=== PATIENT | male | born 1975 | race Caucasian/White ===

== ENCOUNTER 2018-06-24 17:55 | Emergency (ER) | payer MEDICAID, SELFPAY ==
[2018-06-24] VITALS (70 sets, daily range): BP systolic 92–193; BP diastolic 28–105; PULSE 50–81; RESP 9–28; TEMP 36.3; O2SAT 73–100
--- NOTE | 2018-06-24 18:22 | DI.CT_ITS ---
SYMPTOMS/DIAGNOSIS: AGITATED DELIRIUM, ALTERED MENTAL STATUS; VOMITING CT BRAIN, NONCONTRAST: No priors. There is normal finney-white matter differentiation. No intracranial hemorrhage, infarct, midline shift or mass effect is identified. The ventricles are intact. The basilar cisterns are patent. There is opacification of several ethmoid air cells. The visualized paranasal sinuses are otherwise clear. The mastoid air cells are well pneumatized. The calvarium is intact. IMPRESSION: No acute intracranial process. CT SCAN OF THE CHEST, ABDOMEN AND PELVIS: CT scan of the chest, abdomen and pelvis was performed following the uneventful administration of intravenous contrast material. There is some streak artifact present. The liver is normal in size and appearance. The portal and superior mesenteric veins are patent. The gallbladder is negative. No biliary ductal dilatation is seen. The pancreas, spleen and adrenal glands are unremarkable. The kidneys show normal and symmetric enhancement. No evidence of a solid renal mass or obstruction. The urinary bladder is incompletely distended. There is a Lawson catheter in place. There is a small amount of air within the bladder, most consistent with recent instrumentation. The reproductive organs are unremarkable. There is diverticulosis seen in the colon, but no evidence of acute diverticulitis. There is an air-filled appendix present. No periappendiceal changes are seen to suggest an acute appendicitis. The remainder of the bowel is unremarkable. Note is made of a nasogastric tube with its tip in the stomach. The aorta is of normal caliber. No significant abdominal or pelvic adenopathy, ascites or pneumoperitoneum is seen. Degenerative changes are seen in the spine with vacuum discs at L3-4 and L5-S1. IMPRESSION: No evidence of an acute abdomen. CT SCAN OF THE CHEST: There is an endotracheal tube, its tip is well above the oanh. Nasogastric tube passes into the stomach. The thoracic aorta is of normal caliber. Heart size is within normal limits. No significant pericardial effusion is seen. No significant mediastinal or hilar adenopathy is present. No significant axillary adenopathy is present. Note is made of multiple left rib fractures, some of which appear healed and some are nonunited. There are infiltrates seen in the lower lobes bilaterally and the dependent portion of the right upper lobe. There are small bilateral pleural effusions. There is no evidence of a pneumothorax. IMPRESSION: 1. Bilateral pulmonary infiltrates in the lower lobes and the right upper lobe. These may represent atelectasis or pneumonia. 2. Multiple old left rib fracture deformities.
[2018-06-24] MEDS: diphenhydrAMINE 50 MG/ML VIAL (18:25)
[2018-06-24] MEDS: Haloperidol 5 MG/ML VIAL (18:25)
[2018-06-24] MEDS: Normal Saline 1,000 ML 1000 ML IV ×4 (18:25→20:25)
[2018-06-24] MEDS: LORazepam 2 MG/ML VIAL (18:26)
[2018-06-24] MEDS: Etomidate 20 MG/10 ML VIAL IVP (18:35)
[2018-06-24] MEDS: Rocuronium 50 MG/5 ML SYR 100 MG IVP (18:35)
[2018-06-24] MEDS: PROPOFOL 1,000 MG/100 ML BTL 19.391 MG IVPB (18:40)
--- NOTE | 2018-06-24 18:46 | DI.RAD_ITS ---
SYMPTOMS/DIAGNOSIS: DEVICE PLACEMENT, INTUBATED CHEST X-RAY, PORTABLE AP VIEW: No priors. The heart size and pulmonary vasculature are within normal limits. There is poor inspiration. There is an infiltrate seen in the left lung base. This may represent atelectasis or pneumonia. No pneumothorax or pleural effusion is seen. There are old rib fractures, some of which appear nonunited. The endotracheal tube is in good position well above the oanh. The nasogastric tube is seen with its tip in the stomach. IMPRESSION: Left basilar infiltrate. This may represent atelectasis or pneumonia.
[2018-06-24 19:05] LABS: Abs Immature Grans 0.22 k/cumm (0.0-0.09); HCT 41.6 % (40.0-50.0); HGB 14.3 g/dL (13.5-17.5); Immature Grans % 0.7; Mean Corp. HGB Concentration 34.4 g/dL (32.0-36.0); Mean Corpuscular Hemoglobin 30.6 pg (27.0-33.0); Mean Corpuscular Volume 88.9 fL (80-95); Platelet Count 300 x1000/uL (130-400); RBC 4.68 m/cumm (4.50-6.00); RBC Distribution Width 12.9 % (11.8-14.1)
[2018-06-24 19:17] LABS: White Blood Cell Count 30.97 k/cumm (4.4-10.8)
[2018-06-24 19:19] LABS: *AMPHETAMINES SCREEN URINE Negative (Negative); *BARBITURATES SCREEN URINE Negative (Negative); *BENZODIAZEPINES SCREEN URINE Negative (Negative); Cannabinoids THC Negative (Negative); Cocaine Screen,Urine Negative (Negative); METHADONE URINE SCREEN Negative (Negative); OPIATES URINE SCREEN Negative (Negative)
[2018-06-24 19:20] LABS: Bilirubin Negative (Negative); Blood Negative (Negative); Clarity Clear; Glucose Negative (Negative); Ketones 15 mg/dL (Negative); Leukocyte Esterase Negative (Negative); Nitrite Negative (Negative); Specific Gravity >= 1.030 (1.005-1.025); Urobilinogen 0.2 EU/dL (Up TO 0.2); pH 5.5 (5-8)
[2018-06-24 19:23] LABS: C-Reactive Protein 0.59 mg/dL (0.0-0.3)
[2018-06-24 19:25] LABS: Salicylate 5.4 mg/dL (2.8-20.0)
[2018-06-24 19:30] LABS: Tricyclic Antidepressants Negative (Negative)
[2018-06-24 19:35] LABS: ALT 39 U/L (12-78); AST 52 U/L (15-37); Albumin 4.5 g/dL (3.4-5.0); Alkaline Phosphatase 84 U/L (46-116); Anion Gap 16.6 mmol/L (3-11); BUN 43 mg/dL (7-18); Bilirubin, Total 0.9 mg/dL (0.2-1.0); CO2 27.4 mmol/L (21.0-32.0); CREATININE 1.63 mg/dL (0.70-1.30); Calcium 9.8 mg/dL (8.5-10.1); Chloride 103 mmol/L (98-107); Estimated GFR 46.86 (mL/min/1.73m2); Glucose 77 mg/dL (70-100); Potassium 3.5 mmol/L (3.5-5.1); Sodium 147 mmol/L (136-145); TSH 0.83 uIU/mL (0.358-3.74); Total Protein 7.9 g/dL (6.4-8.2)
[2018-06-24 19:37] LABS: Ammonia 119 umol/L (11-32)
[2018-06-24 19:38] LABS: INR 1.1 (1.0-3.5); Prothrombin Time 11.1 sec (9.3-10.8)
[2018-06-24 19:43] LABS: Creatine Kinase 2068 U/L (39-308); Troponin I < 0.02 ng/mL (0.00-0.06)
--- NOTE | 2018-06-24 19:44 | DI.VRAD_ITS ---
EXAM: CT Head Without Intravenous Contrast EXAM DATE/TIME: 06/24/2018 6:31 PM CLINICAL HISTORY: 42 years old, male; Signs and symptoms; Altered mental status/memory loss; Confusion or disorientation; Patient HX: Altered, vomitting TECHNIQUE: Axial computed tomography images of the head/brain without intravenous contrast. All CT scans at this facility use at least one of these dose optimization techniques: automated exposure control; mA and/or kV adjustment per patient size (includes targeted exams where dose is matched to clinical indication); or iterative reconstruction. Coronal and sagittal reformatted images were created and reviewed. COMPARISON: No relevant prior studies available. FINDINGS: Brain: No acute intracranial hemorrhage identified. There is no midline shift. There are vascular calcifications. Ventricles: Normal. No ventriculomegaly. Bones/joints: Normal. No acute fracture. Sinuses: There is partial opacification of the ethmoid sinuses which can be seen with sinusitis. Superimposed polyps or mucosal retention cysts would be difficult to exclude. Mastoid air cells: Normal as visualized. No mastoid effusion. Soft tissues: Normal. IMPRESSION: 1. No acute intracranial hemorrhage identified. If symptoms remain concerning, MRI would be beneficial. 2. Sinus and other findings as above. Dictated and Authenticated by: Jacquie Lowery MD. Ordering:TORY RAMSAY MD
[2018-06-24 19:45] LABS: BE -3.1 mmol/L (-3-3); HCO3 24 mmol/L (22-28); pCO2 57 mmHg (34-47); pH 7.24 (7.35-7.45); pO2 115 mmHg (83-108); sO2 97 % (94-98); tCO2 23 mmol/L (22-29)
[2018-06-24 19:47] LABS: FIO2 50 %; FIO2L Ventilator L; Site Left Radial
[2018-06-24] MEDS: methylPREDNISolone SUCC 125 MG VIAL IVP (19:50)
--- NOTE | 2018-06-24 19:50 | DI.VRAD_ITS ---
EXAM: XR Chest, 1 View EXAM DATE/TIME: 06/24/2018 6:47 PM CLINICAL HISTORY: 42 years old, male; Device placement; Other: Intubated TECHNIQUE: XR of the chest, 1 view. COMPARISON: No relevant prior studies available. FINDINGS: Tubes, catheters and devices: ET tube tip is above oanh. NG tube tip overlies stomach. Lungs: There is elevation of the right hemidiaphragm. There are bibasilar and left retrocardiac opacities likely represent atelectasis, infection, or aspiration in the appropriate clinical setting. Pleural space: The right costophrenic angle is excluded from the exam. There is blunting of the left costophrenic angle which could represent a small effusion or scar. Heart/Mediastinum: There is prominence to the cardiomediastinal contours. This may be related to supine nature of the film and rotation however correlation is recommended. If mediastinal or vascular abnormality is a concern,, cross-sectional imaging could be obtained. Bones/joints: There are multiple old-appearing left-sided rib fractures. IMPRESSION: 1. Lines and tubes as above. 2. Bibasilar and left retrocardiac opacities that could represent atelectasis, infection, or aspiration in the appropriate clinical setting. 3. Blunting of the left costophrenic angle which could represent a small effusion or scar. 4.There is prominence to the cardiomediastinal contours. This may be related to supine nature of the film and rotation however correlation is recommended. If mediastinal or vascular abnormality is a concern,, cross-sectional imaging could be obtained. 5. Multiple old-appearing left-sided rib fractures. A CT scan has been performed. Correlation with those findings suggested. Dictated and Authenticated by: Jacquie Lowery MD. Ordering:TORY RAMSAY MD
[2018-06-24] MEDS: CIPROFLOXACIN 400 MG/200 ML BAG 200 MG IVPB (19:52)
[2018-06-24] MEDS: VANCOMYCIN 2,000 MG in Normal Saline 500 ML 250 MG IVPB (19:53)
[2018-06-24 19:55] LABS: ETHANOL BLOOD < 3.0 mg/dL (<3)
--- NOTE | 2018-06-24 20:04 | W.ED.GENAD ---
Discharge Plan Disposition Patient Disposition: [facility] Condition: Stable Discharge Details Chief Complaint: AMS/LOC Clinical Impression: Rhabdomyolysis, Encephalitis, Dehydration, severe, Delirium, Increased ammonia level, Pneumonia Primary Care Provider: Ozzie Weinstein ED Provider: Madan Larsen Home Meds and New Rx's Prescriptions: No Action simvastatin 40 MG tablet 40 mg PO HS RF: 0 paroxetine HCl 20 MG tablet 40 mg PO DAILY RF: 0 losartan 100 MG tablet 100 mg PO DAILY RF: 0 chlorthalidone 25 mg Tablet 25 mg PO DAILY RF: 0 baclofen 20 mg Tablet 20 mg PO TID PRNRF: 0 Medical Decision Making This is a 42-year-old male who presents for agitated delirium. States that he states that he is a normal this more to chart he went to [facility], however shortly after this he became extremely agitated and confused, he was throwing things in the house, running around, and speaking nonsensically. He had a rash yesterday on his lower abdomen, and this is seem to his ovaries over his chest abdomen pelvis and extremities. Family denies any recent tick bites, he did recently restart his baclofen which he used to be on in the past. In spite of the patient's extreme agitation family was eventually able to get him into the car and he was stuck between the 2 seats in the van they brought him here for further evaluation. It took greater than 7 people to restrain the patient. Initially Benadryl, Ativan, and Haldol were attempted to used to sedate him because of severe self-harm and harm to others, however this did not improve his symptoms whatsoever. He was then put in four-point restraints with the assistance of multiple individuals, for the protection of his himself and others. However in spite of this he continued to flail about and was clearly a danger to himself. After multiple attempts to help decrease the agitation for the patient the decision was made to intubate for protection of the patient and staff. Patient was intubated successfully without any significant complication. Patient had no fever here, and did appear hemodynamically stable. The first lab that came back with an elevated white count of 30, which may be reactive or secondary to infection. Differential is extremely broad for the patient, EKG shows no significant abnormalities. We are awaiting laboratory workup. I am concerned for potential sepsis versus meningitis or encephalitis especially with the patient's canker sore. We did start broad-spectrum antibiotic therapy of vancomycin, Cipro, and Bactrim (for listeria / pen allergy) for potential meningitis, as well as acyclovir for potential viral encephalitis or meningitis with the presence of his canker sore. We did give steroids for his rash in case this is EM, however differential still remains broad. It may be a vesicular rash which has progressed and now is the removed versus an allergic component. No signs of SJS, or TEN at this time. Patient's ammonia has come back and it is notably elevated, this may be a byproduct of his current symptomatology. He will be given Xifaxan. Patient does demonstrate notably elevated creatinine kinase of greater than 2000, which I feel most likely secondary to his swelling and previously agitated state. Troponin is normal. TSH is normal, UDS is negative. We are awaiting imaging at this time. Patient will require admission. EKG 19: 34 Rate 62, OK 198, every, grade, nightly, 1, sinus rhythm, no ST elevations or depressions. Inverted T wave in lead III. No Q waves. QRS is slightly widened at 114, however there is no brought terminal R wave in aVR, unlikely to suggest a TCA etiology. 9:18 PM Patient's imaging workup has returned, no evidence of acute abnormality. CT scan of the chest does demonstrate evidence of a questionable bleb versus isolated chronic pneumothorax and a very small area in the lower lung villarreal. No evidence of acute pneumothorax no other acute etiology to explain his symptoms. Troponin and EKG are benign. We will continue hydrating the patient. He is currently on his fourth liter for his rhabdo. I am uncertain as to the exact etiology of the patient's symptomatology. I did contact our hospitalist and discussed the case with him, he recommends transfer to another facility. I did contact [facility] and discussed the case with Dr. Rouse and Dr. Wiklinson who agreed to accept the patient to the ICU/Green team. Patient will be transferred to [facility]. I have extensively reviewed the treatment plan with the patient. I have addressed all patient concerns at this time. I have also discussed the plan with the admitting physician and they agree with the current assessment and plan and have agreed to assume responsibility for the patient. All parties demonstrate verbal understanding and agreement with our assessment and plan at this time. Upon my evaluation, this patient had a high probability of imminent or life-threatening deterioration, which required my direct attention, intervention, and personal management. I have personally provided 45 minutes of critical care time exclusive of time spent on separately billable procedures. Time includes review of laboratory data, radiology results, discussion with consultants, and monitoring for potential decompensation. Interventions were performed as documented above. Procedure: Endotracheal Intubation Indication: Respiratory Distress A time-out was completed verifying correct patient, procedure, site, positioning, and special equipment if applicable. The patient was placed in a flat position. Sedation was obtained using Etomidate 20mg and paralysis was obtained using Rocuronium 100mg. The patient was easily ventilated using an ambu bag. The [employer] was used and inserted into the oropharynx however I was unable to get a good visualization of the cords with a glide scope. We then removed the glide scope, inserted an oral airway, bag the patient up to 100% on the pulse ox, and we attempted intubation with a MAC 4 blade. Utilizing this there was a Grade 1 view of the vocal cords. A 7.5-burkinan endotracheal tube was inserted and visualized going through the vocal cords. The stylette was removed. Colorimetric change was visualized on the CO2 meter. Breath sounds were heard in both lung villarreal equally. The endotracheal tube was placed at 22 cm, measured at the teeth. A chest x-ray was ordered to assess for pneumothorax and verify endotrachealtube placement. No pneumothorax was seen and tube was in good position. The patient tolerated the procedure well and there were no complications. CXR IMPRESSION: 1. Lines and tubes as above. 2. Bibasilar and left retrocardiac opacities that could represent atelectasis, infection, or aspiration in the appropriate clinical setting. 3. Blunting of the left costophrenic angle which could represent a small effusion or scar. 4.There is prominence to the cardiomediastinal contours. This may be related to supine nature of the film and rotation however correlation is recommended. If mediastinal or vascular abnormality is a concern,, cross-sectional imaging could be obtained. 5. Multiple old-appearing left-sided rib fractures. A CT scan has been performed. Correlation with those findings suggested. Dictated and Authenticated by: Jacquie Lowery MD. CT Head Impression: 1. No acute intracranial hemorrhage identified. If symptoms remain concerning, MRI would be beneficial. 2. Sinus and other findings as above. CT C/A/P mpression: 1. ET tube is just above the superior oanh. Consider a bit of retraction with re-imaging. 2. Series 7 image 45 demonstrates a rounded 3.3 cm locule of gas in the left posterior pleural space for which a loculated pneumothorax is possible. Alternatively, given the bony changes to the left hemithorax, findings could represent a chronic herniation of a bleb into the pleural space. Clinical correlation is recommended. Comparison with older imaging studies, if available, would be beneficial. 2. There are patchy opacities in the dependent aspects of the lungs bilaterally, right greater than left. These could represent areas of atelectasis, infection, or aspiration in the appropriate clinical setting. 4. Multiple old appearing left sided rib deformities. These could be secondary to trauma or prior surgery. Clinical correlation recommended. Possible small right pleural effusion. Other findings as above. HPI General Date/Time Provider Initiated Documentation: 06/24/18 18:21. HPI Narrative: This is a 42-year-old male with a past medical history of drug use in the past, but not recently, anxiety, hypertension, and high cholesterol who presents today extremely agitated in an agitated delirium state. Family states that he has recently restarted on his home baclofen a few days ago, they did notice a small rash in his lower abdomen roughly 1-2 days ago which she states was itchy. Unsure if there are any vesicles, today he went to [place], and was acting slightly normal, family states that he accepted [employer] at [facility] and then ever since then went totally crazy. Throughout the rest of the day his rash progressed over his chest abdomen and extremities, the patient became confused, and extremely delirious. He was flailing throughout the house, trash the house per family, was extremely confrontational and agitated making nonsensical words and phrases, striking and attacking people. They were able to get him into the family van and brought into the front door of the emergency department. They state that he has been with them all day, has not taken any illicit drugs, has had no trauma. They do admit to a recent cough that the patient has been having, but denies any fevers, diarrhea or vomiting. They deny any previous history like this, they deny any other modifying factors. Past surgical history is positive for tonsillectomy. No recent IV or illicit drug use per family. Related Data Home Medications Medication Instructions Recorded Confirmed losartan 100 mg PO DAILY 12/23/13 06/24/18 paroxetine HCl 40 mg PO DAILY 12/23/13 06/24/18 simvastatin 40 mg PO HS 12/23/13 06/24/18 baclofen 20 mg PO TID PRN 06/24/18 06/24/18 chlorthalidone 25 mg PO DAILY 06/24/18 06/24/18 Allergies Allergy/AdvReac Type Severity Reaction Status Date / Time Penicillins Allergy Unknown Unverified 06/24/18 19:47 Sulfa (Sulfonamide AdvReac Intermediate vomitting Unverified 06/24/18 19:47 Antibiotics) General Stated Complaint: AMS/LOC KEN[place]ET[place]: 1 Review of Systems Review of Systems Unobtainable due to mental condition PFSH Social History Smoking/Tobacco Use Status: Current every day Exam Narrative Exam Narrative: 1.Const: Well-nourished, Well-developed, appearing stated age 2.Eyes: PERRL, no conjunctival injection, and symmetrical lids. Pupils are reactive, they are not overly dilated or constricted. 3.ENT: Atraumatic external nose and ears. Moist MM. Neck: Symmetric, trachea midline, No thyromegaly. No evidence of oral lesions, no evidence of vesicles in the mouth, patient does have a canker sore on his right lower lip. No neck stiffness that I can appreciate however the patient is flailing about and extremely agitated. 4.CVS: +S1/S2, No murmurs or gallops. Peripheral pulses 2+ and equal in all extremities. Brisk capillary refill in all extremities. 5.RESP: Unlabored respiratory effort. Clear to auscultation bilaterally. No wheezes rales or rhonchi 6.GI: Soft, Nontender/Nondistended, No hepatosplenomegaly. No guarding or rebound. 7.MSK: Normocephalic/Atraumatic, Extremities w/o deformity or ttp No cyanosis or clubbing, Normal movement of all extremities. No asterixis 8.Skin: Warm, Dry. Armpits are dry, however the patient is actively sweating on his forehead. Patient demonstrates a rash over his chest abdomen pelvis genitals arms and legs. No evidence of tick bite, or arthropod. The rash is blanchable, each lesion is circular and roughly 1 cm in diameter. There seems to be subtle central clearing, however there is also some resemblance to a do removed vesicle, however there are no vesicles at this time. Although there are lesions on the patient's genitals there does not appear to be any lesions on the general mucosal surface. No lesions in the mouth aside for a canker sore on the right lower lip. Negative Nikolsky sign. 9.Neuro: Patient is flailing about, actively striking out, he demonstrates movements of all extremities, no lead pipe rigidity. Unable to appreciate clonus. 10.Psych: The patient is in a state of agitated delirium. He is speaking nonsensically, striking out at visitors, flailing about and is requiring multiple people to restrain him. Speech does not make sense. Course Vital Signs Temperature 36.3 C L 06/24/18 18:20 Pulse 62 06/24/18 18:20 Respiratory Rate 28 H 06/24/18 18:20 Blood Pressure 102/46 L 06/24/18 18:20 Pulse Oximetry 97 06/24/18 18:20 Temperature 36.3 C L 06/24/18 18:20 Temperature Source Skin 06/24/18 18:20 Pulse 62 06/24/18 18:20 Respiratory Rate 14 06/24/18 19:30 Blood Pressure 102/46 L 06/24/18 18:20 Pulse Oximetry 99 06/24/18 19:30 Respiratory End-tidal CO2 39 06/24/18 19:30 Fraction of Inspired Oxygen (FIO2) 40 06/24/18 19:30 Lab/Test Results Lab/Test Results: 06/24/18 19:50 Blood Blood Culture - Pending 06/24/18 18:15 Blood Blood Culture - Pending Laboratory Tests Range/Units 06/24/18 06/24/18 06/24/18 18:15 18:15 18:15 PT (9.3-10.8) sec 11.1 H INR (1.0-3.5) 1.1 Sample Site pCO2 (34-47) mmHg pO2 (83-108) mmHg O2 Saturation (94-98) % ABG pH (7.35-7.45) ABG HCO3 (22-28) mmol/L ABG Total CO2 (22-29) mmol/L ABG Base Excess (-3-3) mmol/L Oxygen Liter Flow L FiO2 % Sodium (136-145) mmol/L 147 H Potassium (3.5-5.1) mmol/L 3.5 Chloride (98-107) mmol/L 103 Carbon Dioxide (21.0-32.0) mmol/L 27.4 Anion Gap (3-11) mmol/L 16.6 H BUN (7-18) mg/dL 43 H Creatinine (0.70-1.30) mg/dL 1.63 H Estimated GFR/1.73 m2 (mL/min/1.73m2) 46.86 Glucose (70-100) mg/dL 77 Calcium (8.5-10.1) mg/dL 9.8 Total Bilirubin (0.2-1.0) mg/dL 0.9 AST (15-37) U/L 52 H ALT (12-78) U/L 39 Alkaline Phosphatase (46-116) U/L 84 Ammonia Creatine Kinase (39-308) U/L 2068 H Troponin I (0.00-0.06) ng/mL < 0.02 C-Reactive Protein (0.0-0.3) mg/dL Total Protein (6.4-8.2) g/dL 7.9 Albumin (3.4-5.0) g/dL 4.5 TSH (0.358-3.74) uIU/mL 0.83 Urine Color (Yellow) Urine Clarity Urine pH (5-8) Ur Specific [place] (1.005-1.025) Urine Protein (Negative) mg/dL Urine Ketones (Negative) mg/dL Urine Blood (Negative) Urine Nitrite (Negative) Urine Bilirubin (Negative) Urine Urobilinogen (Up TO 0.2) EU/dL Ur Leukocyte Esterase (Negative) Urine Glucose (Negative) mg/dL Urine Opiates Screen (Negative) Urine Methadone Screen (Negative) Ur Barbiturates Screen (Negative) Ur Tricyclics Screen (Negative) Ur Amphetamines Screen (Negative) U Benzodiazepines Scrn (Negative) Urine Cocaine Screen (Negative) Ur THC Screen (Negative) Ethyl Alcohol (<3) mg/dL < 3.0 Range/Units 06/24/18 06/24/18 06/24/18 18:15 18:15 18:15 PT (9.3-10.8) sec INR (1.0-3.5) Sample Site pCO2 (34-47) mmHg pO2 (83-108) mmHg O2 Saturation (94-98) % ABG pH (7.35-7.45) ABG HCO3 (22-28) mmol/L ABG Total CO2 (22-29) mmol/L ABG Base Excess (-3-3) mmol/L Oxygen Liter Flow L FiO2 % Sodium (136-145) mmol/L Potassium (3.5-5.1) mmol/L Chloride (98-107) mmol/L Carbon Dioxide (21.0-32.0) mmol/L Anion Gap (3-11) mmol/L BUN (7-18) mg/dL Creatinine (0.70-1.30) mg/dL Estimated GFR/1.73 m2 (mL/min/1.73m2) Glucose (70-100) mg/dL Calcium (8.5-10.1) mg/dL Total Bilirubin (0.2-1.0) mg/dL AST (15-37) U/L ALT (12-78) U/L Alkaline Phosphatase (46-116) U/L Ammonia Creatine Kinase (39-308) U/L Troponin I (0.00-0.06) ng/mL C-Reactive Protein (0.0-0.3) mg/dL 0.59 H Total Protein (6.4-8.2) g/dL Albumin (3.4-5.0) g/dL TSH (0.358-3.74) uIU/mL Urine Color (Yellow) Yellow Urine Clarity Clear Urine pH (5-8) 5.5 Ur Specific [place] (1.005-1.025) >= 1.030 H Urine Protein (Negative) mg/dL Trace H Urine Ketones (Negative) mg/dL 15 H Urine Blood (Negative) Negative Urine Nitrite (Negative) Negative Urine Bilirubin (Negative) Negative Urine Urobilinogen (Up TO 0.2) EU/dL 0.2 Ur Leukocyte Esterase (Negative) Negative Urine Glucose (Negative) mg/dL Negative Urine Opiates Screen (Negative) Negative Urine Methadone Screen (Negative) Negative Ur Barbiturates Screen (Negative) Negative Ur Tricyclics Screen (Negative) Negative Ur Amphetamines Screen (Negative) Negative U Benzodiazepines Scrn (Negative) Negative Urine Cocaine Screen (Negative) Negative Ur THC Screen (Negative) Negative Ethyl Alcohol (<3) mg/dL Range/Units 06/24/18 06/24/18 06/24/18 18:22 19:00 19:40 PT (9.3-10.8) sec INR (1.0-3.5) Sample Site Left radial pCO2 (34-47) mmHg 57 H pO2 (83-108) mmHg 115 H O2 Saturation (94-98) % 97 ABG pH (7.35-7.45) 7.24 L ABG HCO3 (22-28) mmol/L 24 ABG Total CO2 (22-29) mmol/L 23 ABG Base Excess (-3-3) mmol/L -3.1 L Oxygen Liter Flow L Ventilator FiO2 % 50 Sodium (136-145) mmol/L Potassium (3.5-5.1) mmol/L Chloride (98-107) mmol/L Carbon Dioxide (21.0-32.0) mmol/L Anion Gap (3-11) mmol/L BUN (7-18) mg/dL Creatinine (0.70-1.30) mg/dL Estimated GFR/1.73 m2 (mL/min/1.73m2) Glucose (70-100) mg/dL Calcium (8.5-10.1) mg/dL Total Bilirubin (0.2-1.0) mg/dL AST (15-37) U/L ALT (12-78) U/L Alkaline Phosphatase (46-116) U/L Ammonia Cancelled 119 H Creatine Kinase (39-308) U/L Troponin I (0.00-0.06) ng/mL C-Reactive Protein (0.0-0.3) mg/dL Total Protein (6.4-8.2) g/dL Albumin (3.4-5.0) g/dL TSH (0.358-3.74) uIU/mL Urine Color (Yellow) Urine Clarity Urine pH (5-8) Ur Specific [place] (1.005-1.025) Urine Protein (Negative) mg/dL Urine Ketones (Negative) mg/dL Urine Blood (Negative) Urine Nitrite (Negative) Urine Bilirubin (Negative) Urine Urobilinogen (Up TO 0.2) EU/dL Ur Leukocyte Esterase (Negative) Urine Glucose (Negative) mg/dL Urine Opiates Screen (Negative) Urine Methadone Screen (Negative) Ur Barbiturates Screen (Negative) Ur Tricyclics Screen (Negative) Ur Amphetamines Screen (Negative) U Benzodiazepines Scrn (Negative) Urine Cocaine Screen (Negative) Ur THC Screen (Negative) Ethyl Alcohol (<3) mg/dL
--- NOTE | 2018-06-24 20:07 | ED.GENADUL_ITS ---
Discharge Plan Disposition Patient Disposition: [facility] Condition: Stable Discharge Details Chief Complaint: AMS/LOC Clinical Impression: Rhabdomyolysis, Encephalitis, Dehydration, severe, Delirium, Increased ammonia level, Pneumonia Primary Care Provider: Ozzie Weinstein ED Provider: Madan Larsen Home Meds and New Rx's Prescriptions: No Action simvastatin 40 MG tablet 40 mg PO HS RF: 0 paroxetine HCl 20 MG tablet 40 mg PO DAILY RF: 0 losartan 100 MG tablet 100 mg PO DAILY RF: 0 chlorthalidone 25 mg Tablet 25 mg PO DAILY RF: 0 baclofen 20 mg Tablet 20 mg PO TID PRNRF: 0 Medical Decision Making This is a 42-year-old male who presents for agitated delirium. States that he states that he is a normal this more to chart he went to [facility], however shortly after this he became extremely agitated and confused, he was throwing things in the house, running around, and speaking nonsensically. He had a rash yesterday on his lower abdomen, and this is seem to his ovaries over his chest abdomen pelvis and extremities. Family denies any recent tick bites, he did recently restart his baclofen which he used to be on in the past. In spite of the patient's extreme agitation family was eventually able to get him into the car and he was stuck between the 2 seats in the van they brought him here for further evaluation. It took greater than 7 people to restrain the patient. Initially Benadryl, Ativan, and Haldol were attempted to used to sedate him because of severe self-harm and harm to others, however this did not improve his symptoms whatsoever. He was then put in four- point restraints with the assistance of multiple individuals, for the protection of his himself and others. However in spite of this he continued to flail about and was clearly a danger to himself. After multiple attempts to help decrease the agitation for the patient the decision was made to intubate for protection of the patient and staff. Patient was intubated successfully without any significant complication. Patient had no fever here, and did appear hemodynamically stable. The first lab that came back with an elevated white count of 30, which may be reactive or secondary to infection. Differential is extremely broad for the patient, EKG shows no significant abnormalities. We are awaiting laboratory workup. I am concerned for potential sepsis versus meningitis or encephalitis especially with the patient' s canker sore. We did start broad-spectrum antibiotic therapy of vancomycin, Cipro, and Bactrim (for listeria / pen allergy) for potential meningitis, as well as acyclovir for potential viral encephalitis or meningitis with the presence of his canker sore. We did give steroids for his rash in case this is EM, however differential still remains broad. It may be a vesicular rash which has progressed and now is the removed versus an allergic component. No signs of SJS, or TEN at this time. Patient's ammonia has come back and it is notably elevated, this may be a byproduct of his current symptomatology. He will be given Xifaxan. Patient does demonstrate notably elevated creatinine kinase of greater than 2000, which I feel most likely secondary to his swelling and previously agitated state. Troponin is normal. TSH is normal, UDS is negative. We are awaiting imaging at this time. Patient will require admission. EKG 19: 34 Rate 62, IL 198, every, grade, nightly, 1, sinus rhythm, no ST elevations or depressions. Inverted T wave in lead III. No Q waves. QRS is slightly widened at 114, however there is no brought terminal R wave in aVR, unlikely to suggest a TCA etiology. 9:18 PM Patient's imaging workup has returned, no evidence of acute abnormality. CT scan of the chest does demonstrate evidence of a questionable bleb versus isolated chronic pneumothorax and a very small area in the lower lung villarreal. No evidence of acute pneumothorax no other acute etiology to explain his symptoms. Troponin and EKG are benign. We will continue hydrating the patient. He is currently on his fourth liter for his rhabdo. I am uncertain as to the exact etiology of the patient's symptomatology. I did contact our hospitalist and discussed the case with him, he recommends transfer to another facility. I did contact [facility] and discussed the case with Dr. Rouse and Dr. Wilkinson who agreed to accept the patient to the ICU/Green team. Patient will be transferred to [facility]. I have extensively reviewed the treatment plan with the patient. I have addressed all patient concerns at this time. I have also discussed the plan with the admitting physician and they agree with the current assessment and plan and have agreed to assume responsibility for the patient. All parties demonstrate verbal understanding and agreement with our assessment and plan at this time. Upon my evaluation, this patient had a high probability of imminent or life- threatening deterioration, which required my direct attention, intervention, and personal management. I have personally provided 45 minutes of critical care time exclusive of time spent on separately billable procedures. Time includes review of laboratory data, radiology results, discussion with consultants, and monitoring for potential decompensation. Interventions were performed as documented above. Procedure: Endotracheal Intubation Indication: Respiratory Distress A time-out was completed verifying correct patient, procedure, site, positioning , and special equipment if applicable. The patient was placed in a flat position. Sedation was obtained using Etomidate 20mg and paralysis was obtained using Rocuronium 100mg. The patient was easily ventilated using an ambu bag. The [employer] was used and inserted into the oropharynx however I was unable to get a good visualization of the cords with a glide scope. We then removed the glide scope, inserted an oral airway, bag the patient up to 100 % on the pulse ox, and we attempted intubation with a MAC 4 blade. Utilizing this there was a Grade 1 view of the vocal cords. A 7.5-[place] endotracheal tube was inserted and visualized going through the vocal cords. The stylette was removed. Colorimetric change was visualized on the CO2 meter. Breath sounds were heard in both lung villarreal equally. The endotracheal tube was placed at 22 cm, measured at the teeth. A chest x-ray was ordered to assess for pneumothorax and verify endotrachealtube placement. No pneumothorax was seen and tube was in good position. The patient tolerated the procedure well and there were no complications. CXR IMPRESSION: 1. Lines and tubes as above. 2. Bibasilar and left retrocardiac opacities that could represent atelectasis, infection, or aspiration in the appropriate clinical setting. 3. Blunting of the left costophrenic angle which could represent a small effusion or scar. 4.There is prominence to the cardiomediastinal contours. This may be related to supine nature of the film and rotation however correlation is recommended. If mediastinal or vascular abnormality is a concern,, cross-sectional imaging could be obtained. 5. Multiple old-appearing left-sided rib fractures. A CT scan has been performed. Correlation with those findings suggested. Dictated and Authenticated by: Jacquie Lowery MD. CT Head Impression: 1. No acute intracranial hemorrhage identified. If symptoms remain concerning, MRI would be beneficial. 2. Sinus and other findings as above. CT C/A/P mpression: 1. ET tube is just above the superior oanh. Consider a bit of retraction with re-imaging. 2. Series 7 image 45 demonstrates a rounded 3.3 cm locule of gas in the left posterior pleural space for which a loculated pneumothorax is possible. Alternatively, given the bony changes to the left hemithorax, findings could represent a chronic herniation of a bleb into the pleural space. Clinical correlation is recommended. Comparison with older imaging studies, if available, would be beneficial. 2. There are patchy opacities in the dependent aspects of the lungs bilaterally, right greater than left. These could represent areas of atelectasis, infection, or aspiration in the appropriate clinical setting. 4. Multiple old appearing left sided rib deformities. These could be secondary to trauma or prior surgery. Clinical correlation recommended. Possible small right pleural effusion. Other findings as above. HPI General Date/Time Provider Initiated Documentation: 06/24/18 18:21 . HPI Narrative: This is a 42-year-old male with a past medical history of drug use in the past, but not recently, anxiety, hypertension, and high cholesterol who presents today extremely agitated in an agitated delirium state. Family states that he has recently restarted on his home baclofen a few days ago, they did notice a small rash in his lower abdomen roughly 1-2 days ago which she states was itchy. Unsure if there are any vesicles, today he went to [facility], and was acting slightly normal, family states that he accepted [facility] at [facility] and then ever since then went totally crazy. Throughout the rest of the day his rash progressed over his chest abdomen and extremities, the patient became confused, and extremely delirious. He was flailing throughout the house, trash the house per family, was extremely confrontational and agitated making nonsensical words and phrases, striking and attacking people. They were able to get him into the family van and brought into the front door of the emergency department. They state that he has been with them all day, has not taken any illicit drugs, has had no trauma. They do admit to a recent cough that the patient has been having, but denies any fevers, diarrhea or vomiting. They deny any previous history like this, they deny any other modifying factors. Past surgical history is positive for tonsillectomy. No recent IV or illicit drug use per family. Related Data Home Medications Medication Instructions Recorded Confirmed losartan 100 mg PO DAILY 12/23/13 06/24/18 paroxetine HCl 40 mg PO DAILY 12/23/13 06/24/18 simvastatin 40 mg PO HS 12/23/13 06/24/18 baclofen 20 mg PO TID PRN 06/24/18 06/24/18 chlorthalidone 25 mg PO DAILY 06/24/18 06/24/18 Allergies Allergy/AdvReac Type Severity Reaction Status Date / Time Penicillins Allergy Unknown Unverified 06/24/18 19:47 Sulfa (Sulfonamide AdvReac Intermediate vomitting Unverified 06/24/18 19:47 Antibiotics) General Stated Complaint: AMS/LOC KENYETTA: 1 Review of Systems Review of Systems Unobtainable due to mental condition PFSH Social History Smoking/Tobacco Use Status: Current every day Exam Narrative Exam Narrative: 1.Const: Well-nourished, Well-developed, appearing stated age 2.Eyes: PERRL, no conjunctival injection, and symmetrical lids. Pupils are reactive, they are not overly dilated or constricted. 3.ENT: Atraumatic external nose and ears. Moist MM. Neck: Symmetric, trachea midline, No thyromegaly. No evidence of oral lesions, no evidence of vesicles in the mouth, patient does have a canker sore on his right lower lip. No neck stiffness that I can appreciate however the patient is flailing about and extremely agitated. 4.CVS: +S1/S2, No murmurs or gallops. Peripheral pulses 2+ and equal in all extremities. Brisk capillary refill in all extremities. 5.RESP: Unlabored respiratory effort. Clear to auscultation bilaterally. No wheezes rales or rhonchi 6.GI: Soft, Nontender/Nondistended, No hepatosplenomegaly. No guarding or rebound. 7.MSK: Normocephalic/Atraumatic, Extremities w/o deformity or ttp No cyanosis or clubbing, Normal movement of all extremities. No asterixis 8.Skin: Warm, Dry. Armpits are dry, however the patient is actively sweating on his forehead. Patient demonstrates a rash over his chest abdomen pelvis genitals arms and legs. No evidence of tick bite, or arthropod. The rash is blanchable, each lesion is circular and roughly 1 cm in diameter. There seems to be subtle central clearing, however there is also some resemblance to a do removed vesicle, however there are no vesicles at this time. Although there are lesions on the patient's genitals there does not appear to be any lesions on the general mucosal surface. No lesions in the mouth aside for a canker sore on the right lower lip. Negative Nikolsky sign. 9.Neuro: Patient is flailing about, actively striking out, he demonstrates movements of all extremities, no lead pipe rigidity. Unable to appreciate clonus. 10.Psych: The patient is in a state of agitated delirium. He is speaking nonsensically, striking out at visitors, flailing about and is requiring multiple people to restrain him. Speech does not make sense. Course Vital Signs Temperature 36.3 C L 06/24/18 18:20 Pulse 62 06/24/18 18:20 Respiratory Rate 28 H 06/24/18 18:20 Blood Pressure 102/46 L 06/24/18 18:20 Pulse Oximetry 97 06/24/18 18:20 Temperature 36.3 C L 06/24/18 18:20 Temperature Source Skin 06/24/18 18:20 Pulse 62 06/24/18 18:20 Respiratory Rate 14 06/24/18 19:30 Blood Pressure 102/46 L 06/24/18 18:20 Pulse Oximetry 99 06/24/18 19:30 Respiratory End-tidal CO2 39 06/24/18 19:30 Fraction of Inspired Oxygen (FIO2) 40 06/24/18 19:30 Lab/Test Results Lab/Test Results: 06/24/18 19:50 Blood Blood Culture - Pending 06/24/18 18:15 Blood Blood Culture - Pending Laboratory Tests Range/Units 06/24/18 06/24/18 06/24/18 18:15 18:15 18:15 PT (9.3-10.8) sec 11.1 H INR (1.0-3.5) 1.1 Sample Site pCO2 (34-47) mmHg pO2 (83-108) mmHg O2 Saturation (94-98) % ABG pH (7.35-7.45) ABG HCO3 (22-28) mmol/L ABG Total CO2 (22-29) mmol/L ABG Base Excess (-3-3) mmol/L Oxygen Liter Flow L FiO2 % Sodium (136-145) mmol/L 147 H Potassium (3.5-5.1) mmol/L 3.5 Chloride (98-107) mmol/L 103 Carbon Dioxide (21.0-32.0) mmol/L 27.4 Anion Gap (3-11) mmol/L 16.6 H BUN (7-18) mg/dL 43 H Creatinine (0.70-1.30) mg/dL 1.63 H Estimated GFR/1.73 m2 (mL/min/1.73m2) 46.86 Glucose (70-100) mg/dL 77 Calcium (8.5-10.1) mg/dL 9.8 Total Bilirubin (0.2-1.0) mg/dL 0.9 AST (15-37) U/L 52 H ALT (12-78) U/L 39 Alkaline Phosphatase (46-116) U/L 84 Ammonia Creatine Kinase (39-308) U/L 2068 H Troponin I (0.00-0.06) ng/mL < 0.02 C-Reactive Protein (0.0-0.3) mg/dL Total Protein (6.4-8.2) g/dL 7.9 Albumin (3.4-5.0) g/dL 4.5 TSH (0.358-3.74) uIU/mL 0.83 Urine Color (Yellow) Urine Clarity Urine pH (5-8) Ur Specific [place] (1.005-1.025) Urine Protein (Negative) mg/dL Urine Ketones (Negative) mg/dL Urine Blood (Negative) Urine Nitrite (Negative) Urine Bilirubin (Negative) Urine Urobilinogen (Up TO 0.2) EU/dL Ur Leukocyte Esterase (Negative) Urine Glucose (Negative) mg/dL Urine Opiates Screen (Negative) Urine Methadone Screen (Negative) Ur Barbiturates Screen (Negative) Ur Tricyclics Screen (Negative) Ur Amphetamines Screen (Negative) U Benzodiazepines Scrn (Negative) Urine Cocaine Screen (Negative) Ur THC Screen (Negative) Ethyl Alcohol (<3) mg/dL < 3.0 Range/Units 06/24/18 06/24/18 06/24/18 18:15 18:15 18:15 PT (9.3-10.8) sec INR (1.0-3.5) Sample Site pCO2 (34-47) mmHg pO2 (83-108) mmHg O2 Saturation (94-98) % ABG pH (7.35-7.45) ABG HCO3 (22-28) mmol/L ABG Total CO2 (22-29) mmol/L ABG Base Excess (-3-3) mmol/L Oxygen Liter Flow L FiO2 % Sodium (136-145) mmol/L Potassium (3.5-5.1) mmol/L Chloride (98-107) mmol/L Carbon Dioxide (21.0-32.0) mmol/L Anion Gap (3-11) mmol/L BUN (7-18) mg/dL Creatinine (0.70-1.30) mg/dL Estimated GFR/1.73 m2 (mL/min/1.73m2) Glucose (70-100) mg/dL Calcium (8.5-10.1) mg/dL Total Bilirubin (0.2-1.0) mg/dL AST (15-37) U/L ALT (12-78) U/L Alkaline Phosphatase (46-116) U/L Ammonia Creatine Kinase (39-308) U/L Troponin I (0.00-0.06) ng/mL C-Reactive Protein (0.0-0.3) mg/dL 0.59 H Total Protein (6.4-8.2) g/dL Albumin (3.4-5.0) g/dL TSH (0.358-3.74) uIU/mL Urine Color (Yellow) Yellow Urine Clarity Clear Urine pH (5-8) 5.5 Ur Specific [place] (1.005-1.025) >= 1.030 H Urine Protein (Negative) mg/dL Trace H Urine Ketones (Negative) mg/dL 15 H Urine Blood (Negative) Negative Urine Nitrite (Negative) Negative Urine Bilirubin (Negative) Negative Urine Urobilinogen (Up TO 0.2) EU/dL 0.2 Ur Leukocyte Esterase (Negative) Negative Urine Glucose (Negative) mg/dL Negative Urine Opiates Screen (Negative) Negative Urine Methadone Screen (Negative) Negative Ur Barbiturates Screen (Negative) Negative Ur Tricyclics Screen (Negative) Negative Ur Amphetamines Screen (Negative) Negative U Benzodiazepines Scrn (Negative) Negative Urine Cocaine Screen (Negative) Negative Ur THC Screen (Negative) Negative Ethyl Alcohol (<3) mg/dL Range/Units 06/24/18 06/24/18 06/24/18 18:22 19:00 19:40 PT (9.3-10.8) sec INR (1.0-3.5) Sample Site Left radial pCO2 (34-47) mmHg 57 H pO2 (83-108) mmHg 115 H O2 Saturation (94-98) % 97 ABG pH (7.35-7.45) 7.24 L ABG HCO3 (22-28) mmol/L 24 ABG Total CO2 (22-29) mmol/L 23 ABG Base Excess (-3-3) mmol/L -3.1 L Oxygen Liter Flow L Ventilator FiO2 % 50 Sodium (136-145) mmol/L Potassium (3.5-5.1) mmol/L Chloride (98-107) mmol/L Carbon Dioxide (21.0-32.0) mmol/L Anion Gap (3-11) mmol/L BUN (7-18) mg/dL Creatinine (0.70-1.30) mg/dL Estimated GFR/1.73 m2 (mL/min/1.73m2) Glucose (70-100) mg/dL Calcium (8.5-10.1) mg/dL Total Bilirubin (0.2-1.0) mg/dL AST (15-37) U/L ALT (12-78) U/L Alkaline Phosphatase (46-116) U/L Ammonia Cancelled 119 H Creatine Kinase (39-308) U/L Troponin I (0.00-0.06) ng/mL C-Reactive Protein (0.0-0.3) mg/dL Total Protein (6.4-8.2) g/dL Albumin (3.4-5.0) g/dL TSH (0.358-3.74) uIU/mL Urine Color (Yellow) Urine Clarity Urine pH (5-8) Ur Specific [place] (1.005-1.025) Urine Protein (Negative) mg/dL Urine Ketones (Negative) mg/dL Urine Blood (Negative) Urine Nitrite (Negative) Urine Bilirubin (Negative) Urine Urobilinogen (Up TO 0.2) EU/dL Ur Leukocyte Esterase (Negative) Urine Glucose (Negative) mg/dL Urine Opiates Screen (Negative) Urine Methadone Screen (Negative) Ur Barbiturates Screen (Negative) Ur Tricyclics Screen (Negative) Ur Amphetamines Screen (Negative) U Benzodiazepines Scrn (Negative) Urine Cocaine Screen (Negative) Ur THC Screen (Negative) Ethyl Alcohol (<3) mg/dL
--- NOTE | 2018-06-24 20:22 | DI.VRAD_ITS ---
EXAM: CT Chest With Intravenous Contrast EXAM DATE/TIME: 06/24/2018 6:31 PM CLINICAL HISTORY: 42 years old, male; Signs and symptoms; Vomiting; Other: Altered, vomitting; Additional info: Unable to hold breath/pt unresponsive TECHNIQUE: Axial computed tomography images of the chest with intravenous contrast. All CT scans at this facility use at least one of these dose optimization techniques: automated exposure control; mA and/or kV adjustment per patient size (includes targeted exams where dose is matched to clinical indication); or iterative reconstruction. Coronal and sagittal reformatted images were created and reviewed. CONTRAST: 125 ml of omni 350 administered intravenously. COMPARISON: No relevant prior studies available. FINDINGS: Limitations: This is a technically compromised examination secondary to motion. Tubes, catheters and devices: ET tube is just above the superior oanh. Consider a bit of retraction with re-imaging. NG tube tip is within stomach. Lungs: There are patchy opacities in the dependent aspects of the lungs bilaterally, right greater than left. These could represent areas of atelectasis, infection, or aspiration in the appropriate clinical setting. In the setting of pulmonary opacities, underlying neoplasia cannot be excluded. Pleural space: Series 7 image 45 demonstrates a rounded 3.3 cm locule of gas in the left posterior pleural space for which a loculated pneumothorax is possible. Alternatively, given the possible postsurgical changes to the left hemithorax, findings could represent a chronic herniation of a bleb into the pleural space. Clinical correlation is recommended. Comparison with older imaging studies, if available, would be beneficial. A possible small right pleural effusion is also seen (series 7 image 18). Heart: Normal. No cardiomegaly. No pericardial effusion. Pulmonary arteries: This study is not protocoled for the exclusion of pulmonary emboli. Aorta: Evaluation of the ascending aorta is limited secondary to motion. No aneurysm identified. The aorta and main pulmonary artery are similar in caliber which can be seen with pulmonary arterial hypertension. Lymph nodes: Unremarkable. No enlarged lymph nodes. Bones/joints: Multiple old appearing left sided rib deformities are seen. Skeletal degenerative changes. Soft tissues: Unremarkable. IMPRESSION: 1. ET tube is just above the superior oanh. Consider a bit of retraction with re-imaging. 2. Series 7 image 45 demonstrates a rounded 3.3 cm locule of gas in the left posterior pleural space for which a loculated pneumothorax is possible. Alternatively, given the bony changes to the left hemithorax, findings could represent a chronic herniation of a bleb into the pleural space. Clinical correlation is recommended. Comparison with older imaging studies, if available, would be beneficial. 2. There are patchy opacities in the dependent aspects of the lungs bilaterally, right greater than left. These could represent areas of atelectasis, infection, or aspiration in the appropriate clinical setting. 4. Multiple old appearing left sided rib deformities. These could be secondary to trauma or prior surgery. Clinical correlation recommended. Possible small right pleural effusion. Other findings as above. EXAM: CT Abdomen and Pelvis With Intravenous Contrast EXAM DATE/TIME: 06/24/2018 6:31 PM CLINICAL HISTORY: 42 years old, male; Signs and symptoms; Vomiting; Other: Altered, vomitting; Additional info: Unable to hold breath/pt unresponsive TECHNIQUE: Axial computed tomography images of the abdomen and pelvis with intravenous contrast. All CT scans at this facility use at least one of these dose optimization techniques: automated exposure control; mA and/or kV adjustment per patient size (includes targeted exams where dose is matched to clinical indication); or iterative reconstruction. Coronal and sagittal reformatted images were created and reviewed. CONTRAST: 125 ml of omni 350 administered intravenously. COMPARISON: No relevant prior studies available. FINDINGS: Limitations: This is a technically compromised examination secondary to streak artifact. Evaluation of the bowel is limited secondary to the lack of oral contrast. Tubes, catheters and devices: An NG tube tip is identified in the stomach. Lower thorax: See CT scan of the chest for further details. ABDOMEN: Liver: Normal. No mass. Gallbladder and bile ducts: Normal. No calcified stones. No ductal dilation. Pancreas: Normal. No ductal dilation. Spleen: Normal. No splenomegaly. Adrenals: Normal. No mass. Kidneys and ureters: Normal. No hydronephrosis. Stomach and bowel: There is some wall prominence to the proximal stomach which can be seen with gastritis in the appropriate clinical setting. No evidence of bowel obstruction. Appendix: The appendix measured dilated up to 7.7 mm. Other portions are normal in caliber. The appendix contains gas. There are no periappendiceal infiltrative changes. PELVIS: Bladder: A Lawson catheter is identified in the urinary bladder. There is gas within the urinary bladder which can be seen secondary to Lawson catheter placement or infection. There is urinary bladder wall prominence which can be seen with infection or under distention. Reproductive: Prostatic calcifications. ABDOMEN and PELVIS: Intraperitoneal space: No free air or free fluid. Bones/joints: Skeletal degenerative changes. Gas is noted at multiple disc spaces in the spine. In the absence of concern for infection, this is most likely secondary to vacuum phenomenon. Soft tissues: Small fat containing umbilical hernia. Vasculature: No abdominal aortic aneurysm. Lymph nodes: Normal. No enlarged lymph nodes. IMPRESSION: 1. Some wall prominence to the proximal stomach which can be seen with under distention or gastritis. 2. Portions of the appendix or measuring dilated area however, the appendix contains gas and no periappendiceal infiltrative changes are seen. This is therefore favored to represent normal variation but should be correlated with any concern for appendicitis. 3. Gas within the urinary bladder which can be seen secondary to Lawson catheter placement or infection. There is urinary bladder wall prominence which can be seen with infection or under distention. Correlation with urinalysis suggested. 4. Other findings as above. Dictated and Authenticated by: Jacquie Lowery MD. Ordering:TORY RAMSAY MD
[2018-06-24 20:30] LABS: Acetaminophen < 2 ug/mL (10-30)
[2018-06-24 20:31] LABS: ESR 11 MM/HR (0-15)
[2018-06-24] MEDS: Rifaximin 550 MG TAB PO (20:34)
[2018-06-24 20:45] LABS: Absolute Lymphocyte Count 1.86 k/cumm (1.2-3.4); Absolute Monocyte Count 1.24 k/cumm (0.11-0.7); Absolute Neutrophil Count 27.25 k/cumm (1.2-6.7)
[2018-06-24 20:46] LABS: Diff Comment Manual Differential; RBC Morphology Normal
[2018-06-24 21:01] LABS: WBC 0-2 HPF (0-5)
[2018-06-24 21:02] LABS: Bacteria Few HPF (Negative); Crystals Negative HPF (Negative); Epithelial Cells Rare HPF (Negative); Mucus Trace (Negative); Other Cells Few Renal (Negative); RBC Negative (0-2)
[2018-06-24 21:03] LABS: C & S Indicated? No; Casts 20-50 Hyaline LPF (Negative)
[2018-06-24] MEDS: Succinylcholine 200 MG/10 ML VIAL 100 MG IVP (21:50)
[2018-06-24] MEDS: LORazepam 2 MG/ML VIAL IVP (21:50)
[2018-06-24] MEDS: Ketamine 500 MG/10 ML VIAL 100 MG IVP (23:30)
--- NOTE | 2018-06-25 13:16 | PDOC.ERCMPRO ---
Care Management Progress Note 06/25-Karen from the lab called and stated that Tejinder was positive for MRSA. Tejinder was transferred to [facility] from this emergency department. Called [facility] ICU and spoke with Celia. Celia stated that Tejinder was a patient on their unit. Gave above test result and Celia read back.
--- NOTE | 2018-06-25 13:17 | CMPROGNOTE_ITS ---
Care Management Progress Note 06/25-Karen from the lab called and stated that Tejinder was positive for MRSA. Tejinder was transferred to [facility] from this emergency department. Called [facility] ICU and spoke with Celia. Celia stated that Tejinder was a patient on their unit. Gave above test result and Celia read back.
== END 2018-06-24 23:50 | disposition short-term general hospital (02) ==
PROVIDERS: Emergency Provider Student in an Organized Health Care Education/Training Program; PCP Family Medicine
DX: M62.82 Rhabdomyolysis (principal); G04.90 Encephalitis and encephalomyelitis, unspecified; E72.20 Disorder of urea cycle metabolism, unspecified; R41.0 Disorientation, unspecified; E86.0 Dehydration; J18.9 Pneumonia, unspecified organism
CPT/HCPCS: 31500; 36415; 71045; 74177; 80053; 80307; 82550; 82805; 85652; 87040; 87081; 93005; 96361; 96365; 96366; 99285; 36600; 70450; 71260; 80320; 80329; 81003; 81015; 82140; 84443; 84484; 85025; 85610; 86140; 93010; J0133; J0744; J1200; J1630; J2060; J2310; J2930

== ENCOUNTER 2018-07-05 10:43 | Outpatient (REF) | payer MEDICAID, SELFPAY ==
[2018-07-05 20:09] LABS: Anion Gap 8.8 mmol/L (3-11); BUN 17 mg/dL (7-18); CO2 30.2 mmol/L (21.0-32.0); CREATININE 0.84 mg/dL (0.70-1.30); Calcium 9.3 mg/dL (8.5-10.1); Chloride 101 mmol/L (98-107); Glucose 102 mg/dL (70-100); Potassium 4.3 mmol/L (3.5-5.1); Sodium 140 mmol/L (136-145)
== END 2018-07-05 11:03 ==
LOC: NCHCN 10:43
PROVIDERS: PCP Family Medicine; Visit Provider Physician Assistant Medical
DX: L03.90 Cellulitis, unspecified (principal); B95.62 Methicillin resistant Staphylococcus aureus infection as the cause of diseases classified elsewhere
CPT/HCPCS: 80048

== ENCOUNTER 2018-07-06 11:18 | Outpatient (REF) | payer MEDICAID, SELFPAY | END 2018-07-06 11:38 | LOC: NCHCN 11:18 | PROVIDERS: PCP Family Medicine; Visit Provider Nurse Practitioner Family | DX: L03.90 Cellulitis, unspecified (principal) | CPT/HCPCS: 87077; 83874; 87070; 87186; 87205 ==

== ENCOUNTER 2019-09-10 10:48 | Outpatient (REF) | payer MEDICAID, SELFPAY ==
[2019-09-10 19:44] LABS: Abs Immature Grans 0.11 k/cumm (0.0-0.09); Absolute Basophil Count 0.07 k/cumm (0.0-0.2); Absolute Eosinophil Count 0.36 k/cumm (0.0-0.7); Absolute Monocyte Count 0.93 k/cumm (0.11-0.7); Absolute Neutrophil Count 7.38 k/cumm (1.2-6.7); Basophils % 0.6; Eosinophils % 3.1; HCT 41.7 % (40.0-50.0); HGB 14.1 g/dL (13.5-17.5); Lymphocytes % 23.2; Mean Corp. HGB Concentration 33.8 g/dL (32.0-36.0); Mean Corpuscular Hemoglobin 30.7 pg (27.0-33.0); Mean Corpuscular Volume 90.8 fL (80-95); Mean Platelet Volume 11.6 fL (8.0-11.0); Monocytes % 8.1; Platelet Count 310 x1000/uL (130-400); RBC 4.59 m/cumm (4.50-6.00); RBC Distribution Width 13.2 % (11.8-14.1); White Blood Cell Count 11.53 k/cumm (4.4-10.8)
[2019-09-10 19:45] LABS: Absolute Lymphocyte Count 2.67 k/cumm (1.2-3.4)
[2019-09-10 20:17] LABS: ALT 40 U/L (16-63); AST 16 U/L (15-37); Albumin 4.2 g/dL (3.4-5.0); Alkaline Phosphatase 67 U/L (46-116); Anion Gap 7.5 mmol/L (3-11); BUN 18 mg/dL (7-18); Bilirubin, Total 0.5 mg/dL (0.2-1.0); CO2 33.5 mmol/L (21.0-32.0); CREATININE 1.03 mg/dL (0.70-1.30); Calcium 9.7 mg/dL (8.5-10.1); Calculated LDL 89 mg/dL; Chloride 101 mmol/L (98-107); Cholesterol 158 mg/dL (<200); Glucose 123 mg/dL (74-106); HDL Cholesterol 38 mg/dL (40-60); Potassium 4.1 mmol/L (3.5-5.1); Sodium 142 mmol/L (136-145); TSH (W/Ref FT4) 1.94 uIU/mL (0.36-3.74); Total Protein 7.5 g/dL (6.4-8.2); Triglyceride 156 mg/dL (<150)
== END 2019-09-10 11:08 ==
LOC: NCHCN 10:48
PROVIDERS: PCP Family Medicine; Visit Provider Physician Assistant
DX: E78.5 Hyperlipidemia, unspecified (principal); I10 Essential (primary) hypertension; Z00.00 Encounter for general adult medical examination without abnormal findings
CPT/HCPCS: 80053; 80061; 84443; 85025

== ENCOUNTER 2020-08-14 16:20 | Outpatient (REF) | payer MEDICAID, SELFPAY ==
[2020-08-14 19:39] LABS: ALT 80 U/L (16-63); AST 32 U/L (15-37); Albumin 4.6 g/dL (3.4-5.0); Alkaline Phosphatase 96 U/L (46-116); Anion Gap 10.7 mmol/L (3-11); BUN 22 mg/dL (7-18); Bilirubin, Total 0.4 mg/dL (0.2-1.0); CO2 29.3 mmol/L (21.0-32.0); Calcium 10.6 mg/dL (8.5-10.1); Chloride 97 mmol/L (98-107); Glucose 124 mg/dL (74-106); Potassium 3.6 mmol/L (3.5-5.1); Sodium 137 mmol/L (136-145); Total Protein 8.3 g/dL (6.4-8.2)
[2020-08-14 19:44] LABS: Hemoglobin A1C 6.1 % (<5.7)
== END 2020-08-14 16:40 ==
LOC: NCHCN 16:20
PROVIDERS: PCP Family Medicine; Visit Provider Physician Assistant
DX: R40.0 Somnolence (principal); R73.9 Hyperglycemia, unspecified
CPT/HCPCS: 80053; 83036

== ENCOUNTER 2020-12-14 14:55 | Outpatient (REF) | payer MEDICAID, SELFPAY ==
[2020-12-16 12:50] LABS: COVID-19 RT-PCR UVMMC Result Negative (Negative)
== END 2020-12-14 14:56 | disposition home or self-care (01) ==
LOC: NCHCN 14:55
PROVIDERS: PCP Family Medicine; Visit Provider Nurse Practitioner Family
DX: Z20.822 Contact with and (suspected) exposure to COVID-19 (principal)
CPT/HCPCS: U0003

== ENCOUNTER 2021-01-29 19:02 | Outpatient (REF) | payer MEDICAID, SELFPAY ==
[2021-01-29 19:31] LABS: ALT 76 U/L (16-63); AST 39 U/L (15-37); Albumin 4.4 g/dL (3.4-5.0); Alkaline Phosphatase 99 U/L (46-116); Anion Gap 11.2 mmol/L (3-11); BUN 19 mg/dL (7-18); Bilirubin, Total 0.9 mg/dL (0.2-1.0); CO2 27.8 mmol/L (21.0-32.0); Calcium 9.7 mg/dL (8.5-10.1); Chloride 100 mmol/L (98-107); Glucose 125 mg/dL (74-106); Potassium 3.3 mmol/L (3.5-5.1); Sodium 139 mmol/L (136-145)
[2021-01-29 19:32] LABS: Hemoglobin A1C 6.8 % (<5.7)
[2021-01-29 19:44] LABS: COMMENT (LAB VIEW ONLY) 294.95 mg/dL; Microalb ug/mg Crea 10.3 ug/mg Cr
== END 2021-01-29 19:03 | disposition home or self-care (01) ==
LOC: NCHCN 19:02
PROVIDERS: PCP Family Medicine; Visit Provider Physician Assistant
DX: R73.03 Prediabetes (principal)
CPT/HCPCS: 80053; 82043; 82570; 83036

== ENCOUNTER 2021-03-27 04:54 | Inpatient (IN) | payer MEDICAID, SELFPAY ==
[2021-03-27] VITALS (140 sets, daily range): BP systolic 102–182; BP diastolic 41–116; PULSE 72–109; RESP 11–36; TEMP 35.3–36.9; O2SAT 68–100
--- NOTE | 2021-03-27 05:00 | RT.EKG_ITS ---
APPROVED REPORT Exam: Resting ECG Reason for Exam: [facility] Patient Location: E HR:87 bpm ECG Measurements Heart Rate 87 AXIS PA 173 P 52 QRSd 106 QRS 22 QT 413 T 0 QTc 499 Conclusion Sinus rhythm...normal P axis, V-rate 60- 99 Physician: Rate 87, no significant ST elevation or depression. Sinus rhythm. Inverted T wave in jorge d III, Q waves in lead III, unchanged from prior EKG on 06/24/2018. No STEMI.
[2021-03-27] MEDS: LORazepam 2 MG/ML VIAL (05:14)
--- NOTE | 2021-03-27 05:15 | DI.RAD_ITS ---
Exam(s) XR PORTABLE CHEST AP POST LINE EXAM: XR PORTABLE CHEST AP POST LINE CLINICAL HISTORY: post intubation TECHNIQUE: COMPARISON: CR XR PORTABLE CHEST AP from 06/24/2018 FINDINGS: Supine portable AP chest films were obtained. The ET tube is present approximately 6 cm above the ca mendel. An NG tube is present, the tip of which overlies the gastric fundus. Lungs are grossly clear and well expanded. Multiple old healed left rib fractures noted. No gross p leural effusion seen on these supine images. IMPRESSION: RADIATION DOSE DELIVERED: Total DLP
[2021-03-27 05:19] LABS: BE (Venous) -1 mmol/L (-2-3); HCO3 (Venous) 25 mmol/L (23-28); O2 Sat (Venous) 78 %; TCO2 (Venous) 23 mmol/L (24-29); pCO2 (Venous) 46 mmHg (41-51); pH (Venous) 7.35 (7.31-7.41); pO2 (Venous) 47 mmHg
[2021-03-27 05:23] LABS: Lactate 4.3 mmol/L (0.6-1.4)
[2021-03-27 05:24] LABS: Abs Immature Grans 0.25 10^3/uL (0.0-0.06); HCT 39.8 % (40.0-50.0); HGB 13.4 g/dL (13.5-17.5); MCH 30.5 pg (27.0-33.0); MCHC 33.7 % (32.0-36.0); MCV 90.7 fL (80-95); MPV 11.5 fL (8.0-11.0); Nucleated RBC 0 %; Platelet Count 310 10^3/uL (130-400); RBC 4.39 10^6/uL (4.36-5.78); RDW 13.2 % (11.8-14.1); RDW-SD 43.4 fL
[2021-03-27] MEDS: Ketamine 500 MG/10 ML VIAL 250 MG IVP (05:26)
[2021-03-27] MEDS: Etomidate 20 MG/10 ML VIAL IVP (05:27)
[2021-03-27 05:32] LABS: ESR 17 mm/hr (0-15); WBC 27.16 10^3/uL (4.4-10.8)
[2021-03-27 05:34] LABS: C-Reactive Protein 2.96 mg/dL (0.0-0.3)
[2021-03-27] MEDS: Rocuronium 50 MG/5 ML SYR 100 MG IVP (05:34)
[2021-03-27 05:37] LABS: Ammonia 27 umol/L (11-32)
[2021-03-27 05:38] LABS: Salicylate 3.9 mg/dL (<2.8)
[2021-03-27 05:40] LABS: Absolute Lymphocyte Count 1.09 10^3/uL (1.2-3.4); Absolute Monocyte Count 1.09 10^3/uL (0.1-0.8); Absolute Neutrophil Count 24.99 10^3/uL (1.2-6.7); Bands % 1; Diff Comment Manual Differential; RBC Morphology Normal
[2021-03-27 05:45] LABS: Acetaminophen < 2 ug/mL (10-30)
[2021-03-27] MEDS: PROPOFOL 1,000 MG/100 ML BTL 35.52 MG IVPB ×3 (05:45→20:27)
[2021-03-27 05:46] LABS: ALT 74 U/L (16-63); AST 69 U/L (15-37); Albumin 4.4 g/dL (3.4-5.0); Alkaline Phosphatase 86 U/L (46-116); Anion Gap 17.5 mmol/L (3-11); BUN 47 mg/dL (7-18); CO2 25.5 mmol/L (21.0-32.0); CREATININE 1.8 mg/dL (0.70-1.30); Calcium 9.5 mg/dL (8.5-10.1); Chloride 107 mmol/L (98-107); Estimated GFR 41.19 (mL/min/1.73m2); Glucose 160 mg/dL (74-106); Potassium 3.2 mmol/L (3.5-5.1); Sodium 150 mmol/L (136-145); TSH (W/Ref FT4) 0.67 uIU/mL (0.36-3.74); Total Protein 8.3 g/dL (6.4-8.2)
[2021-03-27 05:51] LABS: Troponin I < 0.05 ng/mL (<0.06)
--- NOTE | 2021-03-27 05:51 | ED.GENADUL_ITS ---
Discharge Plan Disposition Patient Disposition: [facility] INPATIENT Condition: Serious Discharge Details Clinical Impression: Delirium, Altered mental status, Acute hypokalemia, Rhabdomyolysis, Rash and nonspecific skin eruption, Leukocytosis, Lactic acidosis Primary Care Provider: Ozzie Weinstein ED Provider: Madan Larsen Home Meds and New Rx's Prescriptions: No Action simvastatin 40 MG tablet 40 mg PO HS RF: 0 paroxetine HCl 20 MG tablet 40 mg PO DAILY RF: 0 losartan 100 MG tablet 100 mg PO DAILY RF: 0 chlorthalidone 25 mg Tablet 25 mg PO DAILY RF: 0 baclofen 20 mg Tablet 20 mg PO TID PRNRF: 0 Medical Decision Making This is a 45-year-old male with a past medical history of chronic back pain, hypertension, type 2 diabetes, high cholesterol, who presents today for notable agitated delirium. Coincidentally I saw and evaluated this patient 3 years ago in an extremely similar clinical scenario. At that time he had a sudden onset episode of extreme agitated delirium and violence which required sedation, intubation, and eventually led to a transfer to [facility] where no clear source of his symptoms or the event could be elicited. He did have a notably elevated ammonia level at that time, but work-up was otherwise equivocal. Today he presents in a very similar state. History comes from family, family states that patient has been having some social trouble some challenges at home. He was recently taken off of his baclofen medication within the past 2 to 3 days. Over the last 2 to 3 days family has noticed that he has been increasingly agitated and spastic, having notable atypical movements, and atypical sensorium. In spite of this he has been relatively stable, however this evening he became notably more agitated and incoherent. At 10 PM it got to the point where they felt intervention was needed. On an aside, they have also been noting that he has been purchasing multiple boxes of nicotine patches, and has been smoking tobacco, but otherwise deny any known drug use at this current time. Upon arrival to the ED the patient initially had an awareness of the scenario the situation, he had notable spastic movements but otherwise demonstrated a small degree of clear avoidance, however within 10 to 15 minutes of being here in the emergency department he became notably incoherent, would not speak clearly at all, became altered, and would flail about incessantly c ausing damage to both himself, the ED, and nursing staff. Patient during this time would complain of pain in his head and needing to urinate, which was remarkably similar to his last visit. No other known history, no other known modifying components. Upon initial arrival the patient was communicative, but definitely altered. He was able to answer some questions. He denied any drug use, review admitted to a mild headache, hitting his head on a tree outside, as well as feeling hyper aware. He demonstrated a notably muscular spastic nature, with his extremities however exam showed no clonus or hyperreflexia or asterixis. Unfortunately shortly after his arrival patient's symptoms notably progressed and worsened, he lost coherency, became much more spastic, would be bounding on and off the bed, rolling around, and then notably uncontrolled and very violent fashion. Inconsistent with a seizure though. IV had already been established, he was given 4 mg of IV Ativan which had no effect. Patient became a clear danger to self and others, unable to administer restraints secondary to the notable violent fashion of his uncontrolled flailing. The decision was made to sedate with ketamine, 250 mg were used provided good sedative effect. The decision was then made for an elective intubation to protect the patient's airway. This was performed without complication. Patient tolerated procedure well. Differential at this time is broad, last time the cause of the episode that was extremely similar if not nearly identical to this was never found while at [facility]. He did have an elevated ammonia level then, however that appears to not be the case today. He does have an atypical rash over his chest and abdomen, but shows no meningeal signs. No clinical evidence of meningococcemia. No genital lesions to suggest herpetic lesions. Encephalitis remains on the differential, however I feel that other concerning potential etiologies would be illicit drug use, nicotine overdose, or precipitated acute psychotic episode. Infectious etiology is certainly potential, however the uncertain as to what the source may be. Patient shows no meningeal signs, no nuchal rigidity. Patient has not received a Covid vaccine. We will give the future prescription of the head, broad laboratory work-up, monitor closely and reassess. Of note I did contact the patient's family twice and inform them of the scenario. They agree with the plan at this time. 6:50 AM Laboratory work-up is returned, notable white count of 27 with a left shift, 1 band, ESR elevated minimally at 17, CRP elevated at 2.9, lactate is high at 4.3, sodium 150, potassium 3.2. Anion gap of 17, CPK of 2900. Troponin normal, pending procalcitonin. Thyroid function normal, urinalysis stable, no infection. UDS negative, acetaminophen and salicylates negative. Still pending tick panel. Diagnoses at this time include lactic acidosis, leukocytosis, hypokalemia, rhabdomyolysis, suspected dehydration, continued encephalopathy and agitated delirium. Uncertain as to what the causative agent is still. Vital signs remained stable, patient stable on the vent. CT scan negative for acute process of the in the head, chest x-ray demonstrates mild cardiomegaly and mild perihilar infiltrates. No other significant abnormalities. Broad-spectrum antibiotics and antivirals were started early on in the patient's clinical course out of concern for infectious etiology. He was given vancomycin, aztreonam, doxycycline, and acyclovir. 7:26 AM Discussed the case with the hospitalist , he agrees with the assessment and plan. I will place bridging orders on his behalf. Of note patient was initially sedated with propofol, however we had to increase it to 80, which was now insufficient to maintain complete sedation. Will add a Versed drip. I have extensively reviewed the treatment plan with the patient. I have addressed all patient concerns at this time. I have also discussed the plan with the admitting physician and they agree with the current assessment and plan and have agreed to assume responsibility for the patient. All parties demonstrate verbal understanding and agreement with our assessment and plan at this time. The documentation in this chart was dictated using [employer] dictation software. Please excuse any dictation errors. EKG 6: 20 Rate 87, no significant ST elevation or depression. Sinus rhythm. Inverted T wave in lead III, Q waves in lead III, unchanged from prior EKG on 06/24/2018. No STEMI. FINDINGS: Tubes, catheters and devices: The endotracheal tube is approximately a 6 cm above the oanh. The NG tube is positioned into the proximal stomach with the side port near the GE junction. Lungs: See Heart/Mediastinum finding. Pleural spaces: No pleural effusion or pneumothorax is seen. Heart/Mediastinum: There is mild cardiomegaly with mild perihilar infiltrates. Bones/joints: The bones are demineralized and there are numerous remote appearing left rib fracture deformities. IMPRESSION: As detailed above. Thank you for allowing us to participate in the care of your patient. Dictated and Authenticated by: Mundo Oconnor MD 03/27/2021 6:53 AM Eastern Time ([place] & [place]) FINDINGS: Brain: The finney-white matter differentiation and basilar cisterns are maintained. There is no mass, mass effect or midline shift. No acute intracranial hemorrhage is identified. Cerebral ventricles: No intraventricular hemorrhage or mass. Paranasal sinuses: Visualized paranasal sinuses are clear. Mastoid air cells: Visualized mastoid air cells are well aerated and clear. Orbital cavity: The globes appear unremarkable and there is no retro-orbital abnormality. Bones/joints: Osseous structures are intact. No osteolytic or blastic bone lesions appreciated. Soft tissues: No focal scalp swelling or hematoma. IMPRESSION: 1. No acute intracranial process or trauma identified. Thank you for allowing us to participate in the care of your patient. Dictated and Authenticated by: Mundo Oconnor MD HPI General Date/Time Provider Initiated Documentation: 03/27/21 04:54 . HPI Narrative: This is a 45-year-old male with a past medical history of chronic back pain, hypertension, type 2 diabetes, high cholesterol, who presents today for n otable agitated delirium. Coincidentally I saw and evaluated this patient 3 years ago in an extremely similar clinical scenario. At that time he had a sudden onset episode of extreme agitated delirium and violence which required sedation, intubation, and eventually led to a transfer to [facility] where no clear source of his symptoms or the event could be elicited. He did have a notably elevated ammonia level at that time, but work-up was otherwise equivocal. Today he presents in a very similar state. History comes from family, family states that patient has been having some social trouble some challenges at home. He was recently taken off of his baclofen medication within the past 2 to 3 days. Over the last 2 to 3 days family has noticed that he has been increasingly agitated and spastic, having notable atypical movements, and atypical sensorium. In spite of this he has been relatively stable, however this evening he became notably more agitated and incoherent. At 10 PM it got to the point where they felt intervention was needed. On an aside, they have also been noting that he has been purchasing multiple boxes of nicotine patches, and has been smoking tobacco, but otherwise deny any known drug use at this current time. Upon arrival to the ED the patient initially had an awareness of the scenario the situation, he had notable spastic movements but otherwise demonstra rojelio a small degree of clear avoidance, however within 10 to 15 minutes of being here in the emergency department he became notably incoherent, would not speak clearly at all, became altered, and would flail about incessantly causing damage to both himself, the ED, and nursing staff. Patient during this time would complain of pain in his head and needing to urinate, which was remarkably similar to his last visit. No other known history, no other known modifying components. Related Data Home Medications Medication Instructions Recorded Confirmed losartan 100 mg PO DAILY 12/23/13 06/24/18 paroxetine HCl 40 mg PO DAILY 12/23/13 06/24/18 simvastatin 40 mg PO HS 12/23/13 06/24/18 baclofen 20 mg PO TID PRN 06/24/18 06/24/18 chlorthalidone 25 mg PO DAILY 06/24/18 06/24/18 Allergies Allergy/AdvReac Type Severity Reaction Status Date / Time Penicillins Allergy Unknown Unverified 06/24/18 19:47 Sulfa (Sulfonamide AdvReac Intermediate vomitting Unverified 06/24/18 19:47 Antibiotics) General Stated Complaint: AMS/LOC KENYETTA: 1 Review of Systems All systems reviewed & are unremarkable except as noted in HPI and below PFSH Social History Smoking/Tobacco Use Status: Current every day Smoking risk assessment performed?: Yes Drug use: Never Do you feel safe at home: Yes Do you feel safe in your relationship?: Yes Exam Narrative Exam Narrative: 1.Const: Well-nourished, Well-developed, appearing stated age, but somewhat disheveled with notable amount of dirt under his legs and feet 2.Eyes: PERRL, no conjunctival injection, and symmetrical lids. No pinpoint pupils. 3.ENT: Atraumatic external nose and ears. Moist MM. Neck: Symmetric, trachea midline, No thyromegaly. No nuchal rigidity. No meningiomas. 4.CVS: +S1/S2, No murmurs or gallops. Peripheral pulses 2+ and equal in all extremities. Brisk capillary refill in all extremities. 5.RESP: Unlabored respiratory effort. Clear to auscultation bilaterally. No wheezes rales or rhonchi 6.GI: Soft, Nontender/Nondistended, No hepatosplenomegaly. No guarding or rebound. 7.MSK: Normocephalic/Atraumatic, Extremities w/o deformity or ttp No cyanosis or clubbing, notable spastic movement of all extremities, however the patient showed no asterixis on exam and no clonus of his arms, legs or feet. No evidence of leadpipe rigidity. No hyperreflexia. 8.Skin: Warm, Dry. The patient has an atypical rash over his chest and abdomen, intermittent small 1.5 cm in diameter red blanching macules. No hives, no evidence of erythema migrans. Negative Nikolsky sign. No large vesicles or bulla. No palpable purpura. No oral lesions. No mucosal lesions. No evidence of severe cellulitis. 9.Neuro: band booker II-XII grossly intact. Sensation grossly intact, spastic movement of all extremities that appears to be somewhat controlled by the patient. 10.Psych: (AAO) x0. Altered, pressured incoherent speech. Mainly focused on needing to urinate Course Vital Signs Vital signs: Vital Signs Temperature 36.8 C 03/27/21 05:07 Pulse 99 H 03/27/21 05:07 Respiratory Rate 03/27/21 05:07 Blood Pressure 182/116 H 03/27/21 05:07 Temperature 36.8 C 03/27/21 05:07 Pulse 99 H 03/27/21 05:07 Respiratory Rate 03/27/21 05:07 Blood Pressure 182/116 H 03/27/21 05:07 Lab/Test Results Lab/Test Results: 03/27/21 05:20 Blood Blood Culture - Pending 03/27/21 05:20 Blood Blood Culture - Pending Laboratory Tests Range/Units 03/27/21 03/27/21 03/27/21 05:10 05:15 05:15 WBC (4.4-10.8) 10^3/uL RBC (4.36-5.78) 10^6/uL Hgb (13.5-17.5) g/dL Hct (40.0-50.0) % MCV (80-95) fL MCH (27.0-33.0) pg MCHC (32.0-36.0) % RDW (11.8-14.1) % Plt Count (130-400) 10^3/uL MPV (8.0-11.0) fL Immature Gran % Neutrophils % Band Neutrophils % Lymphocytes % Monocytes % Eosinophils % Basophils % Nucleated RBC % % Absolute Neutrophils (1.2-6.7) 10^3/uL Absolute Lymphocytes (1.2-3.4) 10^3/uL Absolute Monocytes (0.1-0.8) 10^3/uL Absolute Eosinophils (0.0-0.7) 10^3/uL Absolute Basophils (0.0-0.2) 10^3/uL RBC Morphology ESR (0-15) mm/hr VBG pH (7.31-7.41) 7.35 VBG pCO2 (41-51) mmHg 46 VBG pO2 mmHg 47 VBG HCO3 (23-28) mmol/L 25 VBG Total CO2 (24-29) mmol/L 23 L VBG O2 Saturation % 78 VBG Base Excess (-2-3) mmol/L -1 VBG Lactate (0.6-1.4) mmol/L Sodium (136-145) mmol/L Potassium (3.5-5.1) mmol/L Chloride (98-107) mmol/L Carbon Dioxide (21.0-32.0) mmol/L Anion Gap (3-11) mmol/L BUN (7-18) mg/dL Creatinine (0.70-1.30) mg/dL Estimated GFR/1.73 m2 (mL/min/1.73m2) Glucose (74-106) mg/dL Calcium (8.5-10.1) mg/dL Total Bilirubin (0.2-1.0) mg/dL AST (15-37) U/L ALT (16-63) U/L Alkaline Phosphatase (46-116) U/L Ammonia (11-32) umol/L 27 Troponin I (<0.06) ng/mL C-Reactive Protein (0.0-0.3) mg/dL Total Protein (6.4-8.2) g/dL Albumin (3.4-5.0) g/dL TSH (0.36-3.74) uIU/mL Salicylates (<2.8) mg/dL 3.9 Acetaminophen (10-30) ug/mL < 2 Range/Units 03/27/21 03/27/21 03/27/21 05:15 05:15 05:15 WBC (4.4-10.8) 10^3/uL 27.16 H* RBC (4.36-5.78) 10^6/uL 4.39 Hgb (13.5-17.5) g/dL 13.4 L Hct (40.0-50.0) % 39.8 L MCV (80-95) fL 90.7 MCH (27.0-33.0) pg 30.5 MCHC (32.0-36.0) % 33.7 RDW (11.8-14.1) % 13.2 Plt Count (130-400) 10^3/uL 310 MPV (8.0-11.0) fL 11.5 H Immature Gran % 0.0 Neutrophils % 91.0 Band Neutrophils % 1 Lymphocytes % 4.0 Monocytes % 4.0 Eosinophils % 0.0 Basophils % 0.0 Nucleated RBC % % 0 Absolute Neutrophils (1.2-6.7) 10^3/uL 24.99 H Absolute Lymphocytes (1.2-3.4) 10^3/uL 1.09 L Absolute Monocytes (0.1-0.8) 10^3/uL 1.09 H Absolute Eosinophils (0.0-0.7) 10^3/uL 0.00 Absolute Basophils (0.0-0.2) 10^3/uL 0.00 RBC Morphology Normal ESR (0-15) mm/hr VBG pH (7.31-7.41) VBG pCO2 (41-51) mmHg VBG pO2 mmHg VBG HCO3 (23-28) mmol/L VBG Total CO2 (24-29) mmol/L VBG O2 Saturation % VBG Base Excess (-2-3) mmol/L VBG Lactate (0.6-1.4) mmol/L 4.3 H* Sodium (136-145) mmol/L 150 H Potassium (3.5-5.1) mmol/L 3.2 L Chloride (98-107) mmol/L 107 Carbon Dioxide (21.0-32.0) mmol/L 25.5 Anion Gap (3-11) mmol/L 17.5 H BUN (7-18) mg/dL 47 H Creatinine (0.70-1.30) mg/dL 1.8 H Estimated GFR/1.73 m2 (mL/min/1.73m2) 41.19 Glucose (74-106) mg/dL 160 H Calcium (8.5-10.1) mg/dL 9.5 Total Bilirubin (0.2-1.0) mg/dL 1.0 AST (15-37) U/L 69 H ALT (16-63) U/L 74 H Alkaline Phosphatase (46-116) U/L 86 Ammonia (11-32) umol/L Troponin I (<0.06) ng/mL < 0.05 C-Reactive Protein (0.0-0.3) mg/dL Total Protein (6.4-8.2) g/dL 8.3 H Albumin (3.4-5.0) g/dL 4.4 TSH (0.36-3.74) uIU/mL 0.67 Salicylates (<2.8) mg/dL Acetaminophen (10-30) ug/mL Range/Units 03/27/21 03/27/21 05:15 05:15 WBC (4.4-10.8) 10^3/uL RBC (4.36-5.78) 10^6/uL Hgb (13.5-17.5) g/dL Hct (40.0-50.0) % MCV (80-95) fL MCH (27.0-33.0) pg MCHC (32.0-36.0) % RDW (11.8-14.1) % Plt Count (130-400) 10^3/uL MPV (8.0-11.0) fL Immature Gran % Neutrophils % Band Neutrophils % Lymphocytes % Monocytes % Eosinophils % Basophils % Nucleated RBC % % Absolute Neutrophils (1.2-6.7) 10^3/uL Absolute Lymphocytes (1.2-3.4) 10^3/uL Absolute Monocytes (0.1-0.8) 10^3/uL Absolute Eosinophils (0.0-0.7) 10^3/uL Absolute Basophils (0.0-0.2) 10^3/uL RBC Morphology ESR (0-15) mm/hr 17 H VBG pH (7.31-7.41) VBG pCO2 (41-51) mmHg VBG pO2 mmHg VBG HCO3 (23-28) mmol/L VBG Total CO2 (24-29) mmol/L VBG O2 Saturation % VBG Base Excess (-2-3) mmol/L VBG Lactate (0.6-1.4) mmol/L Sodium (136-145) mmol/L Potassium (3.5-5.1) mmol/L Chloride (98-107) mmol/L Carbon Dioxide (21.0-32.0) mmol/L Anion Gap (3-11) mmol/L BUN (7-18) mg/dL Creatinine (0.70-1.30) mg/dL Estimated GFR/1.73 m2 (mL/min/1.73m2) Glucose (74-106) mg/dL Calcium (8.5-10.1) mg/dL Total Bilirubin (0.2-1.0) mg/dL AST (15-37) U/L ALT (16-63) U/L Alkaline Phosphatase (46-116) U/L Ammonia (11-32) umol/L Troponin I (<0.06) ng/mL C-Reactive Protein (0.0-0.3) mg/dL 2.96 H Total Protein (6.4-8.2) g/dL Albumin (3.4-5.0) g/dL TSH (0.36-3.74) uIU/mL Salicylates (<2.8) mg/dL Acetaminophen (10-30) ug/mL Procedures Intubation Time out performed: Yes sedative: other (ketamine 250mg and etomidate 20mg) Mg Given: 20 paralytic: Rocuronium Mg Given: 100 Laryngoscope: Hayder ET Tube Size: 7.5 ET Tube Uncuffed: Yes Tube Secured Depth (cm): 23 Tube Secured Location: teeth Tube Placement Confirmation: visualized tube passing through cords, equal breath sounds bilaterally, no breath sounds over epigastrum and confirmation by capnometry Patient Tolerated Procedure: well Intubation Complications: none Critical Care Time Critical Care Time Critical Care Time: Yes Total Critical Care Time: 45 Attestation: Upon my evaluation, this patient had a high probability of imminent or life-threatening deterioration, which required my direct attention, intervention, and personal management. I have personally provided 45 minutes of critical care time exclusive of time spent on separately billable procedures. Time includes review of laboratory data, radiology results, discussion with consultants, and monitoring for potential decompensation. Interventions were performed as documented.
[2021-03-27 05:57] LABS: ETHANOL BLOOD < 3.0 mg/dL (<3)
[2021-03-27] MEDS: DOXYCYCLINE 100 MG in Normal Saline 100 ML IVPB ×2 (06:05→19:30)
[2021-03-27] MEDS: Normal Saline 1,000 ML 1000 ML IV ×3 (06:05→07:32)
--- NOTE | 2021-03-27 06:05 | DI.CT_ITS ---
Exam(s) CT HEAD WO EXAM: CT HEAD WO CLINICAL HISTORY: altered mental status. TECHNIQUE: Imaging Protocol: Axial computed tomography images with coronal and sagittal reformatted images were created and reviewed COMPARISON: CT CT HEAD WO from 06/24/2018 FINDINGS: Note is made of NG and ET tubes in position. The ventricular system is normal in appearance. No evidence of acute intracranial hemorrhage, mass effect, or midline shift. The orbital structures are unremarkable. The temporal bone structures appear intact. Calvarium: Normal. Visualized Paranasal sinuses/Mastoids: Clear. IMPRESSION: No evidence of acute intracranial process. RADIATION DOSE DELIVERED: 888.81mGy.cm Total DLP 888.81mGy.cm Total DLP 888.81mGy.cm Total DLP CTDIvol DATA REPOSITORY: All CT scans at this facility are submitted to the National Radiology Data Registry (NRDR) Dose Index Registry (DIR) with the [employer] ([employer]). RADIATION OPTIMIZATION: All CT scans at this facility use at least one of these dose optimization te chniques: automated exposure control; mA and/or kV adjustment per patient size (includes targeted exa ms where dose is matched to clinical indication); or iterative reconstruction.
[2021-03-27] MEDS: PROPOFOL 500 MG/50 ML BTL 35.4 MG IVPB (06:06)
[2021-03-27 06:11] LABS: Creatine Kinase 2962 U/L (39-308)
[2021-03-27 06:24] LABS: Bilirubin Negative (Negative); Blood Small (Negative); Clarity Sl Cloudy (Clear); Glucose Negative (Negative); Ketones Trace mg/dL (Negative); Leukocyte Esterase Negative (Negative); Nitrite Negative (Negative); Specific Gravity >= 1.030 (1.005-1.025); Urobilinogen 0.2 EU/dL (Up TO 0.2); pH 5.5 (5-8)
[2021-03-27] MEDS: VANCOMYCIN 2,000 MG in Normal Saline 500 ML 333.3333 MG IVPB (06:25)
[2021-03-27 06:30] LABS: BE 0 mmol/L (-2-3); HCO3 26 mmol/L (22-26); pCO2 45 mmHg (35-45); pH 7.37 (7.35-7.45); pO2 132 mmHg (80-105); sO2 99 % (95-98); tCO2 23 mmol/L (23-27)
[2021-03-27 06:32] LABS: Bacteria Few HPF (Negative); C & S Indicated? No; Casts 3-5 Hyaline LPF (Negative); Crystals Negative HPF (Negative); Epithelial Cells Few HPF (Negative); Mucus Negative (Negative); WBC 0-2 HPF (0-5)
[2021-03-27 06:33] LABS: FIO2 50 %; Site Left Radial
[2021-03-27 06:34] LABS: *AMPHETAMINES SCREEN URINE Negative (Negative); *BARBITURATES SCREEN URINE Negative (Negative); *BENZODIAZEPINES SCREEN URINE Negative (Negative); Cannabinoids THC Negative (Negative); Cocaine Screen,Urine Negative (Negative); METHADONE URINE SCREEN Negative (Negative); OPIATES URINE SCREEN Negative (Negative)
[2021-03-27 06:35] LABS: Tricyclic Antidepressants Negative (Negative)
--- NOTE | 2021-03-27 06:53 | DI.VRAD_ITS ---
PROCEDURE INFORMATION: Exam: XR Chest Exam date and time: 03/27/2021 5:20 AM Age: 45 years old Clinical indication: Device placement; Ett placement (vent status) TECHNIQUE: Imaging protocol: XR of the chest. Views: 1 view. COMPARISON: CT CHEST/ABD/PEL W 06/24/2018 7:04 PM FINDINGS: Tubes, catheters and devices: The endotracheal tube is approximately a 6 cm above the oanh. The NG tube is positioned into the proximal stomach with the side port near the GE junction. Lungs: See Heart/Mediastinum finding. Pleural spaces: No pleural effusion or pneumothorax is seen. Heart/Mediastinum: There is mild cardiomegaly with mild perihilar infiltrates. Bones/joints: The bones are demineralized and there are numerous remote appearing left rib fracture deformities. IMPRESSION: As detailed above. Dictated and Authenticated by: Mundo Oconnor MD. Ordering:TORY Hager MD
[2021-03-27 06:55] LABS: Procalcitonin 0.1 ng/mL
--- NOTE | 2021-03-27 06:55 | DI.VRAD_ITS ---
PROCEDURE INFORMATION: Exam: CT Head Without Contrast Exam date and time: 03/27/2021 5:11 AM Age: 45 years old Clinical indication: Other: Altered mental status TECHNIQUE: Imaging protocol: Computed tomography of the head without contrast. Radiation optimization: All CT scans at this facility use at least one of these dose optimization techniques: automated exposure control; mA and/or kV adjustment per patient size (includes targeted exams where dose is matched to clinical indication); or iterative reconstruction. COMPARISON: CT HEAD WO 06/24/2018 7:01 PM FINDINGS: Brain: The finney-white matter differentiation and basilar cisterns are maintained. There is no mass, mass effect or midline shift. No acute intracranial hemorrhage is identified. Cerebral ventricles: No intraventricular hemorrhage or mass. Paranasal sinuses: Visualized paranasal sinuses are clear. Mastoid air cells: Visualized mastoid air cells are well aerated and clear. Orbital cavity: The globes appear unremarkable and there is no retro-orbital abnormality. Bones/joints: Osseous structures are intact. No osteolytic or blastic bone lesions appreciated. Soft tissues: No focal scalp swelling or hematoma. IMPRESSION: 1. No acute intracranial process or trauma identified. Dictated and Authenticated by: Mundo Oconnor MD. Ordering:TORY Hager MD
[2021-03-27] MEDS: POTASSIUM CHLORIDE 20 MEQ/100 ML BAG 50 MEQ IVPB ×3 (07:26→16:38)
[2021-03-27 08:01] LABS: COVID-19 PCR Negative (Negative)
[2021-03-27] MEDS: MIDAZOLAM 50 MG in Normal Saline 90 ML IV (08:07)
[2021-03-27] MEDS: AZTREONAM 2,000 MG in Normal Saline 100 ML 200 MG IVPB ×3 (08:23→22:23)
[2021-03-27] MEDS: PROPOFOL 1,000 MG/100 ML BTL 53.28 MG IVPB ×2 (09:50→13:15)
[2021-03-27] MEDS: Normal Saline 500 ML 30 ML IV (10:32)
--- NOTE | 2021-03-27 10:59 | W.PM.HP.N ---
Date of service: 03/27/21 Time of Service: 10:59 Assessment and Plan Assessment and plan (1) Altered mental status: Status: Acute Assessment and plan: ddx: seizure, acute metabolic encephalopathy d/t baclofen withdrawal, meningoencephalitis, delirium d/t sepsis; toxic encephalopathy d/t illicit drug use (note UDS was negative for drugs of abuse and parents state no known drug use other than rare alcohol use), infectious encephalopathy d/t viral meningoencephalitis or d/t tick borne illness Will plan for spinal lumbar puncture for CSF sampling: will send Arboviral studies, tick studies, HSV, bacterial cultures, VDRL, cryptococcal antigen, Margie ink prep, gram stain, cell count/diff. cont. coverage w/ Vancomycin, Aztreonam, Acyclovir and Doxycycline pending CSF and blood cultures Qualifiers: Altered mental status type: delirium Qualified Code(s): R41.0 - Disorientation, unspecified (2) Rhabdomyolysis: Status: Acute Assessment and plan: secondary to prolonged muscle activity w/ flailing of arms and legs; ?seizure; will hydrate monitor urine output and follow serial BMP and CK levels Qualifiers: Rhabdomyolysis type: non-traumatic Qualified Code(s): M62.82 - Rhabdomyolysis (3) Rash and nonspecific skin eruption: Status: Acute Assessment and plan: rash preceded his acute neurologic change and therefore is a chronic condition; need to get skin biopsy [place] [facility]. (4) Leukocytosis: Status: Acute Assessment and plan: may be leukemoid reaction to the above problems (i.e. seizure, increased motor activity, infectious etiology). will continue broad spectrum antibiotics and antivirals until all cultures are negative. Will monitor his response and monitor acute inflammatory markers including his ESR, CRP and procalcitonin Qualifiers: Leukocytosis type: bandemia Qualified Code(s): D72.825 - Bandemia (5) Lactic acidosis: Status: Acute Assessment and plan: secondary to above. cont. iv hydration and antibiotics as above; monitor response (6) Essential hypertension: Status: Acute Assessment and plan: monitor his BP; avoid his losartan in setting of GRETCHEN (7) New onset type 2 diabetes mellitus: Status: Acute Assessment and plan: reportedly has been borderline diabetic but w/ recent A1c of 7.2% he is now in the diabetic category. Will monitor glucose q6hr and cover w/ SSI. (8) Acute kidney injury (nontraumatic): Status: Acute Assessment and plan: d/t rhabdomyolysis; aggressive hydration and monitor his urine output and BMP; consider U.S. however at this point he seems to be having brisk diuresis from the iv fluids given in the ER (urine output 200 to 250 mL/hr) (9) Hypernatremia: Status: Acute Assessment and plan: will give hypotonic saline and monitor urine output and urine electrolytes and serial bmp every 4 to 6 hrs. goal is gentle correction of his serum sodium by 0.5 meq/hr over the next 8 to 12hr and replace 1/3 of his free water deficit of that period and the rest over next 48 hr. (10) Hypokalemia: Status: Acute Assessment and plan: replace w/ parenteral supplementation (11) DVT prophylaxis: Status: Acute History of Present Illness History of Present Illness Chief Complaint: altered mental status Narrative: 45-year-old white male with a past medical history of chronic back pain treated by his PCP with baclofen, essential hypertension treated with losartan and chlorthalidone, hyperlipidemia treated with simvastatin and a history of depression treated with paroxetine. Patient was brought in earlier this morning by his parents because of acute delirium. Patient has been on baclofen for several years for his chronic back pain. He saw his primary care provider at [facility] couple days ago who abruptly took him off his baclofen. Since either Monday or Monday of this week his parents have noticed has been more depressed and acting confused. Yesterday he went to work at [employer] in [facility] but when he came home was complaining of headache and worsening back pain and took some of his baclofen but an unknown amount. He also had a couple of beers yesterday. His parents became concerned when they found him out in the yard yesterday banging his head against a tree. He has been having a headache for several days now along with worsening back pain but no associated fever or rigors. Did have some mild shortness of breath yesterday for which he used his nebulizer that he takes for asthma. Patient's parents report that he is also been purchasing multiple boxes of nicotine patches and smoking but otherwise no illicit drug use that they are aware of. Upon arrival to the emergency department patient initially had situational awareness but was noted to have spastic movements of his limbs but otherwise was showing avoidance of interaction with the ER staff. However within 15 minutes of arrival to the emergency department he became incoherent with altered mental status and was flailing about incessantly causing harm to himself in the emergency department and nursing staff. During that time he was complaining of headache and needing to urinate. Before he became incoherent he had been able to answer some questions for the ER staff and denied any illicit drug use. When he became incoherent more spastic and bounding on and off the bed and rolling around he required restraints and had to be sedated. Initially was given Ativan 4 mg IV push which had no effect and then he required ketamine 2 or 50 mg IV which provided good sedation initially but did not last long and he required RSI and intubation. He was treated with etomidate 20 mg IV and succinylcholine 100 mg IV and started on a propofol and midazolam drip after intubation in the emergency department. See ER notes for details. Note patient had a very similar presentation of acute delirium after withdrawal from baclofen and May 2018 was hospitalized from June 24, 2018 through June 28, 2018. At that time he was also noted to have a similar maculopapular rash along with the delirium and was initially intubated here at [facility] and sent to [facility] where he remained from June 24 through June 28, 2018. During that admission he also had rhabdomyolysis and had hyperammonemia. He had ammonia level 119 and a CK level 2000. Again his urine tox screen was at the time negative. He had a when further work-up including ruled out for syphilis and HIV and had a lumbar puncture. He has hypernatremia and rhabdomyolysis was treated with hypotonic fluids he was eventually extubated on June 26, 2018 and discharged on June 28, 2018. He was told to stop his baclofen and remain off it during that hospitalization he had a dermatology consult they did skin biopsy. He was supposed to follow-up with dermatology but never did so. CSF fluid did not show evidence for meningeal encephalitis at that time. Work-up today in the emergency department clued a CT scan of his head as well as chest x-ray routine labs and blood cultures. Labs demonstrate a leukocytosis of 27,000 with a left shift with 24,000 neutrophils. ESR is elevated at 17, CRP is elevated 2.96. Creatine kinase is 2900. Transaminases are mildly elevated at AST 69 and ALT 74 with normal alkaline phosphatase normal total bilirubin and a normal ammonia level of 27. Electrolytes demonstrated hyponatremia with a sodium of 150 and hypokalemia with a potassium of 3.2 with an anion gap of 17.5 and elevated BUN and creatinine of 47 and 1.8. CBC shows no anemia and no macrocytosis. Platelet count is normal at 310,000. Lactate is elevated at 4.3. Troponin is normal at less than 0.05 and TSH is normal at 0.67. Chest x-ray showed mild cardiomegaly and mild perihilar infiltrates Bones appear demineralized and there is numerous remote appearing left rib fracture deformities. NG was seen in the proximal stomach and endotracheal tube was 6 cm above the oanh. CT showed no acute intracranial process or trauma. ECG demonstrates normal sinus rhythm [address] or T wave changes. Treatment emergency department included 3 L of saline along with broad-spectrum antibiotics and antiviral medications. He was given vancomycin 2 g, acyclovir 1 g, aztreonam 2 g, and doxycycline 100 mg. Tick panel was sent off. [facility] Medical History (Updated 03/27/21 @ 13:27 by Kendell Hoover) Depression Essential hypertension History of chronic back pain Hyperlipidemia New onset type 2 diabetes mellitus Social History Smoking/Tobacco Use Status: Current every day Smoking risk assessment performed?: Yes Drug use: Never Do you feel safe at home: Yes Do you feel safe in your relationship?: Yes Meds Allergies and Home Medications Allergies Allergy/AdvReac Type Severity Reaction Status Date / Time Penicillins Allergy Unknown Unverified 06/24/18 19:47 Sulfa (Sulfonamide AdvReac Intermediate vomitting Unverified 06/24/18 19:47 Antibiotics) Home Medications Medication Instructions Recorded Confirmed Type losartan 100 mg PO DAILY 12/23/13 06/24/18 History paroxetine HCl 40 mg PO DAILY 12/23/13 06/24/18 History simvastatin 40 mg PO HS 12/23/13 06/24/18 History baclofen 20 mg PO TID PRN 06/24/18 06/24/18 History chlorthalidone 25 mg PO DAILY 06/24/18 06/24/18 History Exam Narrative Exam Narrative: Obese male who is intubated on mechanical ventilator but breathing above the set ventilator rate. HEENT is remarkable for number of scratches over his head but no deep wounds. Pupils are 3 to 4 mm in diameter but reactive to direct light. There is no nystagmus. TM intact w/out redness or bulging; nares moist w/o epistaxis There is a crusted mucosal laceration along the corner of the right side of his mouth. Mucous membranes are moist; I could not get good look at his oropharynx d/t the ET and OG tubes Neck: supple, no rigidity; no adenopathy nor thyromegaly; normal carotid pulses Lungs: clear to ausculatation; no rhonchi or wheezing Heart: heart tones are distant but regular w/out murmur or rub; no heave or gallops Abdomen: obeses, soft w/ faint bowel sounds; no rigidity or distension and no palpable hepatospleenomegaly Extremities: no cyanosis or edema, normal pulses Skin: trunk w/ diffuse erythema and multiple focal maculopapular elliptical to circular about 1 cm in size,rash over abdomen to groin and over his lower back; he has keratosis over his legs; multiple tattoos Neuro: sedated on Propofol and Midazolam drip but he withdraws to noxious stimuli in all 4 extremities and grimaces to noxious stimulation; pupils small about 3 mm but reactive to direct light Results Labs Result diagrams: 03/27/21 05:15 03/27/21 05:15 Labs: Laboratory Results - last 24 hr 03/27/21 03/27/21 03/27/21 05:10 05:15 05:15 WBC RBC Hgb Hct MCV MCH MCHC RDW Plt Count MPV Immature Gran % Neutrophils % Band Neutrophils % Lymphocytes % Monocytes % Eosinophils % Basophils % Nucleated RBC % Absolute Neutrophils Absolute Lymphocytes Absolute Monocytes Absolute Eosinophils Absolute Basophils RBC Morphology ESR ABG Sample Site ABG pH ABG pCO2 ABG pO2 ABG HCO3 ABG Total CO2 ABG O2 Saturation ABG Base Excess VBG pH 7.35 VBG pCO2 46 VBG pO2 47 VBG HCO3 25 VBG Total CO2 23 L VBG O2 Saturation 78 VBG Base Excess -1 VBG Lactate Oxygen Liter Flow FiO2 Sodium Potassium Chloride Carbon Dioxide Anion Gap BUN Creatinine Estimated GFR/1.73 m2 Glucose Calcium Total Bilirubin AST ALT Alkaline Phosphatase Ammonia 27 Creatine Kinase Troponin I C-Reactive Protein Total Protein Albumin Procalcitonin TSH Urine Color Urine Clarity Urine pH Ur Specific Langford Urine Protein Urine Ketones Urine Blood Urine Nitrite Urine Bilirubin Urine Urobilinogen Ur Leukocyte Esterase Urine RBC Urine WBC Ur Epithelial Cells Urine Crystals Urine Bacteria Urine Casts Urine Mucus Ur Culture Indicated? Urine Glucose Salicylates 3.9 Urine Opiates Screen Urine Methadone Screen Acetaminophen < 2 Ur Barbiturates Screen Ur Tricyclics Screen Ur Amphetamines Screen U Benzodiazepines Scrn Urine Cocaine Screen Ur THC Screen Ethyl Alcohol COVID-19 Source SARS-CoV-2 (PCR) 03/27/21 03/27/21 03/27/21 05:15 05:15 05:15 WBC 27.16 H* RBC 4.39 Hgb 13.4 L Hct 39.8 L MCV 90.7 MCH 30.5 MCHC 33.7 RDW 13.2 Plt Count 310 MPV 11.5 H Immature Gran % 0.0 Neutrophils % 91.0 Band Neutrophils % 1 Lymphocytes % 4.0 Monocytes % 4.0 Eosinophils % 0.0 Basophils % 0.0 Nucleated RBC % 0 Absolute Neutrophils 24.99 H Absolute Lymphocytes 1.09 L Absolute Monocytes 1.09 H Absolute Eosinophils 0.00 Absolute Basophils 0.00 RBC Morphology Normal ESR ABG Sample Site ABG pH ABG pCO2 ABG pO2 ABG HCO3 ABG Total CO2 ABG O2 Saturation ABG Base Excess VBG pH VBG pCO2 VBG pO2 VBG HCO3 VBG Total CO2 VBG O2 Saturation VBG Base Excess VBG Lactate 4.3 H* Oxygen Liter Flow FiO2 Sodium 150 H Potassium 3.2 L Chloride 107 Carbon Dioxide 25.5 Anion Gap 17.5 H BUN 47 H Creatinine 1.8 H Estimated GFR/1.73 m2 41.19 Glucose 160 H Calcium 9.5 Total Bilirubin 1.0 AST 69 H ALT 74 H Alkaline Phosphatase 86 Ammonia Creatine Kinase Troponin I < 0.05 C-Reactive Protein Total Protein 8.3 H Albumin 4.4 Procalcitonin TSH 0.67 Urine Color Urine Clarity Urine pH Ur Specific Langford Urine Protein Urine Ketones Urine Blood Urine Nitrite Urine Bilirubin Urine Urobilinogen Ur Leukocyte Esterase Urine RBC Urine WBC Ur Epithelial Cells Urine Crystals Urine Bacteria Urine Casts Urine Mucus Ur Culture Indicated? Urine Glucose Salicylates Urine Opiates Screen Urine Methadone Screen Acetaminophen Ur Barbiturates Screen Ur Tricyclics Screen Ur Amphetamines Screen U Benzodiazepines Scrn Urine Cocaine Screen Ur THC Screen Ethyl Alcohol < 3.0 COVID-19 Source SARS-CoV-2 (PCR) 03/27/21 03/27/21 03/27/21 05:15 05:15 05:15 WBC RBC Hgb Hct MCV MCH MCHC RDW Plt Count MPV Immature Gran % Neutrophils % Band Neutrophils % Lymphocytes % Monocytes % Eosinophils % Basophils % Nucleated RBC % Absolute Neutrophils Absolute Lymphocytes Absolute Monocytes Absolute Eosinophils Absolute Basophils RBC Morphology ESR 17 H ABG Sample Site ABG pH ABG pCO2 ABG pO2 ABG HCO3 ABG Total CO2 ABG O2 Saturation ABG Base Excess VBG pH VBG pCO2 VBG pO2 VBG HCO3 VBG Total CO2 VBG O2 Saturation VBG Base Excess VBG Lactate Oxygen Liter Flow FiO2 Sodium Potassium Chloride Carbon Dioxide Anion Gap BUN Creatinine Estimated GFR/1.73 m2 Glucose Calcium Total Bilirubin AST ALT Alkaline Phosphatase Ammonia Creatine Kinase 2962 H Troponin I C-Reactive Protein 2.96 H Total Protein Albumin Procalcitonin TSH Urine Color Urine Clarity Urine pH Ur Specific Lang[place] Urine Protein Urine Ketones Urine Blood Urine Nitrite Urine Bilirubin Urine Urobilinogen Ur Leukocyte Esterase Urine RBC Urine WBC Ur Epithelial Cells Urine Crystals Urine Bacteria Urine Casts Urine Mucus Ur Culture Indicated? Urine Glucose Salicylates Urine Opiates Screen Urine Methadone Screen Acetaminophen Ur Barbiturates Screen Ur Tricyclics Screen Ur Amphetamines Screen U Benzodiazepines Scrn Urine Cocaine Screen Ur THC Screen Ethyl Alcohol COVID-19 Source SARS-CoV-2 (PCR) 03/27/21 03/27/21 03/27/21 05:15 06:15 06:15 WBC RBC Hgb Hct MCV MCH MCHC RDW Plt Count MPV Immature Gran % Neutrophils % Band Neutrophils % Lymphocytes % Monocytes % Eosinophils % Basophils % Nucleated RBC % Absolute Neutrophils Absolute Lymphocytes Absolute Monocytes Absolute Eosinophils Absolute Basophils RBC Morphology ESR ABG Sample Site ABG pH ABG pCO2 ABG pO2 ABG HCO3 ABG Total CO2 ABG O2 Saturation ABG Base Excess VBG pH VBG pCO2 VBG pO2 VBG HCO3 VBG Total CO2 VBG O2 Saturation VBG Base Excess VBG Lactate Oxygen Liter Flow FiO2 Sodium Potassium Chloride Carbon Dioxide Anion Gap BUN Creatinine Estimated GFR/1.73 m2 Glucose Calcium Total Bilirubin AST ALT Alkaline Phosphatase Ammonia Creatine Kinase Troponin I C-Reactive Protein Total Protein Albumin Procalcitonin 0.1 TSH Urine Color Yellow Urine Clarity Sl Cloudy Urine pH 5.5 Ur Specific Langford >= 1.030 H Urine Protein 30 H Urine Ketones Trace H Urine Blood Small H Urine Nitrite Negative Urine Bilirubin Negative Urine Urobilinogen 0.2 Ur Leukocyte Esterase Negative Urine RBC 3-5 H Urine WBC 0-2 Ur Epithelial Cells Few Urine Crystals Negative Urine Bacteria Few Urine Casts 3-5 Hyaline Urine Mucus Negative Ur Culture Indicated? No Urine Glucose Negative Salicylates Urine Opiates Screen Negative Urine Methadone Screen Negative Acetaminophen Ur Barbiturates Screen Negative Ur Tricyclics Screen Negative Ur Amphetamines Screen Negative U Benzodiazepines Scrn Negative Urine Cocaine Screen Negative Ur THC Screen Negative Ethyl Alcohol COVID-19 Source SARS-CoV-2 (PCR) 03/27/21 03/27/21 06:28 07:00 WBC RBC Hgb Hct MCV MCH MCHC RDW Plt Count MPV Immature Gran % Neutrophils % Band Neutrophils % Lymphocytes % Monocytes % Eosinophils % Basophils % Nucleated RBC % Absolute Neutrophils Absolute Lymphocytes Absolute Monocytes Absolute Eosinophils Absolute Basophils RBC Morphology ESR ABG Sample Site Left Radial ABG pH 7.37 ABG pCO2 45 ABG pO2 132 H ABG HCO3 26 ABG Total CO2 23 ABG O2 Saturation 99 H ABG Base Excess 0 VBG pH VBG pCO2 VBG pO2 VBG HCO3 VBG Total CO2 VBG O2 Saturation VBG Base Excess VBG Lactate Oxygen Liter Flow 510/16/50+5 FiO2 50 Sodium Potassium Chloride Carbon Dioxide Anion Gap BUN Creatinine Estimated GFR/1.73 m2 Glucose Calcium Total Bilirubin AST ALT Alkaline Phosphatase Ammonia Creatine Kinase Troponin I C-Reactive Protein Total Protein Albumin Procalcitonin TSH Urine Color Urine Clarity Urine pH Ur Specific [place] Urine Protein Urine Ketones Urine Blood Urine Nitrite Urine Bilirubin Urine Urobilinogen Ur Leukocyte Esterase Urine RBC Urine WBC Ur Epithelial Cells Urine Crystals Urine Bacteria Urine Casts Urine Mucus Ur Culture Indicated? Urine Glucose Salicylates Urine Opiates Screen Urine Methadone Screen Acetaminophen Ur Barbiturates Screen Ur Tricyclics Screen Ur Amphetamines Screen U Benzodiazepines Scrn Urine Cocaine Screen Ur THC Screen Ethyl Alcohol COVID-19 Source NASOPHARYX SARS-CoV-2 (PCR) Negative Last Vital Signs Temp 35.3 C L 03/27/21 08:50 Pulse 75 03/27/21 10:02 Resp 15 03/27/21 10:30 BP 129/70 03/27/21 10:02 Pulse Ox 98 03/27/21 10:30
[2021-03-27] MEDS: POTASSIUM CHLORIDE/0.45% NACL 1,000 ML 110 MEQ IV ×2 (12:05→21:06)
--- NOTE | 2021-03-27 12:46 | W.ANESPROC ---
Lumbar Puncture Date Performed: 03/27/21 Procedure Time: 15:00 Requesting Provider: Kendell Hoover Procedure Location: Intensive Care Unit Standard Monitors Applied: ECG, Blood Pressure, SpO2, ETCO2 and See EMR for corresponding vital signs Patient Position: Other Timeout Performed: Yes Sedation Given (Indicate Dose Given): No Sedation given Patient Mental Status: Sedated or Ventilated without meaningful communication Sterility: Hand Hygiene, Surgical Cap, Surgical Mask, Sterile Gloves, Sterile Drape/Sheet and Chlorhexidine Placement Site: L3-L4 Interspace Spinal Needle Type: Quincke 22 Gauge Needle Length: 3.5 Inch Lumbar Puncture Procedure: Site Prepped, Sterile Drape Placed, 1% Lidocaine to skin and subcutaneous tissue with 25G needle, Positive CSF Flow, CSF Specimen placed into Tubes in Sequential Order and Specimen Labeled, Sent to Lab Ultrasound: Used to faiza site Opening CSF Pressure (cmH2O): 25 Paresthesia: None Number of Previous Attempts by Other Providers: 0 Number of Attempts (See previous attempts in note section): 4 Procedure Tolerated: No Complications Procedure Outcome: Successful Procedure Comment:: 45 yo male in the ICU intubated and sedated with elevated WBC, increasing neck/back pain recently, and altered mental status. Requested to preform LP. History and medications reviewed and no contraindication noted. Consent obtained from family via hospitalist. Pt was positioned right lateral, multiple attempts at L4-5, L2,3, L3-4 without success despite US marking. Pt was given a break. Pt was then placed right lateral, marked out with US and first attempt at L3-4. unable to obtain full CSF samples. Extremely slow CSF flow after first tube/opening pressure. CSF cloudy and pink/orange tinged in first tube, started to clear on the second, but started to get slithy blood tinged on tubes 3 and 4 ? due to needle position change due to very slow flow. Lab aware of minimal CSF in tubes. Performed By: Eugene Westbrook
[2021-03-27 13:22] LABS: INR 1.1 (0.9-1.1); PTT Activated 25.5 sec (21.0-27.5); Prothrombin Time 11.2 sec (9.3-11.0)
[2021-03-27] MEDS: levETIRAcetam 1,000 MG in Normal Saline 100 ML 400 MG IVPB (13:25)
[2021-03-27 13:34] LABS: Creatine Kinase 2780 U/L (39-308); Troponin I < 0.05 ng/mL (<0.06)
[2021-03-27 13:35] LABS: BUN 38 mg/dL (7-18); CREATININE 1.1 mg/dL (0.70-1.30); Calcium 8.5 mg/dL (8.5-10.1); Glucose 121 mg/dL (74-106)
[2021-03-27 13:36] LABS: Anion Gap 15.3 mmol/L (3-11); CO2 24.7 mmol/L (21.0-32.0); Chloride 110 mmol/L (98-107); Sodium 150 mmol/L (136-145)
[2021-03-27 13:38] LABS: Potassium 2.9 mmol/L (3.5-5.1)
[2021-03-27 13:48] LABS: POTASSIUM,URINE RANDOM 47 mmol/L; Sodium, Urine 89 mmol/L
[2021-03-27 14:58] LABS: Magnesium 2.9 mg/dL (1.8-2.4)
[2021-03-27 16:01] LABS: Glucose (CSF) 106 mg/dL (40-70)
[2021-03-27 16:03] LABS: RBC 1560 /mm3 (0-5); Tube # 3; WBC 7 /uL (0-5); Xanthochromia Present
[2021-03-27 16:04] LABS: Differential CSF: Performed
[2021-03-27 16:24] LABS: Lymphocytes CSF 29 % (40-80); Monocyte/Macrophage CSF 25 % (15-45); Neutrophils CSF 46 % (0-6)
[2021-03-27 16:30] LABS: Total Protein (CSF) > 1000 mg/dL (15-45)
[2021-03-27 19:06] LABS: Anion Gap 11.5 mmol/L (3-11); BUN 33 mg/dL (7-18); CO2 26.5 mmol/L (21.0-32.0); CREATININE 0.9 mg/dL (0.70-1.30); Calcium 8.4 mg/dL (8.5-10.1); Chloride 111 mmol/L (98-107); Glucose 129 mg/dL (74-106); Sodium 149 mmol/L (136-145)
[2021-03-27] MEDS: MIDAZOLAM 50 MG in Normal Saline 90 ML 47.2 MG IV (20:00)
[2021-03-27] MEDS: VANCOMYCIN/WATER (PEG) 1 GM/200 ML BAG IV (20:44)
[2021-03-27 22:25] LABS: Anion Gap 10.8 mmol/L (3-11); BUN 28 mg/dL (7-18); CO2 27.2 mmol/L (21.0-32.0); CREATININE 0.8 mg/dL (0.70-1.30); Calcium 8.1 mg/dL (8.5-10.1); Chloride 110 mmol/L (98-107); Glucose 135 mg/dL (74-106); Sodium 148 mmol/L (136-145)
[2021-03-27 22:27] LABS: Potassium 2.7 mmol/L (3.5-5.1)
[2021-03-27] MEDS: Normal Saline Flush 10 ML SYR IVP (22:47)
[2021-03-28] VITALS (88 sets, daily range): BP systolic 103–139; BP diastolic 36–78; PULSE 76–100; RESP 5–37; TEMP 36.9–38.2; O2SAT 85–99
[2021-03-28] MEDS: PROPOFOL 1,000 MG/100 ML BTL 35.52 MG IVPB ×2 (00:02→10:43)
[2021-03-28] MEDS: POTASSIUM CHLORIDE 20 MEQ/100 ML BAG 50 MEQ IVPB ×6 (00:25→16:43)
[2021-03-28 00:31] LABS: HCT 35.9 % (40.0-50.0); HGB 12.2 g/dL (13.5-17.5)
--- NOTE | 2021-03-28 01:40 | NUR.NOTE ---
Noticed urine leaking around keenan catheter, changed catheter tube to 16fr, good urine collection now post tube change. Nursing Note:
[2021-03-28 02:20] LABS: Anion Gap 11.2 mmol/L (3-11); BUN 24 mg/dL (7-18); CO2 27.8 mmol/L (21.0-32.0); CREATININE 0.8 mg/dL (0.70-1.30); Calcium 7.9 mg/dL (8.5-10.1); Chloride 110 mmol/L (98-107); Glucose 133 mg/dL (74-106); Sodium 149 mmol/L (136-145)
[2021-03-28 02:25] LABS: Potassium 2.8 mmol/L (3.5-5.1)
[2021-03-28] MEDS: levETIRAcetam 500 MG in Normal Saline 100 ML 400 MG IVPB ×2 (02:55→13:46)
[2021-03-28] MEDS: PROPOFOL 1,000 MG/100 ML BTL 42.624 MG IVPB (03:05)
[2021-03-28] MEDS: MIDAZOLAM 50 MG in Normal Saline 90 ML 47.2 MG IV ×6 (03:10→09:56)
[2021-03-28] MEDS: PROPOFOL 1,000 MG/100 ML BTL 56.832 MG IVPB ×3 (05:40→08:44)
[2021-03-28] MEDS: Normal Saline 100 ML 19 ML (05:55)
[2021-03-28] MEDS: AZTREONAM 2,000 MG in Normal Saline 100 ML 200 MG IVPB ×3 (06:03→21:10)
[2021-03-28] MEDS: POTASSIUM CHLORIDE/0.45% NACL 1,000 ML 110 MEQ IV ×2 (06:03→20:42)
[2021-03-28] MEDS: DOXYCYCLINE 100 MG in Normal Saline 100 ML IVPB ×2 (06:44→18:02)
--- NOTE | 2021-03-28 06:45 | DI.RAD_ITS ---
Exam(s) XR PORTABLE CHEST AP EXAM: XR PORTABLE CHEST AP CLINICAL HISTORY: encephalopathy TECHNIQUE: COMPARISON: CR,XR XR PORTABLE CHEST AP POST LINE from 03/27/2021 FINDINGS: Portable chest film at 0900 hours. Endotracheal tube is placed in good position. Enteric tube is al so placed. There is increasing radiodensity overlying the left lung base in comparison with examinat ion obtained March 27. Increasing radiodensity also noted in right lung base. IMPRESSION: Findings suggesting new atelectasis and/or consolidation of both lung bases, left greater than right. Appropriate follow-up studies requested. RADIATION DOSE DELIVERED: Total DLP
[2021-03-28 06:49] LABS: Abs Immature Grans 0.05 10^3/uL (0.0-0.06); Absolute Basophil Count 0.05 10^3/uL (0.0-0.2); Absolute Monocyte Count 0.89 10^3/uL (0.1-0.8); Basophils % 0.4; Eosinophils % 0.7; HCT 35.1 % (40.0-50.0); HGB 11.5 g/dL (13.5-17.5); Immature Grans % 0.4; Lymphocytes % 13.5; MCH 30.5 pg (27.0-33.0); MCHC 32.8 % (32.0-36.0); MCV 93.1 fL (80-95); MPV 11.1 fL (8.0-11.0); Monocytes % 6.5; Neutrophils % 78.5; Nucleated RBC 0 %; Platelet Count 247 10^3/uL (130-400); RBC 3.77 10^6/uL (4.36-5.78); RDW 13.6 % (11.8-14.1); RDW-SD 46.5 fL; WBC 13.66 10^3/uL (4.4-10.8)
[2021-03-28 06:55] LABS: ESR 15 mm/hr (0-15)
[2021-03-28 06:57] LABS: Absolute Lymphocyte Count 1.84 10^3/uL (1.2-3.4); Absolute Neutrophil Count 10.72 10^3/uL (1.2-6.7)
[2021-03-28] MEDS: fentaNYL 100 MCG/2 ML VIAL IVP (07:21)
[2021-03-28 07:29] LABS: ALT 52 U/L (16-63); AST 35 U/L (15-37); Albumin 3.4 g/dL (3.4-5.0); Alkaline Phosphatase 70 U/L (46-116); Bilirubin, Total 0.4 mg/dL (0.2-1.0); C-Reactive Protein 5.34 mg/dL (0.0-0.3); CREATININE 0.8 mg/dL (0.70-1.30); Chloride 110 mmol/L (98-107); Total Protein 6.6 g/dL (6.4-8.2)
[2021-03-28 07:38] LABS: BE 6 mmol/L (-2-3); HCO3 30 mmol/L (22-26); pCO2 43 mmHg (35-45); pH 7.45 (7.35-7.45); pO2 59 mmHg (80-105); sO2 92 % (95-98); tCO2 27 mmol/L (23-27)
[2021-03-28 07:40] LABS: FIO2 26 %; Site Right Radial
[2021-03-28 07:56] LABS: BUN 20 mg/dL (7-18); Glucose 132 mg/dL (74-106); Potassium 2.6 mmol/L (3.5-5.1)
[2021-03-28 07:57] LABS: Anion Gap 7.8 mmol/L (3-11); CO2 30.2 mmol/L (21.0-32.0); Creatine Kinase 1098 U/L (39-308); Sodium 148 mmol/L (136-145)
[2021-03-28] MEDS: Normal Saline Flush 10 ML SYR IVP ×3 (08:04→21:11)
[2021-03-28] MEDS: fentaNYL 1,000 MCG in Normal Saline 80 ML 12.03 MCG IV (09:39)
[2021-03-28] MEDS: VANCOMYCIN/WATER (PEG) 1 GM/200 ML BAG IV (10:18)
[2021-03-28 10:54] LABS: Potassium 2.8 mmol/L (3.5-5.1)
--- NOTE | 2021-03-28 11:15 | DI.VRAD_ITS ---
PROCEDURE INFORMATION: Exam: XR Chest Exam date and time: 03/28/2021 6:47 AM Age: 45 years old Clinical indication: Other: Pneumonia; Fever TECHNIQUE: Imaging protocol: XR of the chest. Views: 1 view. COMPARISON: CR XR PORTABLE CHEST AP 03/27/2021 5:39 AM FINDINGS: Tubes, catheters and devices: An endotracheal tube and nasogastric tube projects in satisfactory position. Lungs: There is new basilar opacity in the periphery of the left base which may represent a pneumonia. Subsegmental atelectasis is present in the right base. Pleural spaces: Unremarkable. No pleural effusion. No pneumothorax. Heart/Mediastinum: Unremarkable. No cardiomegaly. Bones/joints: Unremarkable. IMPRESSION: There is new opacification of the periphery of the left base which is consistent with left basilar pneumonia. Dictated and Authenticated by: Acosta Cruz MD. Ordering:[facility] Kiko Rdz MD
--- NOTE | 2021-03-28 11:19 | PGE_ITS ---
Date of Service Date of service: 03/28/21 Time of Service: 11:19 Assessment and Plan Assessment and plan (1) Altered mental status: Status: Acute Assessment and plan: ddx: seizure, acute metabolic encephalopathy d/t baclofen withdrawal, meningoencephalitis, delirium d/t sepsis; toxic encephalopathy d/t illicit drug use (note UDS was negative for drugs of abuse and parents state no known drug use other than rare alcohol use), infectious encephalopathy d/t viral meningoencephalitis or d/t tick borne illness spinal tap was traumatic tap yesterday, took anesthesia multiple attempts. repeat CT head unremarkable. Still unclear as to etiology but suspect drug induced or drug withdrawal encephalopathy complicated by respiratory failure; aspiraton pneumonitis; ?seizure. will check EEG tomorrow. Still awaiting rest of CSF studies and tick panel and autoimmune studies. Qualifiers: Altered mental status type: delirium Qualified Code(s): R41.0 - Disorientation, unspecified (2) Rhabdomyolysis: Status: Acute Assessment and plan: secondary to prolonged muscle activity w/ flailing of arms and legs; ?seizure; continue hydration and monitoring of urine outputs. CK better today at 1098. Qualifiers: Rhabdomyolysis type: non-traumatic Qualified Code(s): M62.82 - Rhabdomyolysis (3) Rash and nonspecific skin eruption: Status: Acute Assessment and plan: rash preceded his acute neurologic change and therefore is a chronic condition; need to get skin biopsy results from [facility] admission 06/24/2018. (4) Leukocytosis: Status: Acute Assessment and plan: WBC down to 13,000 from 27,000 yesterday. Blood cultures and CSF cultures no growth so far. He has evidence for pneumonia, probably aspiration. Will add Flagyl. Qualifiers: Leukocytosis type: bandemia Qualified Code(s): D72.825 - Bandemia (5) Lactic acidosis: Status: Resolved Assessment and plan: resolved last night w/ fluids and antibiotics (6) Essential hypertension: Status: Acute Assessment and plan: monitor his BP; avoid his losartan in setting of GRETCHEN (7) New onset type 2 diabetes mellitus: Status: Acute Assessment and plan: reportedly has been borderline diabetic but w/ recent A1c of 7.2% he is now in the diabetic category. Will monitor glucose q6hr and cover w/ SSI. (8) Acute kidney injury (nontraumatic): Status: Acute Assessment and plan: d/t rhabdomyolysis; aggressive hydration and monitor his urine output and BMP; improved, now creatinine is 0.8 and BUN 20; continue hydration for rhabdomyolysis (9) Hypernatremia: Status: Acute Assessment and plan: sodium improving and slowly correcting; now down to 148 which is acceptable. cont. hypotonic saline w/ potassium supplementation (10) Hypokalemia: Status: Acute Assessment and plan: replace w/ parenteral supplementation and recheck values. phosphorous is low. I have asked pharmacy to check into giving potassium phosphate. I will consult nutritional services tomorrow. If he does not get extubated tomorrow then he ought to be started on enteral feedings via NG. (11) DVT prophylaxis: Status: Acute Assessment and plan: patient is on TEDS and SCD d/t LP yesterday. I will start lovenox tomorrow as his LP was later in the day yesterday. Subjective Subjective Interval history since last seen: patient remains sedated and intubated and on mechanical ventilation (d#2). He is hemodynamically stable. vent has been weaned down to AC 18, TV 360 mL, FiO2 26%, PEEP 5 cm. Patient is breathing mostly at the vent rate or slightly above (RR 19). Peak airway pressure a low at 12 cm. ABG are acceptable ( pH 7.45, pO2 59, pCO2 43 SaO2 92%). CXR demonstrates LLL infiltrate and subsegemental atelectasis right lung base. He is currently on Vancomycin, Aztreonam, Doxycycline and Acyclovir. He also remains on Keppra for possible seizures. Repeat CT head showed no acute abnormalities. I think in light of his possible aspiration Metronidazole should be added. I think that if his tick panel is negative then we can dc the doxycycline. also if his HSV comes back negative then acyclovir can be dc'ed. CSF culture so far shows no growth and gram stain showed a few WBC but no bacteria. His CSF for bacterial antigen and adenovirus is pending as well as his tick panel. Exam Narrative Exam Narrative: Sedated obese white male HEENT: some dried blood at corner of mouth w/ scabbed laceration over right corner of mouth; PERRL 4 mm Neck: supple, normal carotid pulses, no JVD Lungs: left basilar rales and rhonchi; upper villarreal clear; right side better aeration Heart: regular rate and rhythm; no murmur or thrill or rub Abdomen: obese; soft, nondistended; normal bowel sounds keenan draining yellow urine w/ some mucous strands Extremities: no pitting edema; no cyanosis; warm w/ normal pedal pulses Neuro: heavily sedated; nursing to perform sedation vacation to assess neuro status; he does withdraw to painful stimulation Skin: rash is less intense but still w/ maculopapular w/ some areas that appear to be scaley or even scabbed over Objective Last Vital Signs Temp 37 C 03/28/21 04:09 Pulse 94 H 03/28/21 11:01 Resp 18 03/28/21 11:01 BP 128/70 03/28/21 11:01 Pulse Ox 99 03/28/21 11:01 Laboratory Results - last 24 hr 03/27/21 03/27/21 03/27/21 05:15 12:20 13:00 WBC RBC Hgb Hct MCV MCH MCHC RDW Plt Count MPV Immature Gran % Neutrophils % Lymphocytes % Monocytes % Eosinophils % Basophils % Nucleated RBC % Absolute Neutrophils Absolute Lymphocytes Absolute Monocytes Absolute Eosinophils Absolute Basophils Xanthochromia ESR PT INR APTT ABG Sample Site ABG pH ABG pCO2 ABG pO2 ABG HCO3 ABG Total CO2 ABG O2 Saturation ABG Base Excess VBG Lactate Oxygen Liter Flow FiO2 Sodium 150 H Potassium 2.9 L Chloride 110 H Carbon Dioxide 24.7 Anion Gap 15.3 H BUN 38 H D Creatinine 1.1 D Estimated GFR/1.73 m2 >= 60.00 Glucose 121 H Calcium 8.5 Magnesium 2.9 H Total Bilirubin AST ALT Alkaline Phosphatase Creatine Kinase Troponin I C-Reactive Protein Total Protein Albumin Ur Random Sodium 89 Ur Random Potassium 47 CSF Tube Number CSF Color CSF Clarity CSF WBC CSF RBC CSF RBC (1) CSF Neutrophils % CSF Lymphocytes % CSF Monos/Macrophage % CSF Diff Comment CSF Glucose CSF Total Protein A.phagocytophil DNA PCR Cancelled B. divergens/MO-1 PCR Cancelled Babesia duncani (PCR) Cancelled Babesia microti DNA PCR Cancelled Borrelia (PCR) Cancelled Lyme Disease Antibody Cancelled E.chaffeensis DNA (PCR) Cancelled E.ewingii/canis DNA PCR Cancelled E. muris-like DNA (PCR) Cancelled AFB Source AFB Culture Final Res M. Tuberculosis PCR AFB Smear (Ref Lab) 03/27/21 03/27/21 03/27/21 13:00 13:00 13:00 WBC RBC Hgb Hct MCV MCH MCHC RDW Plt Count MPV Immature Gran % Neutrophils % Lymphocytes % Monocytes % Eosinophils % Basophils % Nucleated RBC % Absolute Neutrophils Absolute Lymphocytes Absolute Monocytes Absolute Eosinophils Absolute Basophils Xanthochromia ESR PT 11.2 H INR 1.1 APTT 25.5 ABG Sample Site ABG pH ABG pCO2 ABG pO2 ABG HCO3 ABG Total CO2 ABG O2 Saturation ABG Base Excess VBG Lactate Oxygen Liter Flow FiO2 Sodium Potassium Chloride Carbon Dioxide Anion Gap BUN Creatinine Estimated GFR/1.73 m2 Glucose Calcium Magnesium Total Bilirubin AST ALT Alkaline Phosphatase Creatine Kinase 2780 H Troponin I < 0.05 C-Reactive Protein Total Protein Albumin Ur Random Sodium Ur Random Potassium CSF Tube Number CSF Color CSF Clarity CSF WBC CSF RBC CSF RBC (1) CSF Neutrophils % CSF Lymphocytes % CSF Monos/Macrophage % CSF Diff Comment CSF Glucose CSF Total Protein A.phagocytophil DNA PCR B. divergens/MO-1 PCR Babesia duncani (PCR) Babesia microti DNA PCR Borrelia (PCR) Lyme Disease Antibody E.chaffeensis DNA (PCR) E.ewingii/canis DNA PCR E. muris-like DNA (PCR) AFB Source AFB Culture Final Res M. Tuberculosis PCR AFB Smear (Ref Lab) 03/27/21 03/27/21 03/27/21 15:00 15:00 15:26 WBC RBC Hgb Hct MCV MCH MCHC RDW Plt Count MPV Immature Gran % Neutrophils % Lymphocytes % Monocytes % Eosinophils % Basophils % Nucleated RBC % Absolute Neutrophils Absolute Lymphocytes Absolute Monocytes Absolute Eosinophils Absolute Basophils Xanthochromia Present ESR PT INR APTT ABG Sample Site ABG pH ABG pCO2 ABG pO2 ABG HCO3 ABG Total CO2 ABG O2 Saturation ABG Base Excess VBG Lactate Oxygen Liter Flow FiO2 Sodium Potassium Chloride Carbon Dioxide Anion Gap BUN Creatinine Estimated GFR/1.73 m2 Glucose Calcium Magnesium Total Bilirubin AST ALT Alkaline Phosphatase Creatine Kinase Troponin I C-Reactive Protein Total Protein Albumin Ur Random Sodium Ur Random Potassium CSF Tube Number 3 CSF Color [place] CSF Clarity Turbid/Hazy CSF WBC 7 H CSF RBC 1560 H CSF RBC (1) CSF Neutrophils % 46 H CSF Lymphocytes % 29 L CSF Monos/Macrophage % 25 CSF Diff Comment Performed CSF Glucose 106 H CSF Total Protein > 1000 H A.phagocytophil DNA PCR B. divergens/MO-1 PCR Babesia duncani (PCR) Babesia microti DNA PCR Borrelia (PCR) Lyme Disease Antibody E.chaffeensis DNA (PCR) E.ewingii/canis DNA PCR E. muris-like DNA (PCR) AFB Source Cancelled AFB Culture Final Res Cancelled M. Tuberculosis PCR Cancelled AFB Smear (Ref Lab) Cancelled 03/27/21 03/27/21 03/27/21 18:45 18:45 22:10 WBC RBC Hgb Hct MCV MCH MCHC RDW Plt Count MPV Immature Gran % Neutrophils % Lymphocytes % Monocytes % Eosinophils % Basophils % Nucleated RBC % Absolute Neutrophils Absolute Lymphocytes Absolute Monocytes Absolute Eosinophils Absolute Basophils Xanthochromia ESR PT INR APTT ABG Sample Site ABG pH ABG pCO2 ABG pO2 ABG HCO3 ABG Total CO2 ABG O2 Saturation ABG Base Excess VBG Lactate 1.0 Oxygen Liter Flow FiO2 Sodium 149 H 148 H Potassium 3.0 L 2.7 L* Chloride 111 H 110 H Carbon Dioxide 26.5 27.2 Anion Gap 11.5 H 10.8 BUN 33 H 28 H Creatinine 0.9 0.8 Estimated GFR/1.73 m2 >= 60.00 >= 60.00 Glucose 129 H 135 H Calcium 8.4 L 8.1 L Magnesium Total Bilirubin AST ALT Alkaline Phosphatase Creatine Kinase Troponin I C-Reactive Protein Total Protein Albumin Ur Random Sodium Ur Random Potassium CSF Tube Number CSF Color CSF Clarity CSF WBC CSF RBC CSF RBC (1) CSF Neutrophils % CSF Lymphocytes % CSF Monos/Macrophage % CSF Diff Comment CSF Glucose CSF Total Protein A.phagocytophil DNA PCR B. divergens/MO-1 PCR Babesia duncani (PCR) Babesia microti DNA PCR Borrelia (PCR) Lyme Disease Antibody E.chaffeensis DNA (PCR) E.ewingii/canis DNA PCR E. muris-like DNA (PCR) AFB Source AFB Culture Final Res M. Tuberculosis PCR AFB Smear (Ref Lab) 03/28/21 03/28/21 03/28/21 00:20 02:10 06:20 WBC RBC Hgb 12.2 L Hct 35.9 L MCV MCH MCHC RDW Plt Count MPV Immature Gran % Neutrophils % Lymphocytes % Monocytes % Eosinophils % Basophils % Nucleated RBC % Absolute Neutrophils Absolute Lymphocytes Absolute Monocytes Absolute Eosinophils Absolute Basophils Xanthochromia ESR PT INR APTT ABG Sample Site ABG pH ABG pCO2 ABG pO2 ABG HCO3 ABG Total CO2 ABG O2 Saturation ABG Base Excess VBG Lactate Oxygen Liter Flow FiO2 Sodium 149 H Cancelled Potassium 2.8 L* Cancelled Chloride 110 H Cancelled Carbon Dioxide 27.8 Cancelled Anion Gap 11.2 H Cancelled BUN 24 H Cancelled Creatinine 0.8 Cancelled Estimated GFR/1.73 m2 >= 60.00 Cancelled Glucose 133 H Cancelled Calcium 7.9 L Cancelled Magnesium Total Bilirubin AST ALT Alkaline Phosphatase Creatine Kinase Troponin I C-Reactive Protein Total Protein Albumin Ur Random Sodium Ur Random Potassium CSF Tube Number CSF Color CSF Clarity CSF WBC CSF RBC CSF RBC (1) CSF Neutrophils % CSF Lymphocytes % CSF Monos/Macrophage % CSF Diff Comment CSF Glucose CSF Total Protein A.phagocytophil DNA PCR B. divergens/MO-1 PCR Babesia duncani (PCR) Babesia microti DNA PCR Borrelia (PCR) Lyme Disease Antibody E.chaffeensis DNA (PCR) E.ewingii/canis DNA PCR E. muris-like DNA (PCR) AFB Source AFB Culture Final Res M. Tuberculosis PCR AFB Smear (Ref Lab) 03/28/21 03/28/21 03/28/21 06:20 06:20 06:20 WBC 13.66 H D RBC 3.77 L Hgb 11.5 L Hct 35.1 L MCV 93.1 MCH 30.5 MCHC 32.8 RDW 13.6 Plt Count 247 MPV 11.1 H Immature Gran % 0.4 Neutrophils % 78.5 Lymphocytes % 13.5 Monocytes % 6.5 Eosinophils % 0.7 Basophils % 0.4 Nucleated RBC % 0 Absolute Neutrophils 10.72 H Absolute Lymphocytes 1.84 Absolute Monocytes 0.89 H Absolute Eosinophils 0.10 Absolute Basophils 0.05 Xanthochromia ESR 15 PT INR APTT ABG Sample Site ABG pH ABG pCO2 ABG pO2 ABG HCO3 ABG Total CO2 ABG O2 Saturation ABG Base Excess VBG Lactate Oxygen Liter Flow FiO2 Sodium 148 H Potassium 2.6 L* Chloride 110 H Carbon Dioxide 30.2 Anion Gap 7.8 BUN 20 H Creatinine 0.8 Estimated GFR/1.73 m2 >= 60.00 Glucose 132 H Calcium 8.0 L Magnesium Total Bilirubin 0.4 AST 35 ALT 52 Alkaline Phosphatase 70 Creatine Kinase 1098 H Troponin I C-Reactive Protein 5.34 H Total Protein 6.6 Albumin 3.4 Ur Random Sodium Ur Random Potassium CSF Tube Number CSF Color CSF Clarity CSF WBC CSF RBC CSF RBC (1) CSF Neutrophils % CSF Lymphocytes % CSF Monos/Macrophage % CSF Diff Comment CSF Glucose CSF Total Protein A.phagocytophil DNA PCR B. divergens/MO-1 PCR Babesia duncani (PCR) Babesia microti DNA PCR Borrelia (PCR) Lyme Disease Antibody E.chaffeensis DNA (PCR) E.ewingii/canis DNA PCR E. muris-like DNA (PCR) AFB Source AFB Culture Final Res M. Tuberculosis PCR AFB Smear (Ref Lab) 03/28/21 03/28/21 07:32 10:35 WBC RBC Hgb Hct MCV MCH MCHC RDW Plt Count MPV Immature Gran % Neutrophils % Lymphocytes % Monocytes % Eosinophils % Basophils % Nucleated RBC % Absolute Neutrophils Absolute Lymphocytes Absolute Monocytes Absolute Eosinophils Absolute Basophils Xanthochromia ESR PT INR APTT ABG Sample Site Right Radial ABG pH 7.45 ABG pCO2 43 ABG pO2 59 L ABG HCO3 30 H ABG Total CO2 27 ABG O2 Saturation 92 L ABG Base Excess 6 H VBG Lactate Oxygen Liter Flow 360/20/5 FiO2 26 Sodium Potassium 2.8 L* Chloride Carbon Dioxide Anion Gap BUN Creatinine Estimated GFR/1.73 m2 Glucose Calcium Magnesium Total Bilirubin AST ALT Alkaline Phosphatase Creatine Kinase Troponin I C-Reactive Protein Total Protein Albumin Ur Random Sodium Ur Random Potassium CSF Tube Number CSF Color CSF Clarity CSF WBC CSF RBC CSF RBC (1) CSF Neutrophils % CSF Lymphocytes % CSF Monos/Macrophage % CSF Diff Comment CSF Glucose CSF Total Protein A.phagocytophil DNA PCR B. divergens/MO-1 PCR Babesia duncani (PCR) Babesia microti DNA PCR Borrelia (PCR) Lyme Disease Antibody E.chaffeensis DNA (PCR) E.ewingii/canis DNA PCR E. muris-like DNA (PCR) AFB Source AFB Culture Final Res M. Tuberculosis PCR AFB Smear (Ref Lab)
[2021-03-28 11:55] LABS: Magnesium 2.4 mg/dL (1.8-2.4); PHOSPHORUS < 2.0 mg/dL (2.6-4.7)
[2021-03-28] MEDS: MIDAZOLAM 50 MG in Normal Saline 90 ML 23.6 MG IV ×3 (12:20→21:22)
--- NOTE | 2021-03-28 13:16 | DI.CT_ITS ---
Exam(s) CT HEAD WO EXAM: CT HEAD WO CLINICAL HISTORY: encephalopathy. TECHNIQUE: Imaging Protocol: Axial computed tomography images with coronal and sagittal reformatted images were created and reviewed COMPARISON: CT CT HEAD WO from 03/27/2021 FINDINGS: The ventricular system is normal in appearance. No evidence of acute intracranial hemorrhage, mass effect, or midline shift. The orbital structures are unremarkable. The temporal bone structures appear intact. Calvarium: Normal. Visualized Paranasal sinuses/Mastoids: Clear. IMPRESSION: Normal cranial CT. RADIATION DOSE DELIVERED: 992.37mGy.cm Total DLP 992.37mGy.cm Total DLP CTDIvol DATA REPOSITORY: All CT scans at this facility are submitted to the National Radiology Data Registry (NRDR) Dose Index Registry (DIR) with the [employer] (A[employer]). RADIATION OPTIMIZATION: All CT scans at this facility use at least one of these dose optimization te chniques: automated exposure control; mA and/or kV adjustment per patient size (includes targeted exa ms where dose is matched to clinical indication); or iterative reconstruction.
--- NOTE | 2021-03-28 13:25 | DI.VRAD_ITS ---
PROCEDURE INFORMATION: Exam: CT Head Without Contrast Exam date and time: 03/28/2021 6:47 AM Age: 45 years old Clinical indication: Other: Encephalopathy; Patient HX: Encephalopothy TECHNIQUE: Imaging protocol: Computed tomography of the head without contrast. Radiation optimization: All CT scans at this facility use at least one of these dose optimization techniques: automated exposure control; mA and/or kV adjustment per patient size (includes targeted exams where dose is matched to clinical indication); or iterative reconstruction. COMPARISON: CT HEAD WO 03/27/2021 5:56 AM FINDINGS: Brain: Normal. No hemorrhage. Unremarkable white matter. No mass effect. Cerebral ventricles: No ventriculomegaly. Paranasal sinuses: There is scattered mild mucosal thickening in the paranasal sinuses. Mastoid air cells: Visualized mastoid air cells are well aerated. Bones/joints: Unremarkable. No acute fracture. Soft tissues: Unremarkable. IMPRESSION: No acute abnormalities are seen in the brain. Dictated and Authenticated by: Acosta Cruz MD. Ordering:[facility] Kiko Rdz MD
[2021-03-28] MEDS: PROPOFOL 1,000 MG/100 ML BTL 28.416 MG IVPB ×3 (13:51→21:15)
[2021-03-28 15:19] LABS: Anion Gap 9.6 mmol/L (3-11); BUN 16 mg/dL (7-18); CO2 29.4 mmol/L (21.0-32.0); CREATININE 0.8 mg/dL (0.70-1.30); Chloride 110 mmol/L (98-107); Glucose 102 mg/dL (74-106); Sodium 149 mmol/L (136-145)
[2021-03-28 15:22] LABS: Potassium 2.9 mmol/L (3.5-5.1)
[2021-03-28] MEDS: ACETAMINOPHEN 1,000 MG/100 ML BTL 400 MG IVPB (16:22)
[2021-03-28] MEDS: metroNIDAZOLE 500 MG/100 ML BAG 100 MG IVPB ×2 (16:45→23:58)
[2021-03-28] MEDS: Albuterol/Ipratropium 3 ML UPD VIAL UPD ×2 (18:24→22:54)
--- NOTE | 2021-03-28 23:15 | DI.RAD_ITS ---
Exam(s) XR PORTABLE CHEST AP EXAM: XR PORTABLE CHEST AP CLINICAL HISTORY: desatting on vent. TECHNIQUE: 2D digital imaging was performed. COMPARISON: CR,XR XR PORTABLE CHEST AP from 03/28/2021 FINDINGS: Chest x-ray performed 03/28/2021 at 23:27 p.m., submitted for interpretation 03/29/2021 at 8:25 a.m.. First read by [facility]. Endotracheal tube is in satisfactory position above the oanh. An NG tube is noted in the stomach w ith distal tip beyond the field of view of this study. Cardiomegaly noted. Mediastinum is not widened. Patient is rotated towards the left. Right lung ap pears clear but there is significant infiltrate in the left lower lobe again noted as well as left pl eural effusion. There is no radiographic improvement in the left lung infiltrate and pleural effusio n. Healed fracture of the left 4th rib is again noted IMPRESSION: Significant left lower lobe infiltrate and left pleural effusion without radiographic improvement.[place] osite-right lung appears relatively clear. No pneumothorax. ET tube position is satisfactory. This study 1st read by [facility]y [facility] Final report called by myself to the ICU nurse 03/29/2021 at 8:30 a.m. DATA REPOSITORY: RADIATION DOSE DELIVERED: All CT scans at this facility use at least one of these dose optimization techniques: automated exposure control; mA and/or kV adjustment per patient size (includes targeted e xams where dose is matched to clinical indication); or iterative reconstruction.
[2021-03-29] VITALS (106 sets, daily range): BP systolic 73–138; BP diastolic 39–71; PULSE 62–101; RESP 2–29; TEMP 36.5–37.7; O2SAT 84–98
[2021-03-29] MEDS: PROPOFOL 1,000 MG/100 ML BTL 24.864 MG IVPB (00:24)
--- NOTE | 2021-03-29 00:35 | DI.VRAD_ITS ---
PROCEDURE INFORMATION: Exam: XR Chest Exam date and time: 03/28/2021 11:20 PM Age: 45 years old Clinical indication: Other: Desatting on vent TECHNIQUE: Imaging protocol: XR of the chest. Views: 1 view. COMPARISON: CR XR PORTABLE CHEST AP 03/28/2021 8:59 AM FINDINGS: Tubes, catheters and devices: Endotracheal tube tip 5.6 cm above the oanh. NG tube tip extends below level of film. Lungs: Unremarkable. No consolidation. Pleural spaces: Unremarkable. No pleural effusion. No pneumothorax. Heart/Mediastinum: Unremarkable. No cardiomegaly. Bones/joints: No acute fracture. IMPRESSION: No acute finding. Dictated and Authenticated by: Rohith Ramirez MD. Ordering:INGRID Maciel MD
[2021-03-29] MEDS: VANCOMYCIN/WATER (PEG) 1 GM/200 ML BAG IV (00:44)
[2021-03-29] MEDS: levETIRAcetam 500 MG in Normal Saline 100 ML 400 MG IVPB ×2 (01:23→14:06)
[2021-03-29] MEDS: Normal Saline 500 ML 30 ML IV (02:07)
[2021-03-29] MEDS: PROPOFOL 1,000 MG/100 ML BTL 17.76 MG IVPB (04:35)
[2021-03-29] MEDS: AZTREONAM 2,000 MG in Normal Saline 100 ML 200 MG IVPB ×3 (05:02→21:06)
[2021-03-29] MEDS: DOXYCYCLINE 100 MG in Normal Saline 100 ML IVPB ×2 (05:02→17:56)
[2021-03-29] MEDS: MIDAZOLAM 50 MG in Normal Saline 90 ML IV ×2 (06:00→20:45)
[2021-03-29] MEDS: Albuterol/Ipratropium 3 ML UPD VIAL UPD ×4 (06:12→23:08)
[2021-03-29] MEDS: Normal Saline Flush 10 ML SYR IVP ×2 (06:13→13:52)
[2021-03-29 07:04] LABS: Abs Immature Grans 0.05 10^3/uL (0.0-0.06); Absolute Basophil Count 0.09 10^3/uL (0.0-0.2); Absolute Eosinophil Count 0.26 10^3/uL (0.0-0.7); Absolute Lymphocyte Count 2.48 10^3/uL (1.2-3.4); Absolute Monocyte Count 0.89 10^3/uL (0.1-0.8); Basophils % 0.9; Eosinophils % 2.7; HCT 33.7 % (40.0-50.0); HGB 10.8 g/dL (13.5-17.5); Immature Grans % 0.5; MCH 30.7 pg (27.0-33.0); MCV 95.7 fL (80-95); Monocytes % 9.3; Neutrophils % 60.6; Nucleated RBC 0 %; RBC 3.52 10^6/uL (4.36-5.78); RDW 14.2 % (11.8-14.1); RDW-SD 49.6 fL; WBC 9.54 10^3/uL (4.4-10.8)
[2021-03-29 07:11] LABS: Absolute Neutrophil Count 5.78 10^3/uL (1.2-6.7)
[2021-03-29 07:20] LABS: ALT 41 U/L (16-63); AST 48 U/L (15-37); Albumin 2.9 g/dL (3.4-5.0); Alkaline Phosphatase 62 U/L (46-116); Anion Gap 5.4 mmol/L (3-11); BUN 11 mg/dL (7-18); Bilirubin, Total 0.4 mg/dL (0.2-1.0); CO2 31.6 mmol/L (21.0-32.0); CREATININE 0.6 mg/dL (0.70-1.30); Calcium 7.7 mg/dL (8.5-10.1); Chloride 112 mmol/L (98-107); Glucose 88 mg/dL (74-106); Potassium 3.6 mmol/L (3.5-5.1); Sodium 149 mmol/L (136-145); Total Protein 6.1 g/dL (6.4-8.2)
[2021-03-29 07:29] LABS: Platelet Count 180 10^3/uL (130-400); Procalcitonin < 0.1 ng/mL
[2021-03-29] MEDS: POTASSIUM CHLORIDE/0.45% NACL 1,000 ML 110 MEQ IV ×2 (07:42→21:06)
[2021-03-29] MEDS: metroNIDAZOLE 500 MG/100 ML BAG 100 MG IVPB ×2 (07:42→16:39)
[2021-03-29] MEDS: Enoxaparin 40 MG/0.4 ML SYR SC (07:43)
[2021-03-29] MEDS: Bisacodyl 10 MG SUPP PR (07:43)
[2021-03-29] MEDS: Pantoprazole 40 MG VIAL IVP ×2 (07:44→16:44)
[2021-03-29 08:04] LABS: BE 6 mmol/L (-2-3); HCO3 31 mmol/L (22-26); pCO2 52 mmHg (35-45); pH 7.38 (7.35-7.45); pO2 88 mmHg (80-105); sO2 97 % (95-98); tCO2 29 mmol/L (23-27)
[2021-03-29 08:07] LABS: FIO2 30 %; Site Right Radial
--- NOTE | 2021-03-29 08:58 | W.PM.PROGNOT ---
Date of Service Date of service: 03/29/21 Time of Service: 08:58 Assessment and Plan Assessment and plan (1) Altered mental status: Status: Acute Assessment and plan: ddx: seizure, acute metabolic encephalopathy d/t baclofen withdrawal, meningoencephalitis, delirium d/t sepsis; toxic encephalopathy d/t illicit drug use (note UDS was negative for drugs of abuse and parents state no known drug use other than rare alcohol use), infectious encephalopathy d/t viral meningoencephalitis or d/t tick borne illness CSF bacterial culture and blood cultures still no growth. Still awaiting results of tick panel and HSV studies. Still suspect this is a metabolic encephalopathy rather than viral meningitis. Can not perform MRI while on ventilator. May obtain once he is extubated. Will stop sedation to allow more complete neuro exam and to allow for assessment for weaning. Will use Precedex prn to control agitation/sedation as versed and propofol wear off. EEG is pending at this time. cont. Keppra until completion of workup; i.e. ruling out of meningoencephalitis; negative EEG, etc. Qualifiers: Altered mental status type: delirium Qualified Code(s): R41.0 - Disorientation, unspecified (2) Rhabdomyolysis: Status: Acute Assessment and plan: secondary to prolonged muscle activity w/ flailing of arms and legs; ?seizure; continue hydration and monitoring of urine outputs. Good urine outputs (over 1000 mL overnight). CK not done this a.m. Will order. given his peripheral edema and improvement in CK and stable renal function, will decr. iv fluids Qualifiers: Rhabdomyolysis type: non-traumatic Qualified Code(s): M62.82 - Rhabdomyolysis (3) Rash and nonspecific skin eruption: Status: Acute Assessment and plan: rash preceded his acute neurologic change and therefore is a chronic condition; need to get skin biopsy results from [facility] admission 06/24/2018. (4) Leukocytosis: Status: Acute Assessment and plan: WBC normalized to 9500 today. Only source of infection so far appears to be LLL probably d/t aspiration. cont. aztreonam and flagyl. I think that vancomycin can be stopped. If tick panel is negative then will stop his doxycycline. If HSV is negative and MRI of head (will get once he is extubated) then Acyclovir can be stopped. Qualifiers: Leukocytosis type: bandemia Qualified Code(s): D72.825 - Bandemia (5) Essential hypertension: Status: Acute Assessment and plan: monitor his BP; avoid his losartan in setting of GRETCHEN (6) New onset type 2 diabetes mellitus: Status: Acute Assessment and plan: reportedly has been borderline diabetic but w/ recent A1c of 7.2% he is now in the diabetic category. Will monitor glucose q6hr and cover w/ SSI. (7) Acute kidney injury (nontraumatic): Status: Resolved Assessment and plan: d/t rhabdomyolysis; aggressive hydration and monitor his urine output and BMP; improved, now creatinine is 0.6 and BUN 11; continue hydration for rhabdomyolysis (8) Hypernatremia: Status: Acute Assessment and plan: improved. will change to LR and decr. iv fluid rate. Potassium is better but still needs supplementation (9) Hypokalemia: Status: Acute Assessment and plan: improved after multiple iv boluses. will continue to add potassium to his iv fluids and monitor. (10) Ileus: Status: Suspected Assessment and plan: incr. NG output. patient had emesis yesterday while down for CT. Hypoactive bowel sounds. Will check KUB to look for ileus/SBO (11) DVT prophylaxis: Status: Acute Assessment and plan: enoxaparin started today Subjective Subjective Interval history since last seen: Patient remains intubated mechanically ventilated day #3 he is still on Versed and propofol and fentanyl drips. Patient be switched to Precedex drip and Versed and propofol and fentanyl will be discontinued. He remains on broad-spectrum antibiotics and antivirals pending the results of his tick panel and CSF studies for HSV. He is afebrile with a T-max of 38.2 yesterday. Blood cultures remain no growth. CSF so far has shown no bacterial growth. Current ventilator settings tidal volume 420, AC of 26 breaths/min, FiO2 30%, PEEP 6 cm. ABGs are acceptable with a pH 7.38 PCO2 52 PO2 88 bicarbonate 31 O2 saturation 97%. Patient was seen and discussed with Dr. Andreina Cornejo. His respiratory rate has been decreased to 20 bpm and PEEP to 5 cm. With decreased RR he is now breathing slight over the vent at 22 to 24 bpm. Peak pressures are acceptable at 23 cm. CXR is pending from this a.m. The plan is to dc versed and propofol and fentanyl to allow these to clear his system so we can assess his neuro status and assess his weaning parameters. I do not anticipate him waking up adequately until tomorrow. I will use Precedex prn to maintain light sedation once the midazolam and propofol and fentanyl wear off. Exam Narrative Exam Narrative: Obese male who is heavily sedated not responsive to noxious stimulation Neck is obese supple with no overt JVD Lungs are clear to auscultation anteriorly posteriorly there is diminished breath sounds at the bases with no rhonchi or wheezing Heart regular rate and rhythm with no murmur rub or gallop Abdomen is obese with faint bowel sounds Extremities some edema in his hands and feet with normal peripheral pulses no cyanosis Neuro: sedated, does not respond to noxious stimulation Objective Last Vital Signs Temp 37.0 C 03/29/21 04:31 Pulse 69 03/29/21 05:01 Resp 26 H 03/29/21 05:01 BP 96/41 L 03/29/21 05:01 Pulse Ox 97 03/29/21 06:32 Laboratory Results - last 24 hr 03/27/21 03/28/21 03/28/21 05:15 06:20 06:20 WBC RBC Hgb Hct MCV MCH MCHC RDW Plt Count MPV Immature Gran % Neutrophils % Lymphocytes % Monocytes % Eosinophils % Basophils % Nucleated RBC % Absolute Neutrophils Absolute Lymphocytes Absolute Monocytes Absolute Eosinophils Absolute Basophils ESR 15 ABG Sample Site ABG pH ABG pCO2 ABG pO2 ABG HCO3 ABG Total CO2 ABG O2 Saturation ABG Base Excess Oxygen Liter Flow FiO2 Sodium 148 H Potassium 2.6 L* Chloride 110 H Carbon Dioxide 30.2 Anion Gap 7.8 BUN 20 H Creatinine 0.8 Estimated GFR/1.73 m2 >= 60.00 Glucose 132 H Calcium 8.0 L Phosphorus Cancelled Magnesium Cancelled Total Bilirubin 0.4 AST 35 ALT 52 Alkaline Phosphatase 70 Creatine Kinase 1098 H C-Reactive Protein 5.34 H Total Protein 6.6 Albumin 3.4 Procalcitonin A.phagocytophil DNA PCR Cancelled B. divergens/MO-1 PCR Cancelled Babesia duncani (PCR) Cancelled Babesia microti DNA PCR Cancelled Borrelia (PCR) Cancelled Lyme Disease Antibody Cancelled E.chaffeensis DNA (PCR) Cancelled E.ewingii/canis DNA PCR Cancelled E. muris-like DNA (PCR) Cancelled 03/28/21 03/28/21 03/28/21 06:20 10:35 14:57 WBC 13.66 H D RBC 3.77 L Hgb 11.5 L Hct 35.1 L MCV 93.1 MCH 30.5 MCHC 32.8 RDW 13.6 Plt Count 247 MPV 11.1 H Immature Gran % 0.4 Neutrophils % 78.5 Lymphocytes % 13.5 Monocytes % 6.5 Eosinophils % 0.7 Basophils % 0.4 Nucleated RBC % 0 Absolute Neutrophils 10.72 H Absolute Lymphocytes 1.84 Absolute Monocytes 0.89 H Absolute Eosinophils 0.10 Absolute Basophils 0.05 ESR ABG Sample Site ABG pH ABG pCO2 ABG pO2 ABG HCO3 ABG Total CO2 ABG O2 Saturation ABG Base Excess Oxygen Liter Flow FiO2 Sodium 149 H Potassium 2.8 L* 2.9 L Chloride 110 H Carbon Dioxide 29.4 Anion Gap 9.6 BUN 16 Creatinine 0.8 Estimated GFR/1.73 m2 >= 60.00 Glucose 102 Calcium 8.0 L Phosphorus < 2.0 L Magnesium 2.4 Total Bilirubin AST ALT Alkaline Phosphatase Creatine Kinase C-Reactive Protein Total Protein Albumin Procalcitonin A.phagocytophil DNA PCR B. divergens/MO-1 PCR Babesia duncani (PCR) Babesia microti DNA PCR Borrelia (PCR) Lyme Disease Antibody E.chaffeensis DNA (PCR) E.ewingii/canis DNA PCR E. muris-like DNA (PCR) 03/28/21 03/29/21 03/29/21 23:17 06:35 06:35 WBC 9.54 D RBC 3.52 L Hgb 10.8 L Hct 33.7 L MCV 95.7 H MCH 30.7 MCHC 32.0 RDW 14.2 H Plt Count 180 MPV Immature Gran % 0.5 Neutrophils % 60.6 Lymphocytes % 26.0 Monocytes % 9.3 Eosinophils % 2.7 Basophils % 0.9 Nucleated RBC % 0 Absolute Neutrophils 5.78 Absolute Lymphocytes 2.48 Absolute Monocytes 0.89 H Absolute Eosinophils 0.26 Absolute Basophils 0.09 ESR ABG Sample Site Cancelled ABG pH Cancelled ABG pCO2 Cancelled ABG pO2 Cancelled ABG HCO3 Cancelled ABG Total CO2 Cancelled ABG O2 Saturation Cancelled ABG Base Excess Cancelled Oxygen Liter Flow Cancelled FiO2 Cancelled Sodium 149 H Potassium 3.6 D Chloride 112 H Carbon Dioxide 31.6 Anion Gap 5.4 BUN 11 Creatinine 0.6 L Estimated GFR/1.73 m2 >= 60.00 Glucose 88 Calcium 7.7 L Phosphorus Magnesium Total Bilirubin 0.4 AST 48 H ALT 41 Alkaline Phosphatase 62 Creatine Kinase C-Reactive Protein Total Protein 6.1 L Albumin 2.9 L Procalcitonin A.phagocytophil DNA PCR B. divergens/MO-1 PCR Babesia duncani (PCR) Babesia microti DNA PCR Borrelia (PCR) Lyme Disease Antibody E.chaffeensis DNA (PCR) E.ewingii/canis DNA PCR E. muris-like DNA (PCR) 03/29/21 03/29/21 06:35 07:57 WBC RBC Hgb Hct MCV MCH MCHC RDW Plt Count MPV Immature Gran % Neutrophils % Lymphocytes % Monocytes % Eosinophils % Basophils % Nucleated RBC % Absolute Neutrophils Absolute Lymphocytes Absolute Monocytes Absolute Eosinophils Absolute Basophils ESR ABG Sample Site Right Radial ABG pH 7.38 ABG pCO2 52 H ABG pO2 88 ABG HCO3 31 H ABG Total CO2 29 H ABG O2 Saturation 97 ABG Base Excess 6 H Oxygen Liter Flow VT420/R26/P6 FiO2 30 Sodium Potassium Chloride Carbon Dioxide Anion Gap BUN Creatinine Estimated GFR/1.73 m2 Glucose Calcium Phosphorus Magnesium Total Bilirubin AST ALT Alkaline Phosphatase Creatine Kinase C-Reactive Protein Total Protein Albumin Procalcitonin < 0.1 A.phagocytophil DNA PCR B. divergens/MO-1 PCR Babesia duncani (PCR) Babesia microti DNA PCR Borrelia (PCR) Lyme Disease Antibody E.chaffeensis DNA (PCR) E.ewingii/canis DNA PCR E. muris-like DNA (PCR)
--- NOTE | 2021-03-29 09:02 | W.PULMCC ---
General Date of Service Date of service: 03/29/21 Time of Service: 08:15 Reason for Admission to ICU: Altered Mental Status Assessment and Plan Assessment and plan (1) Altered mental status: Status: Acute Qualifiers: Altered mental status type: delirium Qualified Code(s): R41.0 - Disorientation, unspecified (2) Respiratory failure: Status: Acute Qualifiers: Chronicity: acute Respiratory failure complication: unspecified whether with hypoxia or hypercapnia Qualified Code(s): J96.00 - Acute respiratory failure, unspecified whether with hypoxia or hypercapnia (3) Hypernatremia: Status: Acute (4) Hypokalemia: Status: Acute (5) Elevated CK: Status: Acute (6) Hypercapnia: Status: Acute Assessment and plan: This is a 45-year-old gentleman with obesity and baclofen use who was brought in to the emergency department for altered mental status. He has reportedly been having a headache for several days prior to presentation without any associated fever. He ultimately was intubated for airway protection and admitted to the ICU. He had a similar presentation in 2018 [facility] where he was found to have an ammonia level of 119. He underwent lumbar puncture after negative head CT that is consistent with a viral encephalitis. Recommendations Pulmonary: Intubated for airway protection -Decreased respiratory rate from 26-20 and increased I time to 0.8. Only requiring 30% FiO2, PEEP 5, - recommend tidal volume 6-8cc/kg - once less sedated, will do a pressure support trial of 5/5 Hypercapnia - normal pH, likely chronic - monitor EtCO2, no indications for scheduled or repeat ABG's at this time Cardiac: QTc Prolongation - recommend repeat EKG today to reassess Renal: Volume overload - recommend diuresis to -1L in the next 24 hours Elevated CK Clinically he does not have rhabdomyolysis nor does he have laboratory evidence to suggest this at this time given normal kidney function, low potassium levels and the lack of myoglobulinuria. - s/p aggressive IVF administration Hyponatremia Na of 150 on presentation, now 149. Likely not a high enough level to be the cause of his AMS, but likely a result of it. Current free water deficit of 2.5L (to reach Na of 145) - recommend D5W at 100cc/hr for 2 bags (2000cc total) or until Na reached 145 - Na check q6hr - Stop D5W infusion if Na reaches 145 Hypokalemia - IV/PO replacement for a goal K of 4.0 I&O: Intake & Output 03/26/21 03/27/21 03/28/21 03/29/21 23:59 23:59 23:59 23:59 Intake Total 5714.342 / 5714.342 6929.177 / 6929.177 789 / Output Total 2640 / 2640 3925 / 3925 1050 / 1050 Balance 3074.342 / 3074.342 3004.177 / 3004.177 947.789 / 947.789 Weight 118.4 kg 120.3 kg 120.2 kg Daily Fluid Goal:: -1 L GI Nutrition: NPO given constipation Discontinue OGT suction when <400cc in 24 hours output Date of Last Bowel Movement: 03/28/21 Infectious Disease: Viral Encephalitis/Meningitis CSF studies most consistent with a Viral process. 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 Unlikely to be crypto/CMV in a non immunocompromised patient - recommend MRI head while intubated sedated (rule out other etiologies and may confirm HSV encephilitis) - agree with continuing Acyclovir - would discontinue all antibacterial agents (Flagyl, doxy, aztreonam and vanc) - given CSF findings and low procalcitonin - agree with EEG to assess subacute seizures. If EEG shows seizure activity he will need to be transferred to a tertiary center - no need for special precautions, would switch to droplet precautions Hematologic: Anemia Slow trend downwards, likely due to blood draws Neurologic: AMS - likely viral encephalitis as above - discontinue Versed drip and Fentanyl drip - continue low to moderate propofol infusion - if patient becomes agitated would recommend Ketamine or Precedex infusion - goal RASS -1 - lighten sedation with plan for SBT in the morning - daily awakening trials (off all sedating drips) - aspiration precautions - if EEG negative for seizure would D/C Cami Endocrine: No acute concerns -TSH normal Lines: PIV ETT OGT Lawson Prophylaxis: Lovenox Protonix Code Status: Resuscitation Status Full Code Subjective Critical and life-threatening events over the past 24 hours: Patient remained sedated and ventilated overnight on Propofol, Versed, and Fentanyl Imaging and relevant results: Negative procalcitonin AXR 03/29/21 No report yet. Not a satisfactory film (not all of abdomen visualized). No ileus or obstruction visible. CXR 03/29/21 No report yet. Low lung volumes. Appear fluid overloaded. Prior LLL atelectatic area improved, with likely pleural effusion present. CSF 03/27/21 Bogard in color and turbid WBC 7 RBC 1560 Neutrophils 46 glucose 106 (serum 129) Protein >1000 HSV pending VDRL pending Crypto pending CMV pending BG pending ANCA pending dsDNA pending CSF fluid culture - no growth, no bacteria on stain Blood culture - no growth CXR 03/28/21 Likely LLL effusion +/- atelectasis Head CT 03/28/21 Normal scan Exam Narrative Exam Narrative: Patient has a RASS of -4. He is not breathing over the ventilator currently and his end-tidal CO2 seems appropriate in the mid 40s. Const General: no acute distress Nutritional Appearance: obese HENMT Head: normocephalic Ears: external ears normal and no periauricular adenopathy General nose exam: external nose normal Face and sinus: normal facial exam Mouth: moist mucous membranes Teeth and gingiva: dentition normal Eyes General: appearance normal, both eyes and all related structures Pupils: not reactive bilaterally and pinpoint bilaterally Neck Neck: normal visual inspection and no lymphadenopathy Chest Chest: normal inspection of the chest Resp Effort & Inspection: normal respiratory effort Auscultation: clear to auscultation bilaterally, no rales, no rhonchi and no wheezes Cardio Rate: regular rate Rhythm: regular rhythm Heart Sounds: S1 normal, S2 normal and no murmurs Pulses: radial pulses present bilaterally GI Inspection: normal to inspection Palpation: soft Skin Trauma: laceration (scrapes on bilateral hands) Nails: other (dirty) Neuro General: other (RASS -5) Extrem General: no clubbing, cyanosis or edema Psych Mental Status: mental status grossly normal Affect: normal affect Attitude: cooperative Most Recent VS/Results Last Vital Signs Temp 37.0 C 03/29/21 04:31 Pulse 69 03/29/21 05:01 Resp 26 H 03/29/21 05:01 BP 96/41 L 03/29/21 05:01 Pulse Ox 97 03/29/21 06:32 Laboratory Results - last 24 hr 03/27/21 03/28/21 03/28/21 05:15 06:20 06:20 WBC RBC Hgb Hct MCV MCH MCHC RDW Plt Count MPV Immature Gran % Neutrophils % Lymphocytes % Monocytes % Eosinophils % Basophils % Nucleated RBC % Absolute Neutrophils Absolute Lymphocytes Absolute Monocytes Absolute Eosinophils Absolute Basophils ESR 15 ABG Sample Site ABG pH ABG pCO2 ABG pO2 ABG HCO3 ABG Total CO2 ABG O2 Saturation ABG Base Excess Oxygen Liter Flow FiO2 Sodium 148 H Potassium 2.6 L* Chloride 110 H Carbon Dioxide 30.2 Anion Gap 7.8 BUN 20 H Creatinine 0.8 Estimated GFR/1.73 m2 >= 60.00 Glucose 132 H Calcium 8.0 L Phosphorus Cancelled Magnesium Cancelled Total Bilirubin 0.4 AST 35 ALT 52 Alkaline Phosphatase 70 Creatine Kinase 1098 H C-Reactive Protein 5.34 H Total Protein 6.6 Albumin 3.4 Procalcitonin A.phagocytophil DNA PCR Cancelled B. divergens/MO-1 PCR Cancelled Babesia duncani (PCR) Cancelled Babesia microti DNA PCR Cancelled Borrelia (PCR) Cancelled Lyme Disease Antibody Cancelled E.chaffeensis DNA (PCR) Cancelled E.ewingii/canis DNA PCR Cancelled E. muris-like DNA (PCR) Cancelled 03/28/21 03/28/21 03/28/21 06:20 10:35 14:57 WBC 13.66 H D RBC 3.77 L Hgb 11.5 L Hct 35.1 L MCV 93.1 MCH 30.5 MCHC 32.8 RDW 13.6 Plt Count 247 MPV 11.1 H Immature Gran % 0.4 Neutrophils % 78.5 Lymphocytes % 13.5 Monocytes % 6.5 Eosinophils % 0.7 Basophils % 0.4 Nucleated RBC % 0 Absolute Neutrophils 10.72 H Absolute Lymphocytes 1.84 Absolute Monocytes 0.89 H Absolute Eosinophils 0.10 Absolute Basophils 0.05 ESR ABG Sample Site ABG pH ABG pCO2 ABG pO2 ABG HCO3 ABG Total CO2 ABG O2 Saturation ABG Base Excess Oxygen Liter Flow FiO2 Sodium 149 H Potassium 2.8 L* 2.9 L Chloride 110 H Carbon Dioxide 29.4 Anion Gap 9.6 BUN 16 Creatinine 0.8 Estimated GFR/1.73 m2 >= 60.00 Glucose 102 Calcium 8.0 L Phosphorus < 2.0 L Magnesium 2.4 Total Bilirubin AST ALT Alkaline Phosphatase Creatine Kinase C-Reactive Protein Total Protein Albumin Procalcitonin A.phagocytophil DNA PCR B. divergens/MO-1 PCR Babesia duncani (PCR) Babesia microti DNA PCR Borrelia (PCR) Lyme Disease Antibody E.chaffeensis DNA (PCR) E.ewingii/canis DNA PCR E. muris-like DNA (PCR) 03/28/21 03/29/21 03/29/21 23:17 06:35 06:35 WBC 9.54 D RBC 3.52 L Hgb 10.8 L Hct 33.7 L MCV 95.7 H MCH 30.7 MCHC 32.0 RDW 14.2 H Plt Count 180 MPV Immature Gran % 0.5 Neutrophils % 60.6 Lymphocytes % 26.0 Monocytes % 9.3 Eosinophils % 2.7 Basophils % 0.9 Nucleated RBC % 0 Absolute Neutrophils 5.78 Absolute Lymphocytes 2.48 Absolute Monocytes 0.89 H Absolute Eosinophils 0.26 Absolute Basophils 0.09 ESR ABG Sample Site Cancelled ABG pH Cancelled ABG pCO2 Cancelled ABG pO2 Cancelled ABG HCO3 Cancelled ABG Total CO2 Cancelled ABG O2 Saturation Cancelled ABG Base Excess Cancelled Oxygen Liter Flow Cancelled FiO2 Cancelled Sodium 149 H Potassium 3.6 D Chloride 112 H Carbon Dioxide 31.6 Anion Gap 5.4 BUN 11 Creatinine 0.6 L Estimated GFR/1.73 m2 >= 60.00 Glucose 88 Calcium 7.7 L Phosphorus Magnesium Total Bilirubin 0.4 AST 48 H ALT 41 Alkaline Phosphatase 62 Creatine Kinase C-Reactive Protein Total Protein 6.1 L Albumin 2.9 L Procalcitonin A.phagocytophil DNA PCR B. divergens/MO-1 PCR Babesia duncani (PCR) Babesia microti DNA PCR Borrelia (PCR) Lyme Disease Antibody E.chaffeensis DNA (PCR) E.ewingii/canis DNA PCR E. muris-like DNA (PCR) 03/29/21 03/29/21 06:35 07:57 WBC RBC Hgb Hct MCV MCH MCHC RDW Plt Count MPV Immature Gran % Neutrophils % Lymphocytes % Monocytes % Eosinophils % Basophils % Nucleated RBC % Absolute Neutrophils Absolute Lymphocytes Absolute Monocytes Absolute Eosinophils Absolute Basophils ESR ABG Sample Site Right Radial ABG pH 7.38 ABG pCO2 52 H ABG pO2 88 ABG HCO3 31 H ABG Total CO2 29 H ABG O2 Saturation 97 ABG Base Excess 6 H Oxygen Liter Flow VT420/R26/P6 FiO2 30 Sodium Potassium Chloride Carbon Dioxide Anion Gap BUN Creatinine Estimated GFR/1.73 m2 Glucose Calcium Phosphorus Magnesium Total Bilirubin AST ALT Alkaline Phosphatase Creatine Kinase C-Reactive Protein Total Protein Albumin Procalcitonin < 0.1 A.phagocytophil DNA PCR B. divergens/MO-1 PCR Babesia duncani (PCR) Babesia microti DNA PCR Borrelia (PCR) Lyme Disease Antibody E.chaffeensis DNA (PCR) E.ewingii/canis DNA PCR E. muris-like DNA (PCR) Review of Systems Unobtainable due to endotracheal tube and Unobtainable due to mental status
[2021-03-29] MEDS: dexmedeTOMidine IN 0.9 % NACL 400 MCG/100 ML BTL 6.01 MCG IVPB (09:25)
--- NOTE | 2021-03-29 10:12 | DI.RAD_ITS ---
Exam(s) XR ABDOMEN FLAT PLATE EXAM: XR ABDOMEN FLAT PLATE CLINICAL HISTORY: lack of BM; increased NG output. TECHNIQUE: 2D digital imaging was performed. COMPARISON: No exams were available for comparison FINDINGS: NG tube is in the stomach. Is distal tip in the body of the stomach this is in satisfactory position . There is infiltrate in the left lower lobe and small left pleural effusion. The bowel gas pattern is nonspecific in the supine position. IMPRESSION: DATA REPOSITORY: RADIATION DOSE DELIVERED:
--- NOTE | 2021-03-29 10:12 | DI.RAD_ITS ---
Exam(s) XR PORTABLE CHEST AP EXAM: XR PORTABLE CHEST AP CLINICAL HISTORY: acute respiratory failure; pneumonia. TECHNIQUE: 2D digital imaging was performed. COMPARISON: CR,XR XR PORTABLE CHEST AP from 03/28/2021 FINDINGS: Patient remains intubated. Distal tip of the endotracheal tube is above the oanh at the infraclavi cular level. NG tube is again noted in the stomach. Cardiomegaly again noted. There is persistent infiltrate in the left lower lobe although this appear s to have slightly decreased size. The left-sided rib fractures are again noted. Some pleural thick ening over this region noted. Right lung remains relatively clear. No new obvious infiltrates in the right lung. No pneumothorax. No pneumomediastinum. IMPRESSION: Persistent left lower lobe infiltrate. Small left pleural effusion. Healed left-sided rib fractures . ET tube remains in satisfactory position DATA REPOSITORY: RADIATION DOSE DELIVERED: All CT scans at this facility use at least one of these dose optimization techniques: automated exposure control; mA and/or kV adjustment per patient size (includes targeted e xams where dose is matched to clinical indication); or iterative reconstruction.
[2021-03-29 10:32] LABS: Lyme Ab w Rflx to Lyme Confirm Negative (Negative)
[2021-03-29 10:52] LABS: PHOSPHORUS 2.6 mg/dL (2.6-4.7)
[2021-03-29 10:55] LABS: Creatine Kinase 3103 U/L (39-308)
--- NOTE | 2021-03-29 13:28 | NUR.NOTE ---
patient off fentanyl and versed drip stopped diprovan and started precedex at 0.2 mcgs/min. patient has not moved or responsed to painfull stimulus . lab in room for [facility]. Nursing Note:
--- NOTE | 2021-03-29 13:30 | NUR.NOTE ---
spoke with Татьяна Evans in Quality, Staff has permission to give information to parents
[2021-03-29] MEDS: diazePAM 10 MG/2 ML SYR (13:52)
--- NOTE | 2021-03-29 14:07 | PDOC.CMIN ---
- If Service Date Differs Date of service: 03/29/21 Time of Service: 14:07 Care Management Initial Assess REASON FOR HOSPITALIZATION:: Agitated Delerium PAST MEDICAL HISTORY/PAST SURGICAL HISTORY:: Medical History. Depression. Essential hypertension. History of chronic back pain. Hyperlipidemia. New onset type 2 diabetes mellitus PREVIOUS FUNCTIONAL STATUS/SOCIAL/FAMILY SUPPORTS:: Wilver lives in [place] with his son and parents, who are supportive. He is independent at baseline. CURRENT FUNCTIONAL STATUS:: Wilver is currently being monitored closely in the ICU. Per report, he is intubated and sedated. He is not able to engage at this time. CM received a call from his RN in the ICU regarding his HIPAA. He does not have a current HIPAA on file at [facility]. CM called his PCP office, and he does not have a current HIPAA on file at their facility. CM contacted [facility], who also did not have a current HIPAA on file. CM referred to Risk Management, as Wilver's parents have called asking for updates. CM was instructed to continue to search for a current HIPAA, but in the interim, his parents will be a back up for communication. CM discussed this with his RN. CM will continue to follow. ADVANCE DIRECTIVES:: None on file. Has patient been provided with info about the portal/API?: No Did the patient sign up for the portal?: No CODE STATUS:: Full Code INSURANCE COVERAGE / FINANCIAL ISSUES:: [employer] CURRENT HOME/COMMUNITY SERVICES/EQUIPMENT:: No known current services or equipment. PRIMARY CARE PHYSICIAN:: Ozzie Weinstein POTENTIAL DISCHARGE NEEDS:: Potential transfer, follow up appointments PATIENT/FAMILY EDUCATION NEEDS:: Review discharge instructions, discussion of self care needs including ask me three. ANTICIPATED BARRIERS TO DISCHARGE:: None identified at this time. TRANSPORTATION:: Dependent on disposition. PLAN:: Wilver continues to be monitored at ICU level of care. Per report, does not anticipate him waking up adequately until tomorrow. Further evaluations will be made to determine his discharge plan. NASIMA will continue to follow.
[2021-03-29] MEDS: VANCOMYCIN/WATER (PEG) 1.5 GM/300 ML BAG IV (14:42)
--- NOTE | 2021-03-29 14:55 | NUR.NOTE ---
patient had become very agitated and moving around in bed sliding down in bed precedex was increased per doctor with verbal order to go above the high dose of 0.7 increased to 1 mcg/kg/min without much of an effect. verbal order to given valium `10 mg ivp and again very little effect. fentanyl bolus was order 100 mcgs and restat fentanyl drip at 2 mcg/kg/hr. with good effect patient relaxed and able to reposition him back up in bed. respiratory had been at bedside throughout. follow mar for medciation admin.Nursing Note:
[2021-03-29 15:59] LABS: ANA Interpretation Negative (Negative)
[2021-03-29 16:04] LABS: ANCA Interpretation Negative (Negative)
[2021-03-29] MEDS: dexmedeTOMidine IN 0.9 % NACL 400 MCG/100 ML BTL 24.04 MCG IVPB (16:08)
--- NOTE | 2021-03-29 16:13 | NUR.NOTE ---
spoke with mother Lamar Irby and gave general update in regards to plan of care in addition to consent for PICC line
[2021-03-29] MEDS: dexmedeTOMidine IN 0.9 % NACL 400 MCG/100 ML BTL 18.03 MCG IVPB (19:44)
--- NOTE | 2021-03-29 21:40 | NUR.NOTE ---
Addendum entered by Fransisca Watson 03/29/21 22:46: request for contact by MD for pt's mother reviewed with pt's rn Original Note: Nursing Note: Lamar Burgos (pt's mother) called will be available by cell only tomorrow (03/30) pls call [phone]. She would like to speak to Hospitalist or Dr Marie for an update 03/30. she plans to call the ICU for RN update after 10am.
--- NOTE | 2021-03-29 22:00 | NUR.NOTE ---
Pt became agitated during shift requiring increased sedation and Kiko Krishnan ca and implemented. Pt adequately sedated on IV Fentanyl,IV Precedex,and IV Midazalamlled order for Drewalam drip obtainedNursing Note:
[2021-03-29 23:07] LABS: HSV 1 DNA Result Negative (Negative); HSV 2 DNA Result Negative (Negative)
[2021-03-30] VITALS (81 sets, daily range): BP systolic 109–140; BP diastolic 49–76; PULSE 63–104; RESP 1–31; TEMP 36–37.4; O2SAT 91–100
[2021-03-30] MEDS: metroNIDAZOLE 500 MG/100 ML BAG 100 MG IVPB ×4 (00:32→22:55)
[2021-03-30] MEDS: dexmedeTOMidine IN 0.9 % NACL 400 MCG/100 ML BTL 18.03 MCG IVPB (00:38)
[2021-03-30] MEDS: Normal Saline 500 ML 30 ML IV (00:41)
--- NOTE | 2021-03-30 00:48 | NUR.NOTE ---
Pt awakened became agitated and thrashing in bed increased sedation to max and increased FIO2 to 40%. Pt sedated after 15 min. sats improved to above 92% BP stable MAPS above 65. Will continue to monitor.Nursing Note:
[2021-03-30] MEDS: levETIRAcetam 500 MG in Normal Saline 100 ML 400 MG IVPB ×2 (01:21→14:33)
[2021-03-30] MEDS: Furosemide 20 MG/2 ML VIAL IVP (01:53)
[2021-03-30] MEDS: DEXTROSE 5%-WATER 1,000 ML 50 ML IV (02:22)
[2021-03-30] MEDS: POTASSIUM CHLORIDE 20 MEQ/100 ML BAG 50 MEQ IVPB (02:39)
[2021-03-30] MEDS: dexmedeTOMidine IN 0.9 % NACL 400 MCG/100 ML BTL 21.035 MCG IVPB ×2 (04:02→08:43)
[2021-03-30] MEDS: DOXYCYCLINE 100 MG in Normal Saline 100 ML IVPB ×2 (05:02→18:25)
[2021-03-30] MEDS: AZTREONAM 2,000 MG in Normal Saline 100 ML 200 MG IVPB ×3 (05:15→21:12)
[2021-03-30] MEDS: Albuterol/Ipratropium 3 ML UPD VIAL UPD ×3 (05:52→22:57)
[2021-03-30 06:00] LABS: Cytomegalovirus PCR Negative (Negative); Specimen Source CSF
[2021-03-30 06:44] LABS: Abs Immature Grans 0.03 10^3/uL (0.0-0.06); Absolute Basophil Count 0.08 10^3/uL (0.0-0.2); Absolute Eosinophil Count 0.48 10^3/uL (0.0-0.7); Absolute Lymphocyte Count 1.83 10^3/uL (1.2-3.4); Absolute Monocyte Count 0.65 10^3/uL (0.1-0.8); Absolute Neutrophil Count 5.14 10^3/uL (1.2-6.7); Eosinophils % 5.8; HCT 30.8 % (40.0-50.0); HGB 9.8 g/dL (13.5-17.5); Immature Grans % 0.4; Lymphocytes % 22.3; MCH 30.6 pg (27.0-33.0); MCHC 31.8 % (32.0-36.0); MCV 96.3 fL (80-95); MPV 10.9 fL (8.0-11.0); Monocytes % 7.9; Neutrophils % 62.6; Nucleated RBC 0 %; Platelet Count 190 10^3/uL (130-400); RDW 13.2 % (11.8-14.1); RDW-SD 46.5 fL; WBC 8.21 10^3/uL (4.4-10.8)
[2021-03-30 06:56] LABS: ALT 46 U/L (16-63); AST 113 U/L (15-37); Albumin 2.6 g/dL (3.4-5.0); Alkaline Phosphatase 56 U/L (46-116); BUN 8 mg/dL (7-18); Bilirubin, Total 0.5 mg/dL (0.2-1.0); CREATININE 0.7 mg/dL (0.70-1.30); Calcium 7.5 mg/dL (8.5-10.1); Chloride 107 mmol/L (98-107); Glucose 172 mg/dL (74-106); PHOSPHORUS 2.3 mg/dL (2.6-4.7); Sodium 146 mmol/L (136-145); Total Protein 5.6 g/dL (6.4-8.2)
[2021-03-30 07:11] LABS: Creatine Kinase 5269 U/L (39-308)
--- NOTE | 2021-03-30 07:11 | PUCC_ITS ---
General Date of Service Date of service: 03/30/21 Time of Service: 08:00 Reason for Admission to ICU: Altered Mental Status Assessment and Plan Assessment and plan (1) Altered mental status: Status: Acute Qualifiers: Altered mental status type: delirium Qualified Code(s): R41.0 - Disorientation, unspecified (2) Respiratory failure: Status: Acute Qualifiers: Chronicity: acute Respiratory failure complication: unspecified whether with hypoxia or hypercapnia Qualified Code(s): J96.00 - Acute respiratory failure, unspecified whether with hypoxia or hypercapnia (3) Hypernatremia: Status: Acute (4) Hypokalemia: Status: Acute (5) Elevated CK: Status: Acute (6) Hypercapnia: Status: Acute Assessment and plan: This is a 45-year-old gentleman with obesity and baclofen use who was brought in to the emergency department for altered mental status. He has reportedly been having a headache for several days prior to presentation without any associated fever. He ultimately was intubated for airway protection and admitted to the ICU. [place] [facility] [place] was found to have an ammonia level of 119. He underwent lumbar puncture after negative head CT that is consistent with a viral encephalitis. Recommendations Pulmonary: Intubated for airway protection - Minimal settings, pulling good tidal volumes on pressure support 5/5. Will leave on this unless his sats drop or his tidal volumes are not sufficient - recommend resting back on Volume Control overnight - recommend tidal volume 6-8cc/kg Hypercapnia - normal pH, likely chronic - monitor EtCO2 - keep on monitor, no indications for scheduled or repeat ABG's at this time Cardiac: QTc Prolongation, improved - repeat EKG today shows improvement of QTc at 433 Renal: Volume overload - recommend diuresis to -1L in the next 24 hours Elevated CK Clinically he does not have rhabdomyolysis nor does he have laboratory evidence to suggest this at this time given normal kidney function, low potassium levels and the lack of myoglobulinuria. - no maintenance fluids required Hypernatremia Na of 150 on presentation, now corrected to 146. - discontinued D5W Hypokalemia - IV/PO replacement for a goal K of 4.0 I&O: Intake & Output 03/27/21 03/28/21 03/29/21 03/30/21 23:59 23:59 23:59 23:59 Intake Total 5714.342 / 5714.342 6929.177 / 6929.177 6310.241 / 6310.241 879.192 / 879.192 Output Total 2640 / 2640 3925 / 3925 3650 / 3650 1700 / 1700 Balance 3074.342 / 3074.342 3004.177 / 3004.177 2660.241 / 2660.241 -820.808 / - 820.808 Weight 118.4 kg 120.3 kg 120.2 kg Daily Fluid Goal:: -1 L in 24 hours GI Nutrition: NPO for extubation and nursing bedside swallow after extubation Date of Last Bowel Movement: 03/28/21 Infectious Disease: Viral Encephalitis/Meningitis CSF studies most consistent with a Viral process. 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 Unlikely to be crypto/CMV in a non immunocompromised patient - recommend MRI head when extubated as there is not long enough tubing to perform the MRI while intubated - agree with continuing Acyclovir - would discontinue all antibacterial agents given CSF findings and low procalcitonin - need EEG today to assess subacute seizures. If EEG shows seizure activity he will need to be transferred to a tertiary center - no need for special precautions, would switch to droplet precautions Hematologic: Anemia Slow trend downwards, likely due to blood draws Neurologic: AMS - likely viral encephalitis as above - discontinued Versed drip, Fentanyl drip and Ketamine drip (messy MAR with so many sedating agents on at once, should assess need and max out current drips before adding another agent for sedation) - re-started propofol for sedation - continue Precedex infusion - if patient becomes agitated would recommend adding Ketamine infusion - goal RASS -1 - lighten sedation with plan for SBT in the morning - daily awakening trials (off all sedating drips) - aspiration precautions - need EEG today. If EEG negative for seizure would D/C Keppra. If positive for seizures, would increase Keppra to 1000mg bid and turning propofol up to max (80) as well as initiating transfer to a tertiary center Endocrine: No acute concerns -TSH normal Lines: PIV Lawson ETT OGT Prophylaxis: Lovenox Protonix Code Status: Resuscitation Status Full Code Subjective Critical and life-threatening events over the past 24 hours: Became agitated, thrashing in bed, required increased sedation Exam Narrative Exam Narrative: Sedation vacation patient thrashing but no meaningful movements. Not responding to commands. Const General: no acute distress Nutritional Appearance: obese HENMT Head: normocephalic Ears: external ears normal and no periauricular adenopathy General nose exam: external nose normal Face and sinus: normal facial exam Mouth: moist mucous membranes Teeth and gingiva: dentition normal Eyes General: appearance normal, both eyes and all related structures Pupils: not reactive bilaterally and pinpoint bilaterally Neck Neck: normal visual inspection and no lymphadenopathy Chest Chest: normal inspection of the chest Resp Effort & Inspection: normal respiratory effort Auscultation: clear to auscultation bilaterally, no rales, no rhonchi and no wheezes Cardio Rate: regular rate Rhythm: regular rhythm Heart Sounds: S1 normal, S2 normal and no murmurs Pulses: radial pulses present bilaterally GI Inspection: normal to inspection Palpation: soft Skin Trauma: laceration (scrapes on bilateral hands) Nails: other (dirty) Neuro General: other (RASS -5) Extrem General: no clubbing, no cyanosis and edema Laterality: bilateral Psych Mental Status: mental status grossly normal Affect: normal affect Attitude: cooperative Most Recent VS/Results Last Vital Signs Temp 37.2 C 03/30/21 03:11 Pulse 68 03/30/21 06:31 Resp 20 03/30/21 06:31 BP 128/49 L 03/30/21 06:31 Pulse Ox 96 03/30/21 06:31 Laboratory Results - last 24 hr 03/27/21 03/27/21 03/27/21 15:00 18:45 18:45 WBC RBC Hgb Hct MCV MCH MCHC RDW Plt Count MPV Immature Gran % Neutrophils % Lymphocytes % Monocytes % Eosinophils % Basophils % Nucleated RBC % Absolute Neutrophils Absolute Lymphocytes Absolute Monocytes Absolute Eosinophils Absolute Basophils ABG Sample Site ABG pH ABG pCO2 ABG pO2 ABG HCO3 ABG Total CO2 ABG O2 Saturation ABG Base Excess Oxygen Liter Flow FiO2 Sodium Potassium Chloride Carbon Dioxide Anion Gap BUN Creatinine Estimated GFR/1.73 m2 Glucose Calcium Phosphorus Total Bilirubin AST ALT Alkaline Phosphatase Creatine Kinase Total Protein Albumin Procalcitonin Vancomycin Trough BG Titer Not Applicable BG Titer 2 Not Applicable BG Titer 3 Not Applicable BG Interpretation Negative ANCA Immunofluorescen Negative ANCA Titer Not Applicable ANCA Pattern Not Applicable Lyme Disease Antibody Negative Path Cons Comment SEE COMMENT 03/29/21 03/29/21 03/29/21 06:35 06:35 06:35 WBC 9.54 D RBC 3.52 L Hgb 10.8 L Hct 33.7 L MCV 95.7 H MCH 30.7 MCHC 32.0 RDW 14.2 H Plt Count 180 MPV Immature Gran % 0.5 Neutrophils % 60.6 Lymphocytes % 26.0 Monocytes % 9.3 Eosinophils % 2.7 Basophils % 0.9 Nucleated RBC % 0 Absolute Neutrophils 5.78 Absolute Lymphocytes 2.48 Absolute Monocytes 0.89 H Absolute Eosinophils 0.26 Absolute Basophils 0.09 ABG Sample Site ABG pH ABG pCO2 ABG pO2 ABG HCO3 ABG Total CO2 ABG O2 Saturation ABG Base Excess Oxygen Liter Flow FiO2 Sodium 149 H Potassium 3.6 D Chloride 112 H Carbon Dioxide 31.6 Anion Gap 5.4 BUN 11 Creatinine 0.6 L Estimated GFR/1.73 m2 >= 60.00 Glucose 88 Calcium 7.7 L Phosphorus Total Bilirubin 0.4 AST 48 H ALT 41 Alkaline Phosphatase 62 Creatine Kinase Total Protein 6.1 L Albumin 2.9 L Procalcitonin < 0.1 Vancomycin Trough BG Titer BG Titer 2 BG Titer 3 BG Interpretation ANCA Immunofluorescen ANCA Titer ANCA Pattern Lyme Disease Antibody Path Cons Comment 03/29/21 03/29/21 03/29/21 07:57 10:15 13:30 WBC RBC Hgb Hct MCV MCH MCHC RDW Plt Count MPV Immature Gran % Neutrophils % Lymphocytes % Monocytes % Eosinophils % Basophils % Nucleated RBC % Absolute Neutrophils Absolute Lymphocytes Absolute Monocytes Absolute Eosinophils Absolute Basophils ABG Sample Site Right Radial ABG pH 7.38 ABG pCO2 52 H ABG pO2 88 ABG HCO3 31 H ABG Total CO2 29 H ABG O2 Saturation 97 ABG Base Excess 6 H Oxygen Liter Flow VT420/R26/P6 FiO2 30 Sodium Potassium Chloride Carbon Dioxide Anion Gap BUN Creatinine Estimated GFR/1.73 m2 Glucose Calcium Phosphorus 2.6 Total Bilirubin AST ALT Alkaline Phosphatase Creatine Kinase 3103 H Total Protein Albumin Procalcitonin Vancomycin Trough 3.0 L BG Titer BG Titer 2 BG Titer 3 BG Interpretation ANCA Immunofluorescen ANCA Titer ANCA Pattern Lyme Disease Antibody Path Cons Comment 03/30/21 03/30/21 03/30/21 06:20 06:20 06:20 WBC 8.21 RBC 3.20 L Hgb 9.8 L Hct 30.8 L MCV 96.3 H MCH 30.6 MCHC 31.8 L RDW 13.2 Plt Count 190 MPV 10.9 Immature Gran % 0.4 Neutrophils % 62.6 Lymphocytes % 22.3 Monocytes % 7.9 Eosinophils % 5.8 Basophils % 1.0 Nucleated RBC % 0 Absolute Neutrophils 5.14 Absolute Lymphocytes 1.83 Absolute Monocytes 0.65 Absolute Eosinophils 0.48 Absolute Basophils 0.08 ABG Sample Site ABG pH ABG pCO2 ABG pO2 ABG HCO3 ABG Total CO2 ABG O2 Saturation ABG Base Excess Oxygen Liter Flow FiO2 Sodium 146 H Potassium 3.0 L Chloride 107 Carbon Dioxide 32.0 Anion Gap 7.0 BUN 8 Creatinine 0.7 Estimated GFR/1.73 m2 >= 60.00 Glucose 172 H D Calcium 7.5 L Phosphorus 2.3 L Total Bilirubin 0.5 AST 113 H ALT 46 Alkaline Phosphatase 56 Creatine Kinase Total Protein 5.6 L Albumin 2.6 L Procalcitonin Vancomycin Trough BG Titer BG Titer 2 BG Titer 3 BG Interpretation ANCA Immunofluorescen ANCA Titer ANCA Pattern Lyme Disease Antibody Path Cons Comment Review of Systems Unobtainable due to endotracheal tube and Unobtainable due to mental status
--- NOTE | 2021-03-30 07:15 | RT.EKG_ITS ---
APPROVED REPORT Exam: Resting ECG Reason for Exam: QTc prolongation Patient Location: I HR:71 bpm ECG Measurements Heart Rate 71 AXIS NC 176 P 7 QRSd 107 QRS 14 QT 399 T 5 QTc 433 Conclusion Sinus rhythm...normal P axis, V-rate 60- 99 Consider anterior infarct...Q >30mS in V2-V5
[2021-03-30] MEDS: PROPOFOL 1,000 MG/100 ML BTL 28.848 MG IVPB (08:37)
[2021-03-30] MEDS: POTASSIUM CHLORIDE 10 MEQ/100 ML BAG 100 MEQ IVPB ×2 (08:55→11:08)
[2021-03-30] MEDS: Pantoprazole 40 MG VIAL IVP (08:57)
[2021-03-30] MEDS: Bisacodyl 10 MG SUPP PR (08:58)
[2021-03-30] MEDS: Enoxaparin 40 MG/0.4 ML SYR SC (08:58)
[2021-03-30] MEDS: Normal Saline Flush 10 ML SYR IVP ×2 (08:58→13:08)
--- NOTE | 2021-03-30 09:41 | W.INDIABCONS ---
Date of service: 03/30/21 Time of Service: 09:41 Diabetes Inpatient Consult DESCRIPTION/ASSESSMENT: 45 year old male admitted with AMS, currently intubated with respiratory failure with hypernatremia, hypokalemia and PMH: DM2, morbid obesity, HLD. Day 3 of NPO status. Appears well nourished prior to intubation. IV fluids/propofol noted. Most recent A1C: 6.8% (01/29/21) indicating well controlled DM. Low serum calcium, phos, K - to be repleted. Sodium remains elevated despite IV fluid adjustment INTERVENTION: continue NPO status, advance diet when possible. If unable to extubate and advance diet for > 5 days, consider nutrition support to maintain lean body mass and immune function. PLAN: will continue to follow Time Spent in Nutritional Counseling and Treatment: 5
--- NOTE | 2021-03-30 10:20 | PDOC.CMPRO ---
- If Service Date Differs Date of service: 03/30/21 Time of Service: 10:20 Care Management Progress Note S/O: Wilver remains intubated and sedated at this time. Today he had an EEG, EKG, and was seen by the [place] [facility]. He is being closely monitored at ICU level of care. CM will continue to follow. A: Wilver is a 45 year old male admitted to [facility] on 03/27/21 for agitated delerium. P: Wilver continues to be monitored at ICU level of care. Further evaluations will be made to determine his discharge plan. CM will continue to follow.
[2021-03-30] MEDS: PROPOFOL 1,000 MG/100 ML BTL 46.878 MG IVPB ×5 (11:24→19:51)
--- NOTE | 2021-03-30 12:23 | PDOC.EEG_ITS ---
Neurology EEG EEG: [facility] Department of Neurology INPATIENT EEG REPORT Date of Recordin03/30/21 Interpreting Physician: Dr. Yocasta Brito Reason for study: Mr. Burgos is a 45 year-old man admitted with altered mental status, currently intubated and sedated. Current Medications: Current Medications Albuterol Sulfate (Albuterol 2.5 Mg/3 Ml Inh Soln Vial) 2.5 mg UPD Q2H PRN PRN Albuterol Sulfate (Albuterol Hfa 8 Gm 60 Puff Inh) 2 puff IH Q6H PRN PRN Albuterol/Ipratropium (Albuterol/Ipratropium 3 Ml Upd Vial) 3 ml UPD Q6H [facility] Last Admin: 03/30/21 05:52 Dose: 3 ml Documented by: Bisacodyl (Bisacodyl 10 Mg Supp) 10 mg VT DAILY [facility] Last Admin: 03/30/21 08:58 Dose: 10 mg Documented by: Chlorhexidine Gluconate (Chlorhexidine Gluconate 0.12% Mouthwash 118 Ml Btl) 0 ml MM Q2H PRN PRN Chlorhexidine Gluconate (Chlorhexidine Gluconate 0.12% Mouthwash 118 Ml Btl) 0 ml MM BID [facility] Last Admin: 03/30/21 08:30 Dose: 15 ml Documented by: Dimethicone/Zinc Oxide (Jose C Protect Cream 142 Gm Tube) 0 gm TP PRN PRN Enoxaparin Sodium (Enoxaparin 40 Mg/0.4 Ml Syr) 40 mg SC DAILY [facility] Last Admin: 03/30/21 08:58 Dose: 40 mg Documented by: Fentanyl (Fentanyl 100 Mcg/2 Ml Vial) 100 mcg IVP Q1H PRN PRN Sodium Chloride (Saline 500ml Bag) 500 mls @ 0 mls/hr IV PRN PRN Last Infusion: 03/30/21 02:30 Dose: 0 mls/hr Documented by: Doxycycline Hyclate 100 mg/ (Sodium Chloride) 100 mls @ 100 mls/hr IVPB Q12H [facility] Last Infusion: 03/30/21 07:06 Dose: Infused Documented by: Aztreonam 2,000 mg/ Sodium (Chloride) 100 mls @ 200 mls/hr IVPB Q8H [facility] Last Infusion: 03/30/21 06:30 Dose: Infused Documented by: Acyclovir Sodium 750 mg/ (Sodium Chloride) 250 mls @ 250 mls/hr IVPB Q8H [facility] Last Infusion: 03/30/21 12:12 Dose: Infused Documented by: Levetiracetam 500 mg/ Sodium (Chloride) 105 mls @ 400 mls/hr IVPB Q12H [facility] Last Infusion: 03/30/21 01:37 Dose: Infused Documented by: Acetaminophen (Ofirmev) 1,000 mg in 100 mls @ 400 mls/hr IVPB Q8H PRN PRN Last Infusion: 03/28/21 16:40 Dose: Infused Documented by: Metronidazole (Flagyl) 500 mg in 100 mls @ 100 mls/hr IVPB Q8H [facility] Last Infusion: 03/30/21 09:56 Dose: Infused Documented by: Dexmedetomidine/Sodium Chloride (Precedex) 400 mcg in 100 mls @ 6.01 mls/hr IVPB INFUSION [facility]; Protocol Last Titration: 03/30/21 11:07 Dose: 0.9 mcg/kg/hr, 27.045 mls/hr Documented by: Fentanyl 2,500 mcg/ Sodium (Chloride) 250 mls @ 24.04 mls/hr IV INFUSION [facility]; Protocol Last Titration: 03/30/21 08:02 Dose: 0 mcg/kg/hr, 0 mls/hr Documented by: Propofol (Diprivan) 1,000 mg in 100 mls @ 14.424 mls/hr IVPB INFUSION [facility]; Pr otocol Last Admin: 03/30/21 11:24 Dose: 65 mcg/kg/min, 46.878 mls/hr Documented by: IV Miscellaneous Supplies (Iv Access) 1 each IV DIRECTED [facility] Pantoprazole Sodium (Pantoprazole 40 Mg Vial) 40 mg IVP DAILY [facility] Last Admin: 03/30/21 08:57 Dose: 40 mg Documented by: Sodium Chloride (Normal Saline Flush 10 Ml Syr) 0 ml IVP PRN PRN Last Admin: 03/30/21 08:58 Dose: 60 ml Documented by: METHODS: A 21 channel digitized electroencephalogram was performed in the [facility] Med/Surg Floor or ICU. The 10/20 international system of electrode placement was used and bipolar and referential electrode montages were recorded. In addition to EEG the patient was monitored for EKG and lateral/vertical eye movements. Activation procedures of photic stimulation and hyperventilation were performed if applicable. Video was used during activation procedures and during events where applicable. The duration of the recording was 30 minutes. DESCRIPTION OF EEG: The EEG was manifested by generalized, polymorphic, moderate amplitude delta activity with some periods of alpha activity centralized over the vertex and possibly consistent with sleep architecture. No epileptiform activity was seen. No focality was seen on the EEG either. Activating Procedures: Photic stimulation and hyperventilation were not performed. EKG: EKG revealed normal sinus rhythm. INTERPRETATION: This EEG is abnormal due to moderate generalized slowing. PRIOR EEG: none CLINICAL CORRELATION: The background slowing is suggestive of a moderate diffuse cerebral encephalopathy of broad differential including toxic-metabolic etiology. No focal regions of cerebral dysfunction or epileptiform activity was present. Clinical correlation is advised. Yocasat Brito MD
[2021-03-30 12:58] LABS: Adenovirus PCR Negative (Negative); Specimen Source CSF
[2021-03-30] MEDS: dexmedeTOMidine IN 0.9 % NACL 400 MCG/100 ML BTL 27.045 MCG IVPB ×3 (13:02→19:51)
[2021-03-30 13:27] LABS: dsDNA Ab, IgG <12.3 IU/mL (<30.0)
--- NOTE | 2021-03-30 13:27 | W.NUTCONSULT ---
Date of service: 03/30/21 Time of Service: 13:27 Nutritional Consult ASSESSMENT: Wilver continues to be intubated and sedated. Meds include 1000 mg of propofol in 100 ml. Receiving 41 ml/hr NS for hydration. To start enteral feeding as expect NPO status to be > 5 days. Estimated Needs (based on adjusted weight: 81 kg): 1843-0183 kcal, 80-100 g protein, 2430 ml fluid NUTRITIONAL DIAGNOSIS: Inability to meet macro/micro nutrient needs in view of extended period of intubation/sedation INTERVENTION: In view of sedation with propofol, slowly initiate enteral feeding and increase to goal as tolerated. Recommend Jevity 1.5 initiate 10 ml/hour- if tolerated, increase by 10 ml q 4 hours until goal of 60 ml/hour providing total of 2160 kcal, 90 g protein, 1080 ml free water. When IV fluid discontinued, start water flushes of 240 ml q 4 hours- providing total of 1440 ml free water check residuals q 4 hours, if > 100 ml, hold enteral feeding for 4 hours and recheck. MONITORING AND EVALUATION: tolerance to tube feeding, residuals, labs Time Spent in Nutritional Counseling and Treatment: 0
[2021-03-30 13:43] LABS: Vancomycin, Trough 2.4 ug/mL (10.0-20.0)
[2021-03-30 14:08] LABS: VDRL, CSF Negative (Negative)
[2021-03-30] MEDS: Normal Saline 500 ML IV (14:34)
[2021-03-30] MEDS: Nystatin POWDER 60 GM JAR TP ×2 (15:53→19:54)
[2021-03-30 16:05] LABS: Anaplasma phagocytophilum Negative (Negative); B. miyamotoi PCR Negative (Negative); Babesia divergens/MO-1 Negative (Negative); Babesia duncani Negative (Negative); Babesia microti Negative (Negative); Ehrlichia chaffeensis Negative (Negative); Ehrlichia ewingii/canis Negative (Negative); Ehrlichia muris eauclairensis Negative (Negative)
--- NOTE | 2021-03-30 17:49 | PGE_ITS ---
Date of Service Date of service: 03/30/21 Time of Service: 17:51 Assessment and Plan Assessment and plan (1) Altered mental status: Status: Acute Assessment and plan: ddx: status epilepticus ruled out by EEG. EEG did show background slowing that is suggestive of a moderate diffuse cerebral encephalopathy of broad differential including toxic-metabolic etiology. No focal regions of cerebral dysfunction or epileptiform activity was present. CSF bacterial culture and blood cultures still no growth. Negative tick panel and HSV studies. Negative EBV and adenovirus. Still suspect this is a metabolic encephalopathy rather than viral meningitis. Can not perform MRI while on ventilator. May obtain once he is extubated. Will stop sedation again to allow more complete neuro exam and to allow for assessment for weaning tomorrow. Qualifiers: Altered mental status type: delirium Qualified Code(s): R41.0 - Disorientation, unspecified (2) Rhabdomyolysis: Status: Acute Assessment and plan: secondary to prolonged muscle activity w/ flailing of arms and legs but can be seen in baclofen withdrawal; Good urine outputs (over 1000 mL overnight). CK increased to 5269. I's>O's. Receiving significant fluids via antibiotics and other IV medications. Qualifiers: Rhabdomyolysis type: non-traumatic Qualified Code(s): M62.82 - Rhabdomyolysis (3) Rash and nonspecific skin eruption: Status: Acute Assessment and plan: rash preceded his acute neurologic change and therefore is a chronic condition; need to get skin biopsy results from [facility] [place] admission 06/24/2018. (4) Leukocytosis: Status: Acute Assessment and plan: WBC normalized to 9500. Only source of infection so far appears to be LLL probably d/t aspiration. cont. aztreonam and flagyl. Stop doxycycline. HSV is negative. If, when able to obtain, MRI of head is negative for suspicion of HSV (will get once he is extubated) then Acyclovir can be stopped. Qualifiers: Leukocytosis type: bandemia Qualified Code(s): D72.825 - Bandemia (5) Essential hypertension: Status: Acute Assessment and plan: monitor his BP; avoid his losartan in setting of GRETCHEN (6) New onset type 2 diabetes mellitus: Status: Acute Assessment and plan: reportedly has been borderline diabetic but w/ recent A1c of 7.2% he is now in the diabetic category. Will monitor glucose q6hr and cover w/ SSI. (7) Acute kidney injury (nontraumatic): Status: Resolved Assessment and plan: Resolved. Creatinine now 0.7 (8) Hypernatremia: Status: Acute Assessment and plan: improved with D5W. Now no IV maintainance fluids. (9) Hypokalemia: Status: Acute Assessment and plan: K 3.0. IV supplementation. (10) Ileus: Status: Suspected Assessment and plan: NG outpt was minimal overnight. Begin enteral nutrition with nutrition input. (11) DVT prophylaxis: Status: Acute Assessment and plan: enoxaparin. Subjective Subjective Interval history since last seen: Sedated / intubated. Earlier this AM on pressure support only but then became restless. Increased propofol and precedex to sedate in efforts to obtain EEG. Exam Narrative Exam Narrative: Obese male who is heavily sedated not responsive to noxious stimulation Neck is obese supple with no overt JVD Lungs are clear to auscultation anteriorly. Heart regular rate and rhythm with no murmur rub Abdomen is obese with faint bowel sounds Extremities some edema in his hands and feet. no cyanosis Neuro: sedated, does not respond to noxious stimulation Objective Last Vital Signs Temp 37.0 C 03/30/21 16:30 Pulse 74 03/30/21 15:01 Resp 16 03/30/21 15:01 BP 136/76 03/30/21 15:01 Pulse Ox 91 L 03/30/21 15:01 Laboratory Results - last 24 hr 03/27/21 03/27/21 03/27/21 15:00 15:00 18:45 WBC RBC Hgb Hct MCV MCH MCHC RDW Plt Count MPV Immature Gran % Neutrophils % Lymphocytes % Monocytes % Eosinophils % Basophils % Nucleated RBC % Absolute Neutrophils Absolute Lymphocytes Absolute Monocytes Absolute Eosinophils Absolute Basophils ABG Sample Site ABG pH ABG pCO2 ABG pO2 ABG HCO3 ABG Total CO2 ABG O2 Saturation ABG Base Excess Oxygen Liter Flow FiO2 Sodium Potassium Chloride Carbon Dioxide Anion Gap BUN Creatinine Estimated GFR/1.73 m2 Glucose Calcium Phosphorus Total Bilirubin AST ALT Alkaline Phosphatase Creatine Kinase Total Protein Albumin CSF VDRL Negative CSF CMV Specimen Source CSF Vancomycin Trough Double Strand DNA Ab <12.3 Adenovirus Source CSF Adenovirus (PCR) Negative A.phagocytophil DNA PCR B. divergens/MO-1 PCR Babesia duncani (PCR) Babesia microti DNA PCR Borrelia (PCR) CMV DNA Qual PCR Negative E.chaffeensis DNA (PCR) E.ewingii/canis DNA PCR E. muris-like DNA (PCR) HSV Source Description HSV I DNA PCR HSV II DNA PCR 03/27/21 03/28/21 03/30/21 18:45 15:30 05:35 WBC RBC Hgb Hct MCV MCH MCHC RDW Plt Count MPV Immature Gran % Neutrophils % Lymphocytes % Monocytes % Eosinophils % Basophils % Nucleated RBC % Absolute Neutrophils Absolute Lymphocytes Absolute Monocytes Absolute Eosinophils Absolute Basophils ABG Sample Site Cancelled ABG pH Cancelled ABG pCO2 Cancelled ABG pO2 Cancelled ABG HCO3 Cancelled ABG Total CO2 Cancelled ABG O2 Saturation Cancelled ABG Base Excess Cancelled Oxygen Liter Flow Cancelled FiO2 Cancelled Sodium Potassium Chloride Carbon Dioxide Anion Gap BUN Creatinine Estimated GFR/1.73 m2 Glucose Calcium Phosphorus Total Bilirubin AST ALT Alkaline Phosphatase Creatine Kinase Total Protein Albumin CSF VDRL CSF CMV Specimen Source Vancomycin Trough Double Strand DNA Ab Adenovirus Source Adenovirus (PCR) A.phagocytophil DNA PCR Negative B. divergens/MO-1 PCR Negative Babesia duncani (PCR) Negative Babesia microti DNA PCR Negative Borrelia (PCR) Negative CMV DNA Qual PCR E.chaffeensis DNA (PCR) Negative E.ewingii/canis DNA PCR Negative E. muris-like DNA (PCR) Negative HSV Source Description Not Applicable HSV I DNA PCR Negative HSV II DNA PCR Negative 03/30/21 03/30/21 03/30/21 06:20 06:20 06:20 WBC 8.21 RBC 3.20 L Hgb 9.8 L Hct 30.8 L MCV 96.3 H MCH 30.6 MCHC 31.8 L RDW 13.2 Plt Count 190 MPV 10.9 Immature Gran % 0.4 Neutrophils % 62.6 Lymphocytes % 22.3 Monocytes % 7.9 Eosinophils % 5.8 Basophils % 1.0 Nucleated RBC % 0 Absolute Neutrophils 5.14 Absolute Lymphocytes 1.83 Absolute Monocytes 0.65 Absolute Eosinophils 0.48 Absolute Basophils 0.08 ABG Sample Site ABG pH ABG pCO2 ABG pO2 ABG HCO3 ABG Total CO2 ABG O2 Saturation ABG Base Excess Oxygen Liter Flow FiO2 Sodium 146 H Potassium 3.0 L Chloride 107 Carbon Dioxide 32.0 Anion Gap 7.0 BUN 8 Creatinine 0.7 Estimated GFR/1.73 m2 >= 60.00 Glucose 172 H D Calcium 7.5 L Phosphorus 2.3 L Total Bilirubin 0.5 AST 113 H ALT 46 Alkaline Phosphatase 56 Creatine Kinase Total Protein 5.6 L Albumin 2.6 L CSF VDRL CSF CMV Specimen Source Vancomycin Trough Double Strand DNA Ab Adenovirus Source Adenovirus (PCR) A.phagocytophil DNA PCR B. divergens/MO-1 PCR Babesia duncani (PCR) Babesia microti DNA PCR Borrelia (PCR) CMV DNA Qual PCR E.chaffeensis DNA (PCR) E.ewingii/canis DNA PCR E. muris-like DNA (PCR) HSV Source Description HSV I DNA PCR HSV II DNA PCR 03/30/21 03/30/21 06:20 13:00 WBC RBC Hgb Hct MCV MCH MCHC RDW Plt Count MPV Immature Gran % Neutrophils % Lymphocytes % Monocytes % Eosinophils % Basophils % Nucleated RBC % Absolute Neutrophils Absolute Lymphocytes Absolute Monocytes Absolute Eosinophils Absolute Basophils ABG Sample Site ABG pH ABG pCO2 ABG pO2 ABG HCO3 ABG Total CO2 ABG O2 Saturation ABG Base Excess Oxygen Liter Flow FiO2 Sodium Potassium Chloride Carbon Dioxide Anion Gap BUN Creatinine Estimated GFR/1.73 m2 Glucose Calcium Phosphorus Total Bilirubin AST ALT Alkaline Phosphatase Creatine Kinase 5269 H Total Protein Albumin CSF VDRL CSF CMV Specimen Source Vancomycin Trough 2.4 L Double Strand DNA Ab Adenovirus Source Adenovirus (PCR) A.phagocytophil DNA PCR B. divergens/MO-1 PCR Babesia duncani (PCR) Babesia microti DNA PCR Borrelia (PCR) CMV DNA Qual PCR E.chaffeensis DNA (PCR) E.ewingii/canis DNA PCR E. muris-like DNA (PCR) HSV Source Description HSV I DNA PCR HSV II DNA PCR
[2021-03-30] MEDS: fentaNYL 100 MCG/2 ML VIAL IVP ×2 (20:11→22:42)
[2021-03-30] MEDS: PROPOFOL 1,000 MG/100 ML BTL 54.09 MG IVPB ×2 (21:58→23:47)
[2021-03-30] MEDS: dexmedeTOMidine IN 0.9 % NACL 400 MCG/100 ML BTL 30.05 MCG IVPB (23:35)
[2021-03-31] VITALS (92 sets, daily range): BP systolic 107–175; BP diastolic 54–110; PULSE 49–106; RESP 7–30; TEMP 36.8–37.8; O2SAT 82–99
[2021-03-31] MEDS: fentaNYL 100 MCG/2 ML VIAL IVP ×8 (00:07→22:30)
[2021-03-31] MEDS: levETIRAcetam 500 MG in Normal Saline 100 ML 400 MG IVPB ×2 (01:13→14:36)
[2021-03-31] MEDS: PROPOFOL 1,000 MG/100 ML BTL 54.09 MG IVPB ×2 (01:41→03:33)
[2021-03-31] MEDS: dexmedeTOMidine IN 0.9 % NACL 400 MCG/100 ML BTL 30.05 MCG IVPB (02:51)
[2021-03-31] MEDS: Normal Saline 500 ML IV (04:27)
[2021-03-31] MEDS: AZTREONAM 2,000 MG in Normal Saline 100 ML 200 MG IVPB ×3 (04:58→22:30)
[2021-03-31] MEDS: Albuterol/Ipratropium 3 ML UPD VIAL UPD (05:04)
[2021-03-31 05:29] LABS: Anion Gap 6.8 mmol/L (3-11); BUN 9 mg/dL (7-18); CO2 31.2 mmol/L (21.0-32.0); CREATININE 0.5 mg/dL (0.70-1.30); Calcium 8.2 mg/dL (8.5-10.1); Chloride 108 mmol/L (98-107); Glucose 116 mg/dL (74-106); Potassium 3.7 mmol/L (3.5-5.1); Sodium 146 mmol/L (136-145)
[2021-03-31 05:32] LABS: Creatine Kinase 3692 U/L (39-308)
--- NOTE | 2021-03-31 05:36 | NUR.NOTE ---
NPt agitated and moving arms an legs increased Propofol drip to 85mcg/kg/hr and increased Precedex drip to 1mcg/kg/hr as pt agitated. Suctioned pt orally for thick creamy secretions and very scant clear secretions via ETT. ursing Note:
[2021-03-31] MEDS: PROPOFOL 1,000 MG/100 ML BTL 61.302 MG IVPB ×2 (05:46→07:46)
[2021-03-31] MEDS: dexmedeTOMidine IN 0.9 % NACL 400 MCG/100 ML BTL 24.04 MCG IVPB (06:49)
[2021-03-31] MEDS: Normal Saline Flush 10 ML SYR IVP (07:46)
[2021-03-31] MEDS: Enoxaparin 40 MG/0.4 ML SYR SC (08:29)
[2021-03-31] MEDS: metroNIDAZOLE 500 MG/100 ML BAG 100 MG IVPB ×2 (08:29→16:26)
[2021-03-31] MEDS: Nystatin POWDER 60 GM JAR TP ×3 (09:28→20:44)
[2021-03-31] MEDS: Pantoprazole 40 MG VIAL IVP (09:28)
[2021-03-31] MEDS: Ziprasidone 20 MG VIAL IM (09:56)
--- NOTE | 2021-03-31 10:00 | CMPROGNOTE_ITS ---
- If Service Date Differs Date of service: 03/31/21 Time of Service: 10:00 Care Management Progress Note S/O: Per report, Wilver was extubated today. His RN stated that he has been combative since his extubation, and stated that it would not be a good idea to visit at this time. His RN's have been updating his parents. His discharge plan remains unclear at this time, awaiting further evaluations. CM will continue to follow. A: Wilver is a 45 year old male admitted to [facility] on 03/27/21 for agitated delerium. P: Wilver continues to be monitored at ICU level of care. Further evaluations will be made to determine his discharge plan. CM will continue to follow.
--- NOTE | 2021-03-31 10:17 | NUR.NOTE ---
During trial to remove ET tube, propofol was adjusted at the following times. 30 @ 0710 Shut off @ 0715 Turned to 85 @ 0732 96 @ 0748 Shut off at 0753 Nursing Note:
[2021-03-31] MEDS: Water,Injection,Sterile 10 ML VIAL (10:33)
--- NOTE | 2021-03-31 12:33 | NUR.NOTE ---
Ex called seeking information. It was explained to her that this securities underwriter did not have a release of medical information completed at this time. Caller got upset with this securities underwriter questioning the purpose of an emergency contact. This securities underwriter explained that the release has not been filled out and she needed ti follow up with his parents for up to date information. Caller did not accept this and stated she was being given the wrong information. At this time this securities underwriter referred caller to care management.
--- NOTE | 2021-03-31 13:04 | W.PULMCC ---
General Date of Service Date of service: 03/31/21 Time of Service: 08:00 Reason for Admission to ICU: Altered Mental Status Assessment and Plan Assessment and plan (1) Altered mental status: Status: Acute Qualifiers: Altered mental status type: delirium Qualified Code(s): R41.0 - Disorientation, unspecified (2) Respiratory failure: Status: Acute Qualifiers: Chronicity: acute Respiratory failure complication: unspecified whether with hypoxia or hypercapnia Qualified Code(s): J96.00 - Acute respiratory failure, unspecified whether with hypoxia or hypercapnia (3) Hypernatremia: Status: Acute (4) Hypokalemia: Status: Acute (5) Elevated CK: Status: Acute (6) Hypercapnia: Status: Acute Assessment and plan: This is a 45-year-old gentleman with obesity and baclofen use who was brought in to the emergency department for altered mental status. He has reportedly been having a headache for several days prior to presentation without any associated fever. He ultimately was intubated for airway protection and admitted to the ICU. He had a similar presentation in 2018 [facility] [place] where he was found to have an ammonia level of 119. He underwent lumbar puncture after negative head CT that showed a very high level of protein with a slightly elevated lymphocyte count. His infectious work-up thus far for an encephalitis/meningitis has been negative. Recommendations Pulmonary: Intubated for airway protection - patient extubated today and initially placed on HFNC for added support and later weaned to nasal cannula Hypercapnia, likely chronic - duonebs QID as tolerated - supplemental oxygen as tolerated Cardiac: QTc Prolongation, improved Renal: Elevated CK Clinically he does not have rhabdomyolysis nor does he have laboratory evidence to suggest this at this time given normal kidney function, low potassium levels and the lack of myoglobulinuria. - no maintenance fluids required - would not continue to trend CK unless there is a clinical change Hypernatremia, resolved Na of 150 on presentation, now corrected to 146. - discontinued D5W Hypokalemia - IV/PO replacement for a goal K of 4.0 I&O: Intake & Output 03/28/21 03/29/21 03/30/21 03/31/21 23:59 23:59 23:59 23:59 Intake Total 6929.177 / 6929.177 6310.241 / 6310.241 5031.206 / 5031.206 1315.426 / 1315.426 Output Total 3925 / 3925 3650 / 3650 3950 / 3950 1950 / 1950 Balance 3004.177 / 3004.177 2660.241 / 2660.241 1081.206 / 1081.206 -634.574 / -634.574 Weight 120.3 kg 120.2 kg Daily Fluid Goal:: -500 to -1L in 24 hours GI Nutrition: - NPO for now - MIND READER evaluation tomorrow Date of Last Bowel Movement: 03/31/21 Infectious Disease: Concern for Viral Encephalitis/Meningitis CSF studies not consistent with a bacterial meningitis. My initial thoughts that this was a viral or aseptic process however his infectious disease work-up has come back grossly negative. He has a significant amount of protein in his CSF fluid (even after correction for traumatic tap) that could be consistent with a viral process however may also represent a primary neurologic inflammatory condition in which protein leaks into the fluid due to inflammation. - would continue acyclovir for now - EEG showed no seizure activity and was consistent with a toxic-metabolic encephalopathy, likely propofol sedation Hematologic: Anemia Slow trend downwards, likely due to blood draws Neurologic: AMS Aseptic encephalitis versus possibly primary inflammatory neurological condition given extremely high protein in CSF. there was an initial thought of baclofen withdrawal however this would not cause the protein in the CSF. Some of his altered mental status may be due to extremely high doses of Versed and fentanyl drips when he first was admitted over the weekend. He has now been off of Versed since Monday and showing some slow improvements with his mental status. - discontinue propofol - Ketamine infusion for pain control - continue Precedex infusion if needed for agitation - goal RASS 0 - aspiration precautions - would recommend neurology consultation for assistance with diagnosis of CSF proetin and AMS - delerium prevention (windows open and lights on during day, lights off and noise low at night) Endocrine: No acute concerns Lines: PIV Lawson Prophylaxis: Lovenox Can discontinue Protonix as patient extubated Code Status: Resuscitation Status Full Code Subjective Critical and life-threatening events over the past 24 hours: Patient remained intubated and sedated overnight. Exam Narrative Exam Narrative: Sedation vacation patient opening eyes to voice. Not following commands. Strong cough. Const General: no acute distress Nutritional Appearance: obese HENMT Head: normocephalic Ears: external ears normal and no periauricular adenopathy General nose exam: external nose normal Face and sinus: normal facial exam Mouth: moist mucous membranes Teeth and gingiva: dentition normal Eyes General: appearance normal, both eyes and all related structures Pupils: not reactive bilaterally and pinpoint bilaterally Neck Neck: normal visual inspection and no lymphadenopathy Chest Chest: normal inspection of the chest Resp Effort & Inspection: normal respiratory effort Auscultation: clear to auscultation bilaterally, no rales, no rhonchi and no wheezes Cardio Rate: regular rate Rhythm: regular rhythm Heart Sounds: S1 normal, S2 normal and no murmurs Pulses: radial pulses present bilaterally GI Inspection: normal to inspection Palpation: soft Skin Trauma: laceration (scrapes on bilateral hands) Nails: other (dirty) Neuro General: other (-2) Extrem General: no clubbing, no cyanosis and edema Laterality: bilateral Psych Mental Status: mental status grossly normal Affect: normal affect Attitude: cooperative Most Recent VS/Results Last Vital Signs Temp 37.1 C 03/31/21 12:23 Pulse 72 03/31/21 10:47 Resp 19 03/31/21 10:47 BP 146/79 H 03/31/21 07:00 Pulse Ox 95 03/31/21 07:24 Laboratory Results - last 24 hr 03/27/21 03/27/21 03/27/21 15:00 15:00 18:45 Sodium Potassium Chloride Carbon Dioxide Anion Gap BUN Creatinine Estimated GFR/1.73 m2 Glucose Calcium Creatine Kinase CSF VDRL Negative Vancomycin Trough Double Strand DNA Ab <12.3 Adenovirus Source CSF Adenovirus (PCR) Negative A.phagocytophil DNA PCR B. divergens/MO-1 PCR Babesia duncani (PCR) Babesia microti DNA PCR Borrelia (PCR) E.chaffeensis DNA (PCR) E.ewingii/canis DNA PCR E. muris-like DNA (PCR) 03/27/21 03/30/21 03/31/21 18:45 13:00 04:40 Sodium 146 H Potassium 3.7 D Chloride 108 H Carbon Dioxide 31.2 Anion Gap 6.8 BUN 9 Creatinine 0.5 L Estimated GFR/1.73 m2 >= 60.00 Glucose 116 H Calcium 8.2 L Creatine Kinase 3692 H CSF VDRL Vancomycin Trough 2.4 L Double Strand DNA Ab Adenovirus Source Adenovirus (PCR) A.phagocytophil DNA PCR Negative B. divergens/MO-1 PCR Negative Babesia duncani (PCR) Negative Babesia microti DNA PCR Negative Borrelia (PCR) Negative E.chaffeensis DNA (PCR) Negative E.ewingii/canis DNA PCR Negative E. muris-like DNA (PCR) Negative Review of Systems Unobtainable due to endotracheal tube and Unobtainable due to mental status
--- NOTE | 2021-03-31 13:14 | NUR.NOTE ---
Nursing Note: 10.00:patient rolling around in bed pulling oxygen of face and pulling at catheter.Frequently throwing legs over bed rails.Patient redirected with simple instructions but not able to follow commands. 11.30 Patient on hands and knees in bed and growling.Trying to get out of bed.Making verbal sounds but garbled speech except for one statement please call my parents whiich was very clear and ungarbled
--- NOTE | 2021-03-31 15:05 | NUR.NOTE ---
Patient called his family today. Explained to the family that he is still confused and struggling to follow commands. Patient was able to state come pick me up to family. I explained to the patient that he is in the hospital and still needs to stay to get better. Family will call back later to speak to patient again later. Nursing Note:
--- NOTE | 2021-03-31 16:32 | NCONE_ITS ---
Date of service: 03/31/21 Time of Service: 16:32 Assessment and Plan Assessment and plan (1) Altered mental status: Status: Acute Qualifiers: Altered mental status type: delirium Qualified Code(s): R41.0 - Disorientation, unspecified (2) Delirium: Status: Acute (3) Elevated CK: Status: Acute Assessment and plan: Mr. Burgos is a 45 year-old young man admitted with agitated delirium of unclear etiology. I agree that CSF testing does not seem consistent with infectious etiology. The very elevated protein is unusual. This is a non-specific marker of inflammation supported by other elevated acute phase reactants/inflammatory markers. Why this is occurring is unclear. Baclofen withdrawal has been proposed as an etiology to his symptoms, and his symptoms would definitely be consistent. Not sure that it has been associated with the lab marker findings. Based on my exam today, I would give him more time to recover from his several days of sedation. If he remains agitated, would check a paraneoplastic panel - serum definitely and in CSF if there is some left over. Would then consider a trial of either high dose IV steroids (solumedrol 1000mg IV daily x3- 5 days) - watch for worsening agitation - vs IVIG 2gm/kg div over 5 days for possible inflammatory condition. Otherwise, no prior reports to suggest a muscle disease. CK remains elevated. Post-hospitalization would repeat CK and if still elevated, he should return to neurology for further evaluation. Please call with any further questions or concerns. Thank you. History of Present Illness History of Present Illness Chief Complaint: AMS Narrative: Handedness: unknown. HPI: Mr. Burgos is a 45 year-old man with HTN, HLD, chronic back pain, and depression. He was admitted on 03/27/21 with agitated delirium that became increasingly severe in the preceding days. He was ultimately intubated due to his agitation and to protect both him and staff. He was extubated earlier today. He has been agitated since extubation, now on ketamine drip. Prior to admission, there was concern about baclofen withdrawal. He had apparently been on Baclofen for some time and it was stopped. In preceding days to admission, he had been complaining of headache. No fevers. He has undergone the work-up below. In May 2018, he presented in a similar manner requiring intubation. He was transferred to [facility] [place]. No obvious etiology was found at that time, however, he had just been STARTED on baclofen and symptoms were felt to be due to the medication. Work-up: -[facility] (03/27/21 and 03/28/21): no acute findings. I reviewed these images personally and this is my personal interpretation. -LP: WBC 7, RBC 1560, glucose 106, protein >1000 (was 48 in 2018 at [facility] [place]), VDRL neg -WBC: 27.16 --> 8.21 -HGB 13.4 --> 9.8 -Plt 301 --> 190 -ESR 17 --> 5 -Na 150 --> 146 -K 3.2 --> 2.6 --> 3.7 -Ammonia 27 (was 119 in 2018) -TSH 0.67 -Procalcitonin: 0.1 and <0.1 -CRP 2.96 --> 5.34 -CK: ~9189-0661 (was similar levels in 2018; had normal level of 155 in 2014) -UDS: neg -BG/ANCA: neg -Tick/Lyme panel: neg -HSV I/II: neg Consults Requesting physician: Ryland Siddiqi Review of Systems Unobtainable due to mental status [facility] Medical History (Updated 03/31/21 @ 18:24 by Ryland Siddiqi MD) Depression Essential hypertension History of chronic back pain Hyperlipidemia New onset type 2 diabetes mellitus Social History Smoking/Tobacco Use Status: Current every day Smoking risk assessment performed?: Yes Drug use: Never Do you feel safe at home: Yes Do you feel safe in your relationship?: Yes Visit Medication and Allergies Active Medications Generic Name Dose Route Start Last Admin Trade Name Freq PRN Reason Stop Dose Admin Albuterol Sulfate 2.5 mg 03/27/21 11:28 Albuterol 2.5 Mg/3 Ml Inh Soln Vial UPD Q2H PRN PRN Albuterol Sulfate 2 puff 03/28/21 14:07 Albuterol Hfa 8 Gm 60 Puff Inh IH Q6H PRN PRN Albuterol/Ipratropium 3 ml 03/28/21 18:00 03/31/21 13:36 Albuterol/Ipratropium 3 Ml Upd Vial UPD Not Given Q6H CLAUS Bisacodyl 10 mg 03/29/21 08:30 03/31/21 08:31 Bisacodyl 10 Mg Supp WA Not Given DAILY CLAUS Chlorhexidine Gluconate 0 ml 03/28/21 14:15 Chlorhexidine Gluconate 0.12% Mouthwash 118 Ml Btl MM Q2H PRN PRN Chlorhexidine Gluconate 0 ml 03/28/21 20:00 03/31/21 09:28 Chlorhexidine Gluconate 0.12% Mouthwash 118 Ml Btl MM Not Given BID CLAUS Dimethicone/Zinc Oxide 0 gm 03/27/21 11:28 Jose C Protect Cream 142 Gm Tube TP PRN PRN Enoxaparin Sodium 40 mg 03/29/21 08:30 03/31/21 08:29 Enoxaparin 40 Mg/0.4 Ml Syr SC 40 mg DAILY CLAUS Administration Fentanyl 100 mcg 03/30/21 01:22 03/31/21 16:27 Fentanyl 100 Mcg/2 Ml Vial IVP 100 mcg Q1H PRN PRN Administration Sodium Chloride 500 mls @ 0 mls/hr 03/27/21 07:20 03/31/21 04:27 Saline 500ml Bag IV 1 mls/hr PRN PRN Administration As Directed Aztreonam 2,000 mg/ Sodium 100 mls @ 200 mls/hr 03/27/21 14:00 03/31/21 15:14 Chloride IVPB Infused Q8H CLAUS Infusion Acyclovir Sodium 750 mg/ 250 mls @ 250 mls/hr 03/27/21 16:00 03/31/21 16:26 Sodium Chloride IVPB 250 mls/hr Q8H CLAUS Administration Levetiracetam 500 mg/ Sodium 105 mls @ 400 mls/hr 03/28/21 02:00 03/31/21 14:52 Chloride IVPB Infused Q12H CLAUS Infusion Acetaminophen 1,000 mg in 100 mls @ 400 mls/hr 03/28/21 15:08 03/28/21 16:40 Ofirmev IVPB Infused Q8H PRN PRN Infusion Metronidazole 500 mg in 100 mls @ 100 mls/hr 03/28/21 16:00 03/31/21 16:26 Flagyl IVPB 100 mls/hr Q8H CLAUS Administration Dexmedetomidine/Sodium Chloride 400 mcg in 100 mls @ 6.01 mls/hr 03/29/21 08:45 03/31/21 10:32 Precedex IVPB Infused [facility]1983 Titration Protocol 0.2 MCG/KG/HR Fentanyl 2,500 mcg/ Sodium 250 mls @ 24.04 mls/hr 03/29/21 15:00 03/30/21 08:02 Chloride IV 0 mcg/kg/hr INFUSION CLAUS 0 mls/hr Titration Protocol 2 MCG/KG/HR Propofol 1,000 mg in 100 mls @ 14.424 mls/hr 03/30/21 08:45 03/31/21 08:45 Diprivan IVPB Infused [facility]1983 Titration Protocol 20 MCG/KG/MIN Ketamine HCl 200 mg/ Sodium 100 mls @ 6.01 mls/hr 03/31/21 10:30 03/31/21 10:38 Chloride IV 0.1 mg/kg/hr INFUSION CLAUS 6.01 mls/hr Administration Protocol 0.1 MG/KG/HR IV Miscellaneous Supplies 1 each 03/27/21 07:30 Iv Access IV DIRECTED CLAUS Nystatin 0 gm 03/30/21 14:00 03/31/21 14:58 Nystatin Powder 60 Gm Jar TP 1 applic TID CLAUS Administration Pantoprazole Sodium 40 mg 03/29/21 08:30 03/31/21 09:28 Pantoprazole 40 Mg Vial IVP 40 mg DAILY CLAUS Administration Sodium Chloride 0 ml 03/27/21 07:20 03/31/21 07:46 Normal Saline Flush 10 Ml Syr IVP 60 ml PRN PRN Administration Allergies Penicillins Allergy (Unknown, Unverified 06/24/18 19:47) Sulfa (Sulfonamide Antibiotics) Adverse Reaction (Intermediate, Unverified 06/24/18 19:47) vomitting Exam Narrative Exam Narrative: Physical Exam: Constitutional: Patient of apparent stated age, just received 100mcg fentanyl and on ketamine drip so awake but drowsy Neck: Supple, no meningismus CV: RRR, S1, S2, no murmur Resp: CTAB Abd: Soft, nontender, nondistended, +BS, BMI 45 Neuro: MS/Language/Speech: drowsy, mild dysarthria; able to follow commands fairly consistently; knew his name and CN: PERRL, EOMI, visual villarreal appear full, trigeminal sensation intact, no facial asymmetry, hearing intact, palate elevates symmetrically, tongue protrudes midline Motor: Normal bulk and tone. Soft restraints in place. Moving all extremities equally. Sensation: withdrew to noxious stimuli in all extremities Reflexes: hyporeflexic throughout, downgoing toes Coordination: no ataxia Gait: unable to safely test at this time Results Last Vital Signs Temp 37.1 C 03/31/21 16:27 Pulse 78 03/31/21 15:52 Resp 20 03/31/21 15:52 BP 153/82 H 03/31/21 15:52 Pulse Ox 97 03/31/21 13:57 Labs Result diagrams: 03/30/21 06:20 03/31/21 04:40 Labs: Laboratory Results - last 24 hr 03/31/21 04:40 Sodium 146 H Potassium 3.7 D Chloride 108 H Carbon Dioxide 31.2 Anion Gap 6.8 BUN 9 Creatinine 0.5 L Estimated GFR/1.73 m2 >= 60.00 Glucose 116 H Calcium 8.2 L Creatine Kinase 3692 H
[2021-03-31] MEDS: dexmedeTOMidine IN 0.9 % NACL 400 MCG/100 ML BTL 6.01 MCG IVPB (18:04)
--- NOTE | 2021-03-31 18:17 | W.PM.PROGNOT ---
Date of Service Date of service: 03/31/21 Time of Service: 18:17 Assessment and Plan Assessment and plan (1) Elevated CK: Status: Acute Assessment and plan: Elevated on admission; increased and now trending downward. Normal renal function (2) Respiratory failure: Status: Acute Assessment and plan: Now extubated and stable on 2L NC. Pulmonary/critical care following. Qualifiers: Chronicity: acute Respiratory failure complication: unspecified whether with hypoxia or hypercapnia Qualified Code(s): J96.00 - Acute respiratory failure, unspecified whether with hypoxia or hypercapnia (3) Hypokalemia: Status: Acute Assessment and plan: resolved Monitor. (4) Hypernatremia: Status: Acute Assessment and plan: Improving. Now mildly elevated at 146. Monitor (5) New onset type 2 diabetes mellitus: Status: Acute Assessment and plan: Random glucose of 116 this AM. Still NPO until less confused and safe to feed. Will monitor glucose ACHS when eating and initiate sliding scale insulin correction dosing. Possibly basal insulin if needed. (6) Essential hypertension: Status: Acute Assessment and plan: SBP in the 110's to 150's. Agitation likely playing a role in elevations. Currently not on antihypertensives. Will monitor. (7) Altered mental status: Status: Acute Assessment and plan: Unclear etiology. Metabolic encephalopathy likely. Cxs are negative to date. Tick panel negative. HSV negative. Toxicology negative. CSF protein was elevated. If CSF fluid still available will run a paraneoplastic panel. If not, will run on serum. Consider steroid empirically. MRI of head may be helpful and is planned once he is calm enough to cooperate. Neurology following. Qualifiers: Altered mental status type: delirium Qualified Code(s): R41.0 - Disorientation, unspecified (8) Anemia: Status: Chronic Assessment and plan: Hgb on admission 13.4. Now 9.8. Likely some dilutional component and possibly bone marrow suppression d/t acute illness. MCV is not low so likely not Fe def. Check stool for occult blood. Check B12/folate. Subjective Subjective Interval history since last seen: Pt is confused and restless. In restraints post-extubation. Exam Narrative Exam Narrative: Intermittently flailing arms and trying to get out of bed when not restrained. Also pulls at keenan catheter. Const General: other (agitated/restless) Nutritional Appearance: obese Limitations: altered mental status Eyes Sclera: sclerae normal Pupils: PERRL Resp Effort & Inspection: normal respiratory effort Auscultation: clear to auscultation bilaterally Cardio Rate: regular rate Rhythm: regular rhythm Heart Sounds: S1 normal and S2 normal GI Inspection: obesity Palpation: soft Auscultation: normal bowel sounds Skin General skin exam: no rashes or lesions noted Neuro General: patient awake and no focal motor deficits Cranial Nerves: gag reflex normal Cognition: abnormal cognition Objective Last Vital Signs Temp 36.8 C 03/31/21 17:27 Pulse 81 03/31/21 17:27 Resp 22 03/31/21 17:27 BP 153/82 H 03/31/21 15:52 Pulse Ox 97 03/31/21 13:57 Laboratory Results - last 24 hr 03/31/21 04:40 Sodium 146 H Potassium 3.7 D Chloride 108 H Carbon Dioxide 31.2 Anion Gap 6.8 BUN 9 Creatinine 0.5 L Estimated GFR/1.73 m2 >= 60.00 Glucose 116 H Calcium 8.2 L Creatine Kinase 3692 H
[2021-03-31] MEDS: ACETAMINOPHEN 1,000 MG/100 ML BTL 400 MG IVPB (20:44)
[2021-03-31 20:53] LABS: Folate 14.8 ng/mL (8.6-20.0); Vitamin B12 1106 pg/mL (193-986)
[2021-03-31] MEDS: dexmedeTOMidine IN 0.9 % NACL 400 MCG/100 ML BTL 45.075 MCG IVPB ×2 (21:35→23:35)
[2021-03-31] MEDS: OLANZapine 10 MG VIAL 5 MG IM (22:54)
[2021-04-01] VITALS (59 sets, daily range): BP systolic 117–181; BP diastolic 59–107; PULSE 44–99; RESP 8–35; TEMP 36.8–37.7; O2SAT 84–99
[2021-04-01] MEDS: metroNIDAZOLE 500 MG/100 ML BAG 100 MG IVPB ×3 (00:13→16:17)
[2021-04-01] MEDS: fentaNYL 100 MCG/2 ML VIAL IVP ×5 (00:13→06:05)
[2021-04-01] MEDS: dexmedeTOMidine IN 0.9 % NACL 400 MCG/100 ML BTL 45.075 MCG IVPB ×3 (01:59→06:24)
[2021-04-01] MEDS: levETIRAcetam 500 MG in Normal Saline 100 ML 400 MG IVPB ×2 (02:25→15:02)
[2021-04-01] MEDS: AZTREONAM 2,000 MG in Normal Saline 100 ML 200 MG IVPB ×3 (06:04→22:18)
[2021-04-01 06:54] LABS: Abs Immature Grans 0.05 10^3/uL (0.0-0.06); Absolute Basophil Count 0.05 10^3/uL (0.0-0.2); Absolute Lymphocyte Count 1.08 10^3/uL (1.2-3.4); Absolute Monocyte Count 0.87 10^3/uL (0.1-0.8); Absolute Neutrophil Count 9.66 10^3/uL (1.2-6.7); Basophils % 0.4; Eosinophils % 3.3; HCT 31.7 % (40.0-50.0); HGB 10.9 g/dL (13.5-17.5); Immature Grans % 0.4; Lymphocytes % 8.9; MCH 30.7 pg (27.0-33.0); MCHC 34.4 % (32.0-36.0); MCV 89.3 fL (80-95); MPV 11.5 fL (8.0-11.0); Monocytes % 7.2; Neutrophils % 79.8; Nucleated RBC 0 %; Platelet Count 237 10^3/uL (130-400); RBC 3.55 10^6/uL (4.36-5.78); RDW 12.6 % (11.8-14.1); RDW-SD 40.6 fL; WBC 12.11 10^3/uL (4.4-10.8)
[2021-04-01 07:05] LABS: Anion Gap 11.8 mmol/L (3-11); BUN 15 mg/dL (7-18); CO2 30.2 mmol/L (21.0-32.0); CREATININE 0.8 mg/dL (0.70-1.30); Calcium 8.5 mg/dL (8.5-10.1); Chloride 107 mmol/L (98-107); Glucose 120 mg/dL (74-106); Potassium 3.1 mmol/L (3.5-5.1); Sodium 149 mmol/L (136-145)
[2021-04-01] MEDS: Normal Saline Flush 10 ML SYR IVP ×2 (08:22→16:18)
[2021-04-01] MEDS: Pantoprazole 40 MG VIAL IVP (08:23)
[2021-04-01] MEDS: Enoxaparin 40 MG/0.4 ML SYR SC (08:23)
[2021-04-01 09:09] LABS: Vitamin B12 1052 pg/mL (193-986)
[2021-04-01] MEDS: Nystatin POWDER 60 GM JAR TP ×3 (09:29→20:41)
[2021-04-01 09:54] LABS: EBV DNA Detect/Quant, P Undetected IU/mL (Undetected)
[2021-04-01 10:19] LABS: Myoglobin, U 20 mcg/L (<=65)
--- NOTE | 2021-04-01 10:27 | CMPROGNOTE_ITS ---
- If Service Date Differs Date of service: 04/01/21 Time of Service: 10:27 Care Management Progress Note S/O: Wilver was sitting up in bed when CM met with him. This is the first day of this admission that CM was able to communicate with the pt directly. He stated that he does not remember the previous 5 days when he has been hospitalized. CM assisted him to sign a new HIPAA, which he added his parents to. His diet will be advanced today, and he requested a chocolate milk while CM was in the room, stating that he is hungry. He reported that he is living with his parents and is not currently working. He stated that he is feeling better, but still not at his baseline. CM will continue to follow. A: Wilver is a 45 year old male admitted to [facility] on 03/27/21 for agitated delerium. P: Wilver continues to be monitored at ICU level of care. Further evaluations will be made to determine his discharge plan. CM will continue to follow.
[2021-04-01] MEDS: Simethicone 80 MG CHEW 160 MG PO (11:27)
[2021-04-01] MEDS: Albuterol/Ipratropium 3 ML UPD VIAL UPD (13:37)
[2021-04-01] MEDS: Normal Saline 500 ML 30 ML IV (15:00)
--- NOTE | 2021-04-01 20:45 | W.PM.PROGNOT ---
Date of Service Date of service: 04/01/21 Time of Service: 20:45 Assessment and Plan Assessment and plan (1) Anemia: Status: Chronic Assessment and plan: Stable Hgb MCV,B12, folate normal. (2) Elevated CK: Status: Acute Assessment and plan: Improving (3) Hypokalemia: Status: Acute Assessment and plan: Oral replacement Monitor (4) Hypernatremia: Status: Acute Assessment and plan: Improving. Na now 149. (5) New onset type 2 diabetes mellitus: Status: Acute Assessment and plan: Diabetic diet. Pt now alert and safe to eat. ACHS glucose monitoring. SS insulin correction dosing. Decide on oral diabetic medications. (6) Essential hypertension: Status: Acute Assessment and plan: Restart his losartan and clonidine. Holding chlorthalidone currently while electrolytes normalize. Monitor (7) Altered mental status: Status: Acute Assessment and plan: Significant improvement. Now A&O,conversant and cooperative. Uncertain of etiology; patient does wonder if this was d/t to abrupt cessation in use of baclofen and/or armodafinil. MRI head to be considered. Qualifiers: Altered mental status type: delirium Qualified Code(s): R41.0 - Disorientation, unspecified Subjective Subjective Patient reports: tolerating liquids well and afebrile Interval history since last seen: Pt now out of restraints and is cooperative. No difficulty handling secretions. Denies any pain, N/V. Exam Const General: cooperative and no acute distress Nutritional Appearance: obese Orientation: alert, oriented to person and oriented to place Eyes Sclera: sclerae normal Pupils: PERRL Resp Effort & Inspection: normal respiratory effort Auscultation: clear to auscultation bilaterally Cardio Rate: regular rate Rhythm: regular rhythm Heart Sounds: S1 normal and S2 normal GI Inspection: obesity Palpation: nontender Skin General skin exam: no rashes or lesions noted Neuro General: no focal motor deficits Cranial Nerves: facial strength normal Speech: speech normal Extrem General: no pedal edema and no calf tenderness Psych Appearance: grossly normal Mood: congruent mood Affect: normal affect Objective Last Vital Signs Temp 37.1 C 04/01/21 19:40 Pulse 76 04/01/21 19:40 Resp 26 H 04/01/21 19:40 BP 155/69 H 04/01/21 19:40 Pulse Ox 94 04/01/21 19:40 Laboratory Results - last 24 hr 03/27/21 03/30/21 03/31/21 18:45 03:15 04:40 WBC RBC Hgb Hct MCV MCH MCHC RDW Plt Count MPV Immature Gran % Neutrophils % Lymphocytes % Monocytes % Eosinophils % Basophils % Nucleated RBC % Absolute Neutrophils Absolute Lymphocytes Absolute Monocytes Absolute Eosinophils Absolute Basophils Sodium Potassium Chloride Carbon Dioxide Anion Gap BUN Creatinine Estimated GFR/1.73 m2 Glucose Calcium Vitamin B12 1106 H Folate 14.8 Urine Myoglobin 20 EBV DNA, Quant Undetected 04/01/21 04/01/21 04/01/21 06:15 06:15 06:15 WBC 12.11 H RBC 3.55 L Hgb 10.9 L Hct 31.7 L MCV 89.3 MCH 30.7 MCHC 34.4 RDW 12.6 Plt Count 237 MPV 11.5 H Immature Gran % 0.4 Neutrophils % 79.8 Lymphocytes % 8.9 Monocytes % 7.2 Eosinophils % 3.3 Basophils % 0.4 Nucleated RBC % 0 Absolute Neutrophils 9.66 H Absolute Lymphocytes 1.08 L Absolute Monocytes 0.87 H Absolute Eosinophils 0.40 Absolute Basophils 0.05 Sodium 149 H Potassium 3.1 L Chloride 107 Carbon Dioxide 30.2 Anion Gap 11.8 H BUN 15 D Creatinine 0.8 Estimated GFR/1.73 m2 >= 60.00 Glucose 120 H Calcium 8.5 Vitamin B12 Cancelled Folate Urine Myoglobin EBV DNA, Quant 04/01/21 06:15 WBC RBC Hgb Hct MCV MCH MCHC RDW Plt Count MPV Immature Gran % Neutrophils % Lymphocytes % Monocytes % Eosinophils % Basophils % Nucleated RBC % Absolute Neutrophils Absolute Lymphocytes Absolute Monocytes Absolute Eosinophils Absolute Basophils Sodium Potassium Chloride Carbon Dioxide Anion Gap BUN Creatinine Estimated GFR/1.73 m2 Glucose Calcium Vitamin B12 1052 H Folate Urine Myoglobin EBV DNA, Quant
[2021-04-01] MEDS: Potassium Chloride 20 MEQ TABCR PO (22:18)
[2021-04-02] VITALS (21 sets, daily range): BP systolic 152–181; BP diastolic 70–93; PULSE 53–88; RESP 5–24; TEMP 36.7–37.2; O2SAT 94–96
--- NOTE | 2021-04-02 | DI.MRI_ITS ---
Exam(s) MR BRAIN WO EXAM: MR BRAIN WO CLINICAL HISTORY: encephalopathy. TECHNIQUE: Multiplanar multisequence MRI of the brain was performed. COMPARISON: No exams were available for comparison FINDINGS: The ventricular system is normal in appearance. No signal abnormality identified in the brain. The orbital and temporal bone structures appear intact as does the pituitary. Diffusion weighted imaging shows no evidence of infarction. Susceptibility weighted imaging shows no evidence of intracranial hemorrhage. There is normal flow void in the in[place] of [place] vasculature. IMPRESSION: Normal brain MRI DATA REPOSITORY:
[2021-04-02] MEDS: Albuterol/Ipratropium 3 ML UPD VIAL UPD ×3 (00:34→11:25)
[2021-04-02] MEDS: metroNIDAZOLE 500 MG/100 ML BAG 100 MG IVPB ×2 (00:35→08:43)
[2021-04-02] MEDS: levETIRAcetam 500 MG in Normal Saline 100 ML 400 MG IVPB (03:00)
[2021-04-02] MEDS: OLANZapine 5 MG TAB PO (04:44)
[2021-04-02] MEDS: AZTREONAM 2,000 MG in Normal Saline 100 ML 200 MG IVPB ×3 (06:22→22:34)
[2021-04-02 07:23] LABS: Abs Immature Grans 0.08 10^3/uL (0.0-0.06); Absolute Basophil Count 0.08 10^3/uL (0.0-0.2); Absolute Eosinophil Count 0.35 10^3/uL (0.0-0.7); Absolute Lymphocyte Count 1.48 10^3/uL (1.2-3.4); Absolute Neutrophil Count 7.05 10^3/uL (1.2-6.7); Basophils % 0.8; Eosinophils % 3.5; HCT 33.9 % (40.0-50.0); HGB 11.3 g/dL (13.5-17.5); Immature Grans % 0.8; Lymphocytes % 14.7; MCH 30.3 pg (27.0-33.0); MCHC 33.3 % (32.0-36.0); MCV 90.9 fL (80-95); MPV 11.4 fL (8.0-11.0); Neutrophils % 70.2; Nucleated RBC 0 %; Platelet Count 244 10^3/uL (130-400); RBC 3.73 10^6/uL (4.36-5.78); RDW 12.9 % (11.8-14.1); RDW-SD 41.7 fL; WBC 10.04 10^3/uL (4.4-10.8)
[2021-04-02] MEDS: cloNIDine 0.1 MG TAB PO ×3 (08:43→20:37)
[2021-04-02] MEDS: Losartan 50 MG TAB 100 MG PO (08:43)
[2021-04-02] MEDS: Enoxaparin 40 MG/0.4 ML SYR SC (08:43)
[2021-04-02] MEDS: Pantoprazole 40 MG VIAL IVP (08:43)
[2021-04-02] MEDS: PARoxetine 20 MG TAB 40 MG PO (08:43)
[2021-04-02] MEDS: Normal Saline Flush 10 ML SYR IVP ×2 (08:44→15:31)
[2021-04-02] MEDS: Potassium Chloride 20 MEQ TABCR PO ×2 (08:47→20:37)
[2021-04-02 09:07] LABS: BUN 13 mg/dL (7-18); CREATININE 0.6 mg/dL (0.70-1.30); Calcium 8.6 mg/dL (8.5-10.1); Chloride 107 mmol/L (98-107); Glucose 117 mg/dL (74-106); Potassium 3.2 mmol/L (3.5-5.1); Sodium 147 mmol/L (136-145)
[2021-04-02] MEDS: Nystatin POWDER 60 GM JAR TP ×3 (09:28→20:38)
--- NOTE | 2021-04-02 10:19 | PUCC_ITS ---
General Date of Service Date of service: 04/02/21 Time of Service: 07:45 Reason for Admission to ICU: AMS Assessment and Plan Assessment and plan (1) Altered mental status: Status: Acute Qualifiers: Altered mental status type: delirium Qualified Code(s): R41.0 - Disorientation, unspecified (2) Respiratory failure: Status: Acute Qualifiers: Chronicity: acute Respiratory failure complication: unspecified whether with hypoxia or hypercapnia Qualified Code(s): J96.00 - Acute respiratory failure, unspecified whether with hypoxia or hypercapnia (3) Hypernatremia: Status: Acute (4) Hypokalemia: Status: Acute (5) Elevated CK: Status: Acute (6) Hypercapnia: Status: Acute Assessment and plan: This is a 45-year-old gentleman with obesity and baclofen use who was brought in to the emergency department for altered mental status. He has reportedly been having a headache for several days prior to presentation without any associated fever. He ultimately was intubated for airway protection and admitted to the ICU. He had a similar presentation in 2018 [facility] [place] where he was found to have an ammonia level of 119. He underwent lumbar puncture after negative head CT that showed a very high level of protein with a slightly elevated lymphocyte count. His infectious work-up thus far for an encephalitis/meningitis has been negative. Is now awake alert and oriented which is a drastic improvement from the last time I saw him. Given the t rajectory of his recovery it seems most likely that he did have some withdrawal reaction to baclofen and that the use of long-lasting sedating agents such as Versed over a few days along with a very high dose fentanyl drip resulted in his lasting encephalopathy. The etiology of the high amounts of protein in his CSF is still not fully understood as well as his elevated CK in the absence of rhabdomyolysis. A follow-up visit with neurology as an outpatient as well as a repeat blood draw for CK a few weeks after his discharge is likely indicated. From my perspective the patient is safe to be transferred to the medical [facility] from ICU as he no longer has any ICU care needs. Recommendations Pulmonary: Patient now extubated and doing well. - prn nebs when inpatient Hypercapnia, likely chronic - recommend Duonebs QID - outpatient evaluation with PCP Cardiac: Hypertension - recommend restarting home chlorthalidone and losartan Renal: Elevated CK Clinically he does not have rhabdomyolysis nor does he have laboratory evidence to suggest this at this time given normal kidney function, low potassium levels and the lack of myoglobulinuria (was tested and was low). - repeat CK as an outpatient Hypernatremia Slight worsening of Na yesterday, improved slightly today, will improved will better PO intake Hypokalemia - IV/PO replacement for a goal K of 4.0 I&O: Intake & Output 03/30/21 03/31/21 04/01/21 04/02/21 23:59 23:59 23:59 23:59 Intake Total 5031.206 / 5031.206 2742.364 / 2742.364 2925.737 / 2925.737 1209 / 1209 Output Total 3950 / 3950 3526 / 3526 1950 / 1950 900 / 900 Balance 1081.206 / 1081.206 -783.636 / -783.636 975.737 / 975.737 309 / 309 Daily Fluid Goal:: Even GI Nutrition: Regular diet ok from my perspective Date of Last Bowel Movement: 04/01/21 Infectious Disease: No acute infectious concerns at this point - acyclovir discontinued - would discontinue aztreonam Hematologic: Anemia Slow trend downwards, likely due to blood draws Neurologic: AMS Working diagnosis is likely initial baclofen withdrawal followed by oversedation with long-acting agents (Versed) as well as high-dose narcotics (fentanyl). Patient is now much improved after an appropriate washout period has passed. The elevated CSF protein is still on accounted for and signifies some sort of inflammatory process in the central nervous system. - Recommend weaning clonidine, would recommend switching to twice daily tomorrow and then discontinuing - Recommend discontinuing Keppra - delerium prevention (windows open and lights on during day, lights off and noise low at night) Endocrine: No acute concerns Prophylaxis: Lovenox No GI ppx inficated at this time Code Status: Resuscitation Status Full Code Subjective Critical and life-threatening events over the past 24 hours: Patient remained in the ICU overnight however this morning shows remarkable improvement. He is awake and completely alert although still slightly drowsy. He is clinically doing much better. He says he feels a lot better and does not remember his hospitalization or being intubated. Exam Const General: no acute distress Nutritional Appearance: obese HENMT Head: normocephalic Ears: external ears normal and no periauricular adenopathy General nose exam: external nose normal Face and sinus: normal facial exam Mouth: moist mucous membranes Teeth and gingiva: dentition normal Eyes General: appearance normal, both eyes and all related structures Pupils: not reactive bilaterally and pinpoint bilaterally Neck Neck: normal visual inspection and no lymphadenopathy Chest Chest: normal inspection of the chest Resp Effort & Inspection: normal respiratory effort Auscultation: clear to auscultation bilaterally, no rales, no rhonchi and no wheezes Cardio Rate: regular rate Rhythm: regular rhythm Heart Sounds: S1 normal, S2 normal and no murmurs Pulses: radial pulses present bilaterally GI Inspection: normal to inspection Palpation: soft Skin Trauma: laceration (scrapes on bilateral hands) Nails: other (dirty) Neuro General: patient alert, patient awake, patient oriented x3, no meningeal signs and no focal motor deficits Extrem General: no clubbing, no cyanosis and edema Laterality: bilateral Psych Mental Status: mental status grossly normal Affect: normal affect Attitude: cooperative Most Recent VS/Results Last Vital Signs Temp 37.2 C 04/02/21 03:45 Pulse 57 L 04/02/21 04:01 Resp 22 04/02/21 04:01 BP 154/75 H 04/02/21 04:01 Pulse Ox 96 04/02/21 00:42 Laboratory Results - last 24 hr 03/30/21 03/31/21 04/02/21 03:15 Unknown 06:10 WBC RBC Hgb Hct MCV MCH MCHC RDW Plt Count MPV Immature Gran % Neutrophils % Lymphocytes % Monocytes % Eosinophils % Basophils % Nucleated RBC % Absolute Neutrophils Absolute Lymphocytes Absolute Monocytes Absolute Eosinophils Absolute Basophils Sodium 147 H Potassium 3.2 L Chloride 107 Carbon Dioxide 30.0 Anion Gap 10.0 BUN 13 Creatinine 0.6 L Estimated GFR/1.73 m2 >= 60.00 Glucose 117 H Calcium 8.6 Urine Myoglobin 20 CSF Paraneoplas Syn Int Cancelled CSF Anti-Neuronal Typ 1 Cancelled CSF Anti-Neuronal Typ 2 Cancelled CSF Anti-Neuronal Typ 3 Cancelled CSF AGNA-1 Cancelled Purkinje Cyto Ab Trace Cancelled CSF Purkinje Cyto Ab 1 Cancelled CSF Purkinje Cyto Ab 2 Cancelled CSF Amphiphysin Ab Cancelled CSF CRMP-5 IgG Ab Cancelled Paraneoplas Reflex Add Cancelled 04/02/21 06:10 WBC 10.04 RBC 3.73 L Hgb 11.3 L Hct 33.9 L MCV 90.9 MCH 30.3 MCHC 33.3 RDW 12.9 Plt Count 244 MPV 11.4 H Immature Gran % 0.8 Neutrophils % 70.2 Lymphocytes % 14.7 Monocytes % 10.0 Eosinophils % 3.5 Basophils % 0.8 Nucleated RBC % 0 Absolute Neutrophils 7.05 H Absolute Lymphocytes 1.48 Absolute Monocytes 1.00 H Absolute Eosinophils 0.35 Absolute Basophils 0.08 Sodium Potassium Chloride Carbon Dioxide Anion Gap BUN Creatinine Estimated GFR/1.73 m2 Glucose Calcium Urine Myoglobin CSF Paraneoplas Syn Int CSF Anti-Neuronal Typ 1 CSF Anti-Neuronal Typ 2 CSF Anti-Neuronal Typ 3 CSF AGNA-1 Purkinje Cyto Ab Trace CSF Purkinje Cyto Ab 1 CSF Purkinje Cyto Ab 2 CSF Amphiphysin Ab CSF CRMP-5 IgG Ab Paraneoplas Reflex Add Review of Systems Constitutional Constitutional: Reports fatigue, Reports lethargy and Reports weakness Cardiovascular Cardiovascular: Reports dyspnea Respiratory Respiratory: Reports dyspnea Neurologic Neurologic: Reports confusion, Reports memory loss and Reports weakness Psychiatric Psychiatric: Reports confusion and Reports memory loss Endocrine Endocrine: Reports fatigue
[2021-04-02] MEDS: Insulin Aspart 300 UNITS/3 ML PEN SC (12:08)
[2021-04-02] MEDS: Acetaminophen 325 MG TAB 650 MG PO (12:09)
--- NOTE | 2021-04-02 15:19 | NUR.NOTE ---
Nursing Note: 1130 This RN receive report from [employer]ODUCT MANAGENT INTERN. 1135 Pt transferred from ICU to [facility] per MD order. Pt settled in and oriented in room 209. Vital signs obtain. Vital stable except blood pressure. Pt slightly hypertensive. Finger stick done. Head to toe assessment performed. Bed alarm on. See worklist for more information.
[2021-04-02] MEDS: Normal Saline 500 ML 30 ML IV (15:33)
--- NOTE | 2021-04-02 16:20 | PHA.REVIEW ---
Pharmacy Admission Review - Admission Clinical Review (Last Updated 03/27/21 @ 12:50 by Kendell Hoover) Elevated CK (Acute) Respiratory failure (Acute) Hypercapnia (Acute) Hypokalemia (Acute) Hypernatremia (Acute) DVT prophylaxis (Acute) New onset type 2 diabetes mellitus (Acute) Essential hypertension (Acute) Delirium (Acute) Altered mental status (Acute) Acute hypokalemia (Acute) Rhabdomyolysis (Acute) Rash and nonspecific skin eruption (Acute) Leukocytosis (Acute) Penicillins Allergy (Unknown, Unverified 06/24/18 19:47) Sulfa (Sulfonamide Antibiotics) Adverse Reaction (Intermediate, Unverified 06/24/18 19:47) vomitting Resuscitation Status Full Code Height 5 ft 4 in Weight 120.2 kg - Renal Dosing Renal Dosing: BUN 13 mg/dL (7-18) 04/02/21 06:10 Creatinine 0.6 mg/dL (0.70-1.30) L 04/02/21 06:10 Medications needing adjustments: Reviewed (Crcl over 100 mL/min if using adjusted body weight. Current meds okay.) - Anticoagulation Anticoagulation: Hgb 11.3 g/dL (13.5-17.5) L 04/02/21 06:10 Hct 33.9 % (40.0-50.0) L 04/02/21 06:10 Plt Count 244 10^3/uL (130-400) 04/02/21 06:10 INR 1.1 (0.9-1.1) 03/27/21 13:00 Creatinine 0.6 mg/dL (0.70-1.30) L 04/02/21 06:10 DVT Prophylaxis: Reviewed Medications: Enoxaparin Therapeutic Anticoagulation: N/A - Opiate Usage Evaluate Pain Scale/Pains Meds: N/A - Relevant Labs ESR 15 mm/hr (0-15) 03/28/21 06:20 Sodium 147 mmol/L (136-145) H 04/02/21 06:10 Potassium 3.2 mmol/L (3.5-5.1) L 04/02/21 06:10 Chloride 107 mmol/L (98-107) 04/02/21 06:10 Phosphorus 2.3 mg/dL (2.6-4.7) L 03/30/21 06:20 Magnesium 2.4 mg/dL (1.8-2.4) 03/28/21 10:35 C-Reactive Protein 5.34 mg/dL (0.0-0.3) H 03/28/21 06:20 Electrolytes, C-Reactive P, ESR: Reviewed (K+ replacement ordered, phos is low but not low enough replacement is recommended per Uptodate.) - DM Control DM Control: Glucose 117 mg/dL (74-106) H 04/02/21 06:10 Finger Stick Blood Glucose 249 Finger Stick Blood Glucose 249 Finger Stick Blood Glucose 249 Insulin Dosing: Reviewed (Sliding scale aspart ordered.) - Heart Failure/CT Heart Failure/CT: Troponin I < 0.05 ng/mL (<0.06) 03/27/21 13:00 EF%, RONEL's, B-Blockers, Diuretics: Reviewed - BP Control BP Control: Blood Pressure [Left Wrist] 155/70 Blood Pressure 171/81 Blood Pressure 179/89 Blood Pressure 152/70 If elevated: Reviewed (Has been elevated so far today. Has losartan ordered.) - Qtc Review If Elevated: N/A (QTc 433 on 03/30/21) - IV to PO Switch IV Medications: Reviewed - Home Meds Home Med List reviewed: Reviewed Relevent Home Meds Not ordered & why?: armodafinil, baclofen, chlorthalidone - Current meds Current Medication Order Review: Intervened (Talked to provider about cleaning up med list/the need of some the meds that were ordered while the pt was intubated but were likely no longer needed.) - Comments Comments/Follow Ups: Watch BP, BG, K+, phos, and for med changes. Antibiotic Activity - Pharmacy Antibiotic Review Pharmacy Antibiotic Activity: Antibiotic de-escalation (Metronidazole discontinued. Aztreonam continues (day 7).)
--- NOTE | 2021-04-02 18:51 | PDOC.CMPRO ---
- If Service Date Differs Date of service: 04/02/21 Time of Service: 18:51 Care Management Progress Note S/O: Wilver was sitting up in bed when CM met with him. He reported that he is feeling much better today, and is waiting for the provider to discuss the results of his brain MRI that happened earlier today. Per MD, his MRI was negative, and he will be cleared for discharge, likely tomorrow. CM discussed this with his mother, Lamar, over the phone. CM also coordinated a phone call between Lamar and , who discussed his progress and made recommendations regarding his returning to work (after his PCP appointment, hospital discharge follow up). Wilver is looking forward to returning home. CM will continue to follow. A: Wilver is a 45 year old male admitted to [facility] on 03/27/21 for agitated delerium. P: Wilver will return home when medically cleared. His parents will drive him home via private vehicle. He will follow up with his PCP and discharge plan of care. CM will continue to follow.
[2021-04-02] MEDS: Atorvastatin 40 MG TAB PO (20:37)
[2021-04-02] MEDS: levETIRAcetam 500 MG TAB PO (20:37)
--- NOTE | 2021-04-02 21:07 | W.PM.PROGNOT ---
Date of Service Date of service: 04/02/21 Time of Service: 21:07 Assessment and Plan Assessment and plan (1) Anemia: Status: Chronic Assessment and plan: Stable Hgb MCV,B12, folate normal. (2) Elevated CK: Status: Acute Assessment and plan: Improving (3) Hypokalemia: Status: Acute Assessment and plan: K 3.2 today Oral replacement Monitor (4) Hypernatremia: Status: Acute Assessment and plan: Improving. Na now 147. (5) New onset type 2 diabetes mellitus: Status: Acute Assessment and plan: Diabetic diet. Pt now alert and safe to eat. Glucose has been normal. ACHS glucose monitoring. SS insulin correction dosing. Decide on oral diabetic medication if needed, but likely will decide this as outpt with his PCP. (6) Essential hypertension: Status: Acute Assessment and plan: Restart his losartan and clonidine. Holding chlorthalidone currently while electrolytes normalize. Monitor (7) Altered mental status: Status: Acute Assessment and plan: Significant improvement. Now A&O,conversant and cooperative. Uncertain of etiology; patient does wonder if this was d/t to abrupt cessation in use of baclofen and/or armodafinil. MRI head normal Qualifiers: Altered mental status type: delirium Qualified Code(s): R41.0 - Disorientation, unspecified Subjective Subjective Patient reports: no new complaints, feels better, tolerating a regular diet and afebrile; denies nausea, vomiting and shortness of breath Interval history since last seen: Pt transfer to med-surg unit. Was confused about location this AM but now oriented. He has been calm and cooperative. Exam Narrative Exam Narrative: Intermittently flailing arms and trying to get out of bed when not restrained. Also pulls at keenan catheter. Const General: cooperative, no acute distress and other (agitated/restless) Nutritional Appearance: obese Orientation: alert, oriented to person and oriented to place Limitations: altered mental status Eyes Sclera: sclerae normal Pupils: PERRL Resp Effort & Inspection: normal respiratory effort Auscultation: clear to auscultation bilaterally Cardio Rate: regular rate Rhythm: regular rhythm Heart Sounds: S1 normal and S2 normal GI Inspection: obesity Palpation: soft and nontender Auscultation: normal bowel sounds Skin General skin exam: no rashes or lesions noted Neuro General: patient awake and no focal motor deficits Cranial Nerves: facial strength normal and gag reflex normal Cognition: abnormal cognition Speech: speech normal Extrem General: no pedal edema and no calf tenderness Psych Appearance: grossly normal Mood: congruent mood Affect: normal affect Objective Last Vital Signs Temp 37 C 04/02/21 15:22 Pulse 60 04/02/21 15:49 Resp 22 04/02/21 15:22 BP 171/81 H 04/02/21 15:22 Pulse Ox 95 04/02/21 15:22 Laboratory Results - last 24 hr 03/31/21 04/02/21 04/02/21 Unknown 06:10 06:10 WBC 10.04 RBC 3.73 L Hgb 11.3 L Hct 33.9 L MCV 90.9 MCH 30.3 MCHC 33.3 RDW 12.9 Plt Count 244 MPV 11.4 H Immature Gran % 0.8 Neutrophils % 70.2 Lymphocytes % 14.7 Monocytes % 10.0 Eosinophils % 3.5 Basophils % 0.8 Nucleated RBC % 0 Absolute Neutrophils 7.05 H Absolute Lymphocytes 1.48 Absolute Monocytes 1.00 H Absolute Eosinophils 0.35 Absolute Basophils 0.08 Sodium 147 H Potassium 3.2 L Chloride 107 Carbon Dioxide 30.0 Anion Gap 10.0 BUN 13 Creatinine 0.6 L Estimated GFR/1.73 m2 >= 60.00 Glucose 117 H Calcium 8.6 CSF Paraneoplas Syn Int Cancelled CSF Anti-Neuronal Typ 1 Cancelled CSF Anti-Neuronal Typ 2 Cancelled CSF Anti-Neuronal Typ 3 Cancelled CSF AGNA-1 Cancelled Purkinje Cyto Ab Trace Cancelled CSF Purkinje Cyto Ab 1 Cancelled CSF Purkinje Cyto Ab 2 Cancelled CSF Amphiphysin Ab Cancelled CSF CRMP-5 IgG Ab Cancelled Paraneoplas Reflex Add Cancelled
[2021-04-03 00:41] VITALS: PULSE 56
[2021-04-03 01:02] VITALS: BP 133/73; PULSE 57; RESP 20; TEMP 36.6; O2SAT 95
[2021-04-03 03:46] VITALS: BP 163/80; PULSE 60; RESP 20; TEMP 37.2; O2SAT 94
[2021-04-03] MEDS: AZTREONAM 2,000 MG in Normal Saline 100 ML 200 MG IVPB (05:56)
[2021-04-03] MEDS: Normal Saline Flush 10 ML SYR IVP ×2 (06:00→09:26)
[2021-04-03] MEDS: Enoxaparin 40 MG/0.4 ML SYR SC (07:40)
[2021-04-03] MEDS: cloNIDine 0.1 MG TAB PO (07:41)
[2021-04-03] MEDS: Famotidine 20 MG TAB PO (07:41)
[2021-04-03] MEDS: Potassium Chloride 20 MEQ TABCR PO (07:41)
[2021-04-03] MEDS: PARoxetine 20 MG TAB 40 MG PO (07:41)
[2021-04-03] MEDS: Nystatin POWDER 60 GM JAR TP (07:41)
[2021-04-03] MEDS: Losartan 50 MG TAB 100 MG PO (07:41)
[2021-04-03] MEDS: levETIRAcetam 500 MG TAB PO (07:41)
[2021-04-03 08:06] VITALS: BP 147/86; PULSE 53; RESP 17; TEMP 36.7; O2SAT 96
--- NOTE | 2021-04-03 08:23 | IN_ITS ---
Date of service: 04/03/21 Time of Service: 08:10 PT Notes Visit Reasons: Agitated Delerium Inpatient Physical Therapy Evaluation Date: 04/03/21 Referring Doctor: Ryland Siddiqi PT Orders: PT CONSULT: Evaluate and treat Precautions: Standard Patient Profile/Admitting Diagnosis: Orders received for this 45-year-old male who was brought to the hospital in a state of acute delirium. This was unexpected and beyond baseline level of function. Patient does admit to having a history of back pain and was on baclofen which was abruptly discontinued. He apparently was so out of sorts that he required ventilation and at times was restrained. After short stay in the hospital he appears to be much more stable in terms of his mental status. PMHX: Medical History (Updated 03/27/21 @ 13:27 by Kendell Hoover) Depression Essential hypertension History of chronic back pain Hyperlipidemia New onset type 2 diabetes mellitus Social History/Home Situation: Patient lives currently with his parents in [place] Equipment Owned/DME: Nothing currently Subjective: Patient states that he feels quite a bit better and does feel like he is ready to go home Objective: Patient lying in bed no medical lines in place currently Mental Status: Well oriented alert to person place and time Pain: Nothing globally however he does have some isolated pain to the hands which are more of a fullness and swollen presentation ROM: Right Upper Extremity: Within normal limits Left Upper Extremity: Within normal limits Right Lower Extremity: Within normal limits Left Lower Extremity: Within normal limits Strength: Right Upper Extremity: Globally 5 out of 5 Left Upper Extremity: Globally 5 out of 5 Right Lower Extremity: Globally 5 out of 5 Left Lower Extremity: Globally 5 out of 5 Bed Mobility/Transfers: Patient independently gets out of bed from a supine position Sit-stand: Independent Stand-sit: Independent Gait: Within normal limits no evidence of any antalgia or ataxia Balance: Static Sitting: Normal Dynamic Sitting: Normal Static Standing: Normal Dynamic Standing: Normal Special Tests: Tinetti balance and gait assessment: Mobility Limitations Standardized Measure [facility] AM-PAC 6 clicks Basic Mobility Inpatient Short Form: Raw Score: 24 Standardized Score: 61.14 CMS Score: 0% Informed Consent/Education: Patient instructed in purpose of PT consult and plan of care. ASSESSMENT: Patient is a 35-year-old male with a history of good physical health and also substance abuse history that may have recently been exacerbated Admitted with resolving acute delirium Patient presents with the following impairment level findings: No significant findings upon today's evaluation Pt does not appears to require extended Physical Therapy services at the time of this evaluation Impairments are contributing to the following functional limitations: AMPAC score 0%: Patient is assessed as a low complexity initial evaluation 85341 based on the following: History: see above Examination: see above Presentation: Stable Decision Making: Low based on patient having 0% dysfunction by way of impact testing as well as full function as observed by the Tinetti balance and gait assessment Plan of Care/Treatment Plan: There would be no formal follow-up in the continuation of care as patient has achieved a baseline position in terms of functional mobility and independence DISCHARGE RECOMMENDATIONS: To home once been medically stable TREATMENT CODE/TIME: Low complexity initial evaluation 23891,, treatment 810. 15 minutes of direct patient care Tirso Reed, DP[facility]
[2021-04-03 09:35] LABS: Abs Immature Grans 0.09 10^3/uL (0.0-0.06); Absolute Basophil Count 0.07 10^3/uL (0.0-0.2); Absolute Eosinophil Count 0.48 10^3/uL (0.0-0.7); Absolute Lymphocyte Count 1.95 10^3/uL (1.2-3.4); Absolute Neutrophil Count 5.55 10^3/uL (1.2-6.7); Basophils % 0.8; Eosinophils % 5.4; HCT 32.7 % (40.0-50.0); HGB 11.2 g/dL (13.5-17.5); Lymphocytes % 21.8; MCH 30.8 pg (27.0-33.0); MCHC 34.3 % (32.0-36.0); MCV 89.8 fL (80-95); MPV 11.1 fL (8.0-11.0); Monocytes % 8.9; Neutrophils % 62.1; Nucleated RBC 0 %; Platelet Count 245 10^3/uL (130-400); RBC 3.64 10^6/uL (4.36-5.78); RDW 13.2 % (11.8-14.1); RDW-SD 43.1 fL; WBC 8.94 10^3/uL (4.4-10.8)
[2021-04-03 09:52] LABS: Anion Gap 8.8 mmol/L (3-11); BUN 12 mg/dL (7-18); CO2 29.2 mmol/L (21.0-32.0); CREATININE 0.6 mg/dL (0.70-1.30); Calcium 8.3 mg/dL (8.5-10.1); Chloride 108 mmol/L (98-107); Creatine Kinase 788 U/L (39-308); Glucose 117 mg/dL (74-106); Magnesium 1.8 mg/dL (1.8-2.4); Potassium 3.1 mmol/L (3.5-5.1); Sodium 146 mmol/L (136-145)
[2021-04-03 10:00] VITALS: PULSE 53
[2021-04-03] MEDS: Potassium Chloride 20 MEQ TABCR 40 MEQ PO (10:22)
--- NOTE | 2021-04-03 13:20 | DSE_ITS ---
DS: Diagnosis Discharge Diagnosis (1) Encephalopathy acute: Status: Acute (2) New onset type 2 diabetes mellitus: Status: Acute (3) Elevated CK: Status: Acute (4) Hypokalemia: Status: Acute (5) Anemia: Status: Chronic (6) NICO treated with BiPAP: Status: Chronic (7) Chronic hypercapnic respiratory failure: Status: Chronic (8) Hypernatremia: Status: Chronic (9) Essential hypertension: Status: Acute (10) COVID-19 ruled out by laboratory testing: Status: Acute Discharge Plan Disposition Patient Disposition: HOME Condition: Good Discharge Details Reason For Visit: Agitated Delerium Admit Date/Time: 03/27/21 07:20 Admit Provider: Kendell Hoover Attending Provider: Kendell Hoover Primary Care Provider: Ozzie Weinstein [facility] Hospital Course Hospital Course: Mr Burgos is a 45 year old male with PMHx of substance abuse, h/o baclofen withdrawal, NICO on BIPAP, chronic hypercapnic respiratory failure, who was admitted to [facility] hospitalist service on 03/27/21 for encephalopathy felt initially to be due to baclofen withdrawal requiring intubation. UDS was negative. COVID-19 was ruled out. LP was done and negative for an acute bacterial process to explain the encephalopathy, though the patient did receive empiric antibiotics. He does have elevated protein in CSF and should follow up with neurology on discharge. Blood and CSF cultures were negative. Viral encephalitis was considered and the patient was empirically treated with IV acyclovir. MRI brain was normal. EEG was consistent with a moderate diffuse cerebral encephalopathy but no focal epileptiform activity was seen. He was extubated on 03/31/21 and required sedation with ketamine and precedex due to agitation. He was eventually weaned off of these and his mental status normalized. At this point, the patient states he never did stop taking baclofen, but was using it at inappropriate doses and in combination with armodafinil, which he feels resulted in the problem. He feels like he was abusing these medcations and would like to go home on none of them. He is interested in substance abuse counseling and going back to AA meetings (he feels the letters do not matter.) We are getting him resources for this. Additionally, he did have evidence of elevated CPK and a rash. No clinical rhabdomyolysis was seen, but this presentation was very similar [place] [facility] [place] of baclofen withdrawal, hyperammonemia, and a rash then too. He is on a statin on discharge, which is being discontinued. If CPK elevation recurs, autoimmune myositis will need to be considered. Finally, the patient was newly diagnosed with diabetes and is being discharged home on metformin. His A1C was 6.8. This should be followed up by his PCP. The patient states he will make his own appointment with his PCP. He is medically stable for discharge home today. Care for patient as well as completion of his discharge summary on day of discharge took 45 minutes. Home Meds and New Rx's Prescriptions: New metformin 500 mg tablet 500 mg PO DAILY Qty: 30 RF: 0 potassium chloride 20 mEq tablet extended release 40 meq PO DAILY Qty: 20 RF: 0 Continued paroxetine HCl 20 MG tablet 40 mg PO DAILY RF: 0 losartan 100 MG tablet 100 mg PO DAILY RF: 0 clonidine HCl 0.1 mg tablet 0.1 mg PO TID RF: 0 Discontinued baclofen 10 mg tablet 10 mg PO TID PRNRF: 0 armodafinil 150 mg tablet 150 mg PO DAILY RF: 0 atorvastatin 40 mg tablet 40 mg PO DAILY RF: 0 chlorthalidone 25 mg Tablet 25 mg PO DAILY RF: 0 Discharge Instructions Instructions: Metformin (By mouth), Type 2 Diabetes in Adults: New Diagnosis (DC), Meal Planning with Diabetes Exchanges (DC), Acute Delirium (DC) Additional Instructions: Return to the hospital with any fever, bleeding, chest pain, or shortness of breath. Follow up with your PCP in 1-2 weeks. FOllow up with neurology. Bloodwork in 1 week - results to PCP. Stand Alone Forms: Nursing Discharge Form Referrals: Magaly Lopez [HYSTER DRIVER] - (new diagnosis of diabetes) Ozzie Weinstein [Primary Care Provider] - (Please call Monday to make a follow up appointment for 1-2 weeks) Yocasta Brito MD [ [facility] STAFF PHYSICIAN] - Activity:: Activity as Tolerated Equipment/Supplies:: No Equipment Needed Diet:: Carb Counting Discharge Orders Discharge Orders: Discharge Order (Routine); Ordered 04/03/21 Ordered By: Yarely Bynum Other Ambulatory Orders: Basic Metabolic Panel (Routine) Timeframe: 1 Week Location: Determined by Patient Ordered By: Yarely Bynum Creatine Kinase (Routine) Timeframe: 1 Week Location: Determined by Patient Ordered By: Yarely Bynum DS: Summary Time Spent with Patient providing and/or coordinating discharge services: Greater than 30 minutes Status at Discharge Functional status at discharge: independent ambulation Overall status at discharge: patient is back to baseline Mental Status: mental status grossly normal Speech and Movement: speech and movement normal Mood: congruent mood Affect: normal affect Exam Narrative Exam Narrative: General: Pleasant obese male, A&Ox3, answers questions appropriately, cooperative HEENT: EOMI, MMM Heart: RRR, no m/r/g Lungs: CTAB Abdomen: soft, nontender, nondistended, obese Extremities: diffuse papular rash, appears old/hyperpigmented. No edema BLE's Psych Mental Status: mental status grossly normal Speech and Movement: speech and movement normal Mood: congruent mood Affect: normal affect DS: Data Vitals/I&O Vitals and I&O: Vital Signs Temperature 36.7 C 04/03/21 08:06 Temperature Source Tympanic 04/03/21 08:06 Pulse 53 L 04/03/21 10:00 Pulse Rhythm Regular 04/03/21 07:39 Pulse 88 04/02/21 11:00 Respiratory Rate 17 04/03/21 08:06 Respiratory Effort Non-Labored 04/03/21 07:39 Respiratory Depth Normal 04/03/21 07:39 Respiratory Pattern Normal 04/03/21 07:39 Blood Pressure 147/86 H 04/03/21 08:06 Blood Pressure Mean 89 04/02/21 08:26 Blood Pressure Position Supine 04/02/21 07:40 Pulse Oximetry 96 04/03/21 08:06 Respiratory End-tidal CO2 45 03/31/21 07:20 Oxygen Delivery Method Room Air 04/03/21 08:06 Oxygen Flow Rate 0 04/03/21 08:06 Fraction of Inspired Oxygen (FIO2) 2 03/31/21 23:35 Pain Level 0 04/03/21 12:20 Comment 04/03/21 12:43 Intake & Output 04/02/21 04/03/21 04/03/21 23:59 11:59 23:59 Intake Total 830.5 / 2139.5 1060 / 1060 Balance 830.5 / 939.5 1060 / 1060 Weight 123.6 kg 122.4 kg Intake: IV 280.5 / 1039.5 Oral 550 / 1100 1030 / 1030 Other: Urine Color Yellow Yellow Urine Appearance Clear Clear Urine Odor Normal Normal Comment Per pt. report, void x1 in the toilet. Per pt. report, void x1 in the toilet. Voiding Methods Toilet Toilet Data Completed and Pending Completed studies during hospitalization [Text1]: CXR 03/27/21: Supine portable AP chest films were obtained. The ET tube is present approximately 6 cm above the oanh. An NG tube is present, the tip of which overlies the gastric fundus. Lungs are grossly clear and well expanded. Multiple old healed left rib fractures noted. No gross pleural effusion seen on these supine images. CT head 03/27/21: No evidence of acute intracranial process. CXR 03/28/21: Findings suggesting new atelectasis and/or consolidation of both lung bases, left greater than right. Appropriate follow-up studies requested. CT head 03/28/21: Normal cranial CT. CXR 03/28/21: Significant left lower lobe infiltrate and left pleural effusion without radiographic improvement.Opposite-right lung appears relatively clear. No pneumothorax. ET tube position is satisfactory. CXR 03/29/21: NG tube is in the stomach. Is distal tip in the body of the stomach this is in satisfactory position. There is infiltrate in the left lower lobe and small left pleural effusion. The bowel gas pattern is nonspecific in the supine position. CXR 03/30/21: Persistent left lower lobe infiltrate. Small left pleural effusion. Healed left-sided rib fractures. ET tube remains in satisfactory position MRI brain 04/02/21: Normal brain MRI Labs on day of discharge: Labs from last 24 hours 04/03/21 04/03/21 09:26 09:26 WBC 8.94 RBC 3.64 L Hgb 11.2 L Hct 32.7 L MCV 89.8 MCH 30.8 MCHC 34.3 RDW 13.2 Plt Count 245 MPV 11.1 H Immature Gran % 1.0 Neutrophils % 62.1 Lymphocytes % 21.8 Monocytes % 8.9 Eosinophils % 5.4 Basophils % 0.8 Nucleated RBC % 0 Absolute Neutrophils 5.55 Absolute Lymphocytes 1.95 Absolute Monocytes 0.80 Absolute Eosinophils 0.48 Absolute Basophils 0.07 Sodium 146 H Potassium 3.1 L Chloride 108 H Carbon Dioxide 29.2 Anion Gap 8.8 BUN 12 Creatinine 0.6 L Estimated GFR/1.73 m2 >= 60.00 Glucose 117 H Calcium 8.3 L Magnesium 1.8 Creatine Kinase 788 H [facility] Medical History Chronic hypercapnic respiratory failure Depression Essential hypertension History of chronic back pain Hyperlipidemia New onset type 2 diabetes mellitus Obesity, morbid, BMI 40.0-49.9 NICO treated with BiPAP Polysubstance abuse Social History Smoking/Tobacco Use Status: Current every day Smoking risk assessment performed?: Yes Drug use: Never Do you feel safe at home: Yes Do you feel safe in your relationship?: Yes
[2021-04-03] MEDS: Bacitracin 1 PACKET TP (13:40)
--- NOTE | 2021-04-03 14:15 | RESPIRATORY ---
Pt says he uses a [employer] thru [employer] and will contact them about the recall.
[2021-04-05 12:29] LABS: Result Negative (Negative); Specimen Description CSF
== END 2021-04-03 14:17 | disposition home or self-care (01) | DRG 70 ==
LOC: ER 08:10 → ICU 09:00 → MS 04-02 11:47
PROVIDERS: Family Medicine; Internal Medicine; Admitting Provider Internal Medicine; Emergency Provider Student in an Organized Health Care Education/Training Program; PCP Family Medicine; Visit Provider Internal Medicine
DX: G93.49 Other encephalopathy (principal); J96.00 Acute respiratory failure, unspecified whether with hypoxia or hypercapnia; A86 Unspecified viral encephalitis; J96.12 Chronic respiratory failure with hypercapnia; E87.2 Acidosis; N17.9 Acute kidney failure, unspecified; K56.7 Ileus, unspecified; Z68.42 Body mass index [BMI] 45.0-49.9, adult; E87.1 Hypo-osmolality and hyponatremia; E87.0 Hyperosmolality and hypernatremia; F19.239 Other psychoactive substance dependence with withdrawal, unspecified; E11.9 Type 2 diabetes mellitus without complications; E87.6 Hypokalemia; D64.9 Anemia, unspecified; G47.33 Obstructive sleep apnea (adult) (pediatric); I10 Essential (primary) hypertension; Z20.822 Contact with and (suspected) exposure to COVID-19; F19.10 Other psychoactive substance abuse, uncomplicated; G89.29 Other chronic pain; M54.9 Dorsalgia, unspecified; E78.00 Pure hypercholesterolemia, unspecified; D72.825 Bandemia; J45.909 Unspecified asthma, uncomplicated; Z78.1 Physical restraint status; F32.9 Major depressive disorder, single episode, unspecified; E66.9 Obesity, unspecified; R21 Rash and other nonspecific skin eruption
CPT/HCPCS: 62270; 31500; 36415; 36573; 36592; 71045; 80048; 80053; 80307; 82550; 82805; 82945; 84145; 85652; 86255; 87040; 87116; 87206; 87529; 87635; 87798; 87799; 89050; 89051; 93005; 95819; 95822; 96361; 96365; 96366; 96367; 96375; 97161; 99291; J1650; 36600; 70450; 70551; 74018; 80202; 80320; 80329; 81003; 81015; 82140; 82270; 82607; 82746; 83605; 83735; 83874; 84100; 84132; 84133; 84157; 84300; 84443; 84484; 85014; 85018; 85025; 85610; 85730; 86038; 86140; 86225; 86403; 86592; 86618; 87070; 87205; 87496; 93010; 94002; 94003; 94640; 99232; 99233; 99239; J0131; J0133; J1941; J1953; J2060; J3010; J3360; J3480; J3486; J3490; J7060; J7620

== ENCOUNTER 2021-04-08 16:59 | Outpatient (REF) | payer MEDICAID, SELFPAY ==
[2021-04-08 18:26] LABS: HGB 13.2 g/dL (13.5-17.5); MCH 30.9 pg (27.0-33.0); MCV 93.7 fL (80-95); MPV 11.3 fL (8.0-11.0); Platelet Count 443 10^3/uL (130-400); RBC 4.27 10^6/uL (4.36-5.78); RDW 13.9 % (11.8-14.1); RDW-SD 47.3 fL; WBC 11.07 10^3/uL (4.4-10.8)
[2021-04-08 19:34] LABS: ALT 108 U/L (16-63); AST 45 U/L (15-37); Albumin 3.8 g/dL (3.4-5.0); Alkaline Phosphatase 60 U/L (46-116); Anion Gap 7.5 mmol/L (3-11); BUN 17 mg/dL (7-18); Bilirubin, Total 0.2 mg/dL (0.2-1.0); CO2 27.5 mmol/L (21.0-32.0); CREATININE 0.8 mg/dL (0.70-1.30); Calcium 9.8 mg/dL (8.5-10.1); Chloride 105 mmol/L (98-107); Creatine Kinase 91 U/L (39-308); Glucose 102 mg/dL (74-106); Potassium 4.3 mmol/L (3.5-5.1); Sodium 140 mmol/L (136-145); Total Protein 7.1 g/dL (6.4-8.2)
== END 2021-04-08 17:00 | disposition home or self-care (01) ==
LOC: NCHCN 16:59
PROVIDERS: PCP Family Medicine; Visit Provider Physician Assistant
DX: D64.9 Anemia, unspecified (principal); R74.8 Abnormal levels of other serum enzymes; G93.40 Encephalopathy, unspecified
CPT/HCPCS: 80053; 82550; 85027; 83735